=== PATIENT | female | born 1940 | race Caucasian/White ===

== ENCOUNTER 2021-05-25 16:29 | Emergency (ER) | payer MEDICARE, SELFPAY ==
[2021-05-25 16:52] VITALS: BP 151/67; PULSE 68; RESP 18; TEMP 36.8; O2SAT 97; BMI 28.8
== END 2021-05-25 19:21 | disposition left against medical advice (07) ==
PROVIDERS: Emergency Provider Emergency Medicine; PCP Nurse Practitioner Family
DX: R22.0 Localized swelling, mass and lump, head (principal)
CPT/HCPCS: 99281

== ENCOUNTER 2021-06-06 14:53 | Outpatient (REF) | payer MEDICARE, SELFPAY ==
[2021-06-06 15:51] LABS: Influenza A PCR NEGATIVE (Negative); Influenza B PCR NEGATIVE (Negative); Resp Syncy Virus RNA Qual PCR NEGATIVE (Negative); SARS COV2 PCR INHOUSE NEGATIVE (Negative)
== END 2021-06-06 14:54 | disposition home or self-care (01) ==
LOC: HO.LNP 14:53
PROVIDERS: Visit Provider Internal Medicine
DX: Z20.822 Contact with and (suspected) exposure to COVID-19 (principal)
CPT/HCPCS: 0241U

== ENCOUNTER 2021-06-28 06:07 | Outpatient (REF) | payer MEDICARE, SELFPAY ==
[2021-06-28 06:28] LABS: MANUAL DIFF FLAG NO
[2021-06-28 07:09] LABS: Basophils Percent Auto 0.1 % (0-2); Eosinophils Percent Auto 0.1 % (0-4); Hematocrit 42.7 % (37.0-47.0); Hemoglobin 13.4 g/dl (12.0-16.0); Imm Gran Abs Auto 0.11 X10*3/uL (0.00-0.03); Lymphocytes Absolute Auto 1.6 X10*3/uL (1.2-4.9); Lymphocytes Percent Auto 13.9 % (20-40); Mean Corpuscular HGB Conc 31.4 g/dl (31.0-35.0); Mean Corpuscular Hemoglobin 28.8 pg (27.0-33.0); Mean Corpuscular Volume 91.6 fL (80.0-98.0); Mean Platelet Volume 9.4 fL (9.4-12.3); Monocytes Absolute Auto 0.5 X10*3/uL (0.1-1.2); Monocytes Percent Auto 4.3 % (2-11); Neutrophils Absolute Auto 9.3 x10*3/uL (2.0-8.3); Neutrophils Percent Auto 80.6 % (45-73); Platelet Count 246 X10*3/uL (160-400); Red Blood Count 4.66 X10*6/uL (4.20-5.50); Red Cell Distribution Width 13.6 % (11.0-16.0); White Blood Count 11.5 X10*3/uL (4.8-10.8)
[2021-06-28 07:33] LABS: Alanine Aminotransferase 24 U/L (0-31); Albumin Level 4.1 g/dL (3.5-5.0); Alkaline Phosphatase 99 U/L (39-117); Anion Gap 15 (12-20); Aspartate Amino Transferase 20 U/L (5-31); Bilirubin Total 0.4 mg/dL (0.0-1.0); Blood Urea Nitrogen 26 mg/dL (9-16); Calcium 9.5 mg/dL (8.4-10.2); Carbon Dioxide 32 mmol/L (22-29); Chloride 100 mmol/L (96-108); Cholesterol 175 mg/dL; Estimated Glomerular Filt Rate 60; Glucose Fasting 118 mg/dL (60-99); HDL Cholesterol 63 mg/dL; LDL Cholesterol Calculated 92 mg/dl; Potassium 3.9 mmol/L (3.3-5.1); Sodium 143 mmol/L (135-145); Total Protein 6.9 g/dL (6.5-8.0); Triglycerides 101 mg/dL
[2021-06-28 07:54] LABS: Estimated Average Glucose 117 mg/dL; Hemoglobin A1c % 5.7 %
[2021-06-28 07:55] LABS: TSH reflex Free T4 0.72 uIU/mL (0.32-4.0)
[2021-06-28 08:04] LABS: Folate 19.2 ng/mL (> or = 4.0); Vitamin B12 600 pg/mL (200-900)
[2021-07-03 12:32] LABS: Vitamin D 25-OH, D2 <4 ng/mL; Vitamin D 25-OH, D3 36 ng/mL; Vitamin D 25-OH, Total 36 ng/mL (30-100)
== END 2021-06-28 06:08 | disposition home or self-care (01) ==
LOC: HO.LAB 06:07
PROVIDERS: PCP Internal Medicine; Visit Provider Nurse Practitioner Acute Care
DX: Z76.89 Persons encountering health services in other specified circumstances (principal)
CPT/HCPCS: 36415; 80053; 80061; 82306; 82607; 82746; 83036; 84443; 85025

== ENCOUNTER 2021-11-01 15:52 | Outpatient (REF) | payer MEDICARE, SELFPAY ==
[2021-11-01 16:42] LABS: Hematocrit 41.8 % (37.0-47.0); Hemoglobin 13.5 g/dl (12.0-16.0); Mean Corpuscular HGB Conc 32.3 g/dl (31.0-35.0); Mean Corpuscular Volume 89.7 fL (80.0-98.0); Mean Platelet Volume 9.2 fL (9.4-12.3); Platelet Count 284 X10*3/uL (160-400); Red Blood Count 4.66 X10*6/uL (4.20-5.50); Red Cell Distribution Width 13.2 % (11.0-16.0); White Blood Count 6.6 X10*3/uL (4.8-10.8)
[2021-11-01 16:56] LABS: Appearance Urine CLEAR; Color Urine YELLOW; Glucose Urine UA NEG (NEG); Leukocyte Esterase Urine 1+ (NEG); Nitrite Urine NEG (NEG); PH 5.5 (5.0-8.0); Urine Blood NEG (NEG); Urine Ketones NEG (NEG); Urine Protein NEG (NEG-TRACE)
[2021-11-01 17:00] LABS: Bacteria Urine 1+ /LPF; RBC Urine 0 /HPF (0); Squamous Epithelial Cell Urine 1+ /LPF
[2021-11-01 18:06] LABS: Alanine Aminotransferase 48 U/L (0-31); Albumin Level 4.2 g/dL (3.5-5.0); Alkaline Phosphatase 116 U/L (39-117); Anion Gap 16 (12-20); Aspartate Amino Transferase 39 U/L (5-31); Bilirubin Direct 0.2 mg/dL (0.0-0.5); Bilirubin Total 0.4 mg/dL (0.0-1.0); Blood Urea Nitrogen 25 mg/dL (9-16); Calcium 9.7 mg/dL (8.4-10.2); Carbon Dioxide 34 mmol/L (22-29); Chloride 96 mmol/L (96-108); Cholesterol 178 mg/dL; Estimated Glomerular Filt Rate 52; Glucose Random 101 mg/dL (60-115); HDL Cholesterol 43 mg/dL; LDL Cholesterol Calculated 90 mg/dl; Potassium 4.1 mmol/L (3.3-5.1); Sodium 142 mmol/L (135-145); Total Protein 7.2 g/dL (6.5-8.0); Triglycerides 225 mg/dL
[2021-11-01 18:28] LABS: Thyroid Stimulating Hormone 1.02 uIU/mL (0.32-4.0)
== END 2021-11-01 15:53 | disposition home or self-care (01) ==
LOC: HO.LAB 15:52
PROVIDERS: PCP Internal Medicine; Visit Provider Internal Medicine
DX: I48.91 Unspecified atrial fibrillation (principal); E04.1 Nontoxic single thyroid nodule
CPT/HCPCS: 36415; 80048; 80061; 80076; 81001; 84443; 85027

== ENCOUNTER 2021-12-12 08:26 | Outpatient (REF) | payer MEDICARE, SELFPAY ==
--- NOTE | ~2021-12-12 | XR_ITS ---
EXAMINATION: XR FOOT, LEFT CLINICAL INFORMATION: Primary osteoarthritis. COMPARISON: Left foot radiographs dated 10/12/2015. TECHNIQUE: AP, lateral, and oblique views of the left foot. FINDINGS: There is a minimally displaced oblique fracture in the distal diaphysis of the fifth metatarsal. The remainder of the digits are intact. Mild interphalangeal degenerative joint changes are seen. The tarsal bones are normally aligned. There is a small plantar calcaneal spur. Mild calcifications are seen proximally in the plantar fossa distally in the Achilles tendon. XR/XR foot LT min 3V IMPRESSION: 1. Minimally displaced oblique fracture of the distal metaphysis of the fifth metatarsal is of indeterminate age, but appears subacute or chronic, but was not seen on the 2016 study. Correlate with physical exam and trauma history. 2. Mild degenerative changes as detailed above represents mild interval increase from the previous study.
== END 2021-12-12 08:27 | disposition home or self-care (01) ==
LOC: HO.XRAY 08:26
PROVIDERS: PCP Internal Medicine; Visit Provider Internal Medicine
DX: M19.072 Primary osteoarthritis, left ankle and foot (principal)
CPT/HCPCS: 73630

== ENCOUNTER 2022-03-04 05:55 | Outpatient (REF) | payer MEDICARE, SELFPAY ==
[2022-03-04 06:14] LABS: MANUAL DIFF FLAG NO
[2022-03-04 07:33] LABS: Basophils Percent Auto 0.9 % (0-2); Eosinophils Absolute Auto 0.1 X10*3/uL (0.0-0.4); Eosinophils Percent Auto 1.8 % (0-4); Hematocrit 41.2 % (37.0-47.0); Hemoglobin 12.8 g/dl (12.0-16.0); Imm Gran Abs Auto 0.01 X10*3/uL (0.00-0.03); Imm Gran Pct Auto 0.2 % (0.0-0.4); Lymphocytes Absolute Auto 1.7 X10*3/uL (1.2-4.9); Lymphocytes Percent Auto 37.7 % (20-40); Mean Corpuscular HGB Conc 31.1 g/dl (31.0-35.0); Mean Corpuscular Hemoglobin 28.3 pg (27.0-33.0); Mean Corpuscular Volume 91.2 fL (80.0-98.0); Mean Platelet Volume 9.5 fL (9.4-12.3); Monocytes Absolute Auto 0.4 X10*3/uL (0.1-1.2); Monocytes Percent Auto 9.5 % (2-11); Neutrophils Absolute Auto 2.3 x10*3/uL (2.0-8.3); Neutrophils Percent Auto 49.9 % (45-73); Platelet Count 223 X10*3/uL (160-400); Red Blood Count 4.52 X10*6/uL (4.20-5.50); White Blood Count 4.5 X10*3/uL (4.8-10.8)
[2022-03-04 08:02] LABS: Alanine Aminotransferase 27 U/L (0-31); Alkaline Phosphatase 111 U/L (39-117); Anion Gap 18 (12-20); Aspartate Amino Transferase 29 U/L (5-31); Bilirubin Total 0.4 mg/dL (0.0-1.0); Blood Urea Nitrogen 23 mg/dL (9-16); Calcium 9.5 mg/dL (8.4-10.2); Carbon Dioxide 33 mmol/L (22-29); Chloride 98 mmol/L (96-108); Cholesterol 194 mg/dL; Estimated Glomerular Filt Rate 53; Glucose Fasting 102 mg/dL (60-99); HDL Cholesterol 50 mg/dL; LDL Cholesterol Calculated 113 mg/dl; Potassium 4.4 mmol/L (3.3-5.1); Sodium 145 mmol/L (135-145); Total Protein 6.6 g/dL (6.5-8.0); Triglycerides 158 mg/dL
[2022-03-04 08:14] LABS: Vitamin D 25-OH Total 55.3 ng/mL (>30)
[2022-03-04 08:30] LABS: Vitamin B12 719 pg/mL (200-900)
== END 2022-03-04 05:56 | disposition home or self-care (01) ==
LOC: HO.LAB 05:55
PROVIDERS: PCP Internal Medicine; Visit Provider Internal Medicine
DX: I48.0 Paroxysmal atrial fibrillation (principal); R73.03 Prediabetes; E78.00 Pure hypercholesterolemia, unspecified; K21.9 Gastro-esophageal reflux disease without esophagitis
CPT/HCPCS: 36415; 80053; 80061; 82306; 82607; 85025

== ENCOUNTER → 2022-05-22 10:44 | Outpatient (REF) | payer MEDICARE, SELFPAY ==
--- NOTE | ~2022-05-22 | NM_ITS ---
EXAMINATION: BONE SCAN OF THE KNEES TO THE FEET CLINICAL INFORMATION: History stress fracture left foot 2-3 weeks ago, question new fractures.. COMPARISON: No previous bone scan is available for comparison. Radiographs of the left foot dated 12/12/2021 are available for comparison.. TECHNIQUE: Multiple gamma scintillation camera images of the knees to the feet in multiple projections were performed 2.25 hours following the intravenous administration of 27 mCi Tc-99m MDP. FINDINGS: There is a discrete focus of moderately intense abnormally increased activity present in the left proximal second metatarsal bone. There is very minimally increased activity in the distal left fifth metatarsal bone, just barely visible. There are additional foci of mildly increased activity in the tarsometatarsal joint regions of the left third and fourth digits, and this is superimposed on a mild diffuse increase in activity in the left foot and ankle. There is minimally increased activity in the right ankle. No other abnormalities are present in either foot. There is mildly increased activity in the patellar compartments of both knees and faintly in the lateral compartment on the right and the medial compartment on the left. No additional abnormalities are visualized. Radiographs of the left foot dated 12/12/2021 show a minimally displaced oblique fracture the distal left fifth metatarsal bone. This corresponds well to the mild abnormality in this region described above on this bone scan. However, there was no significant abnormality in the left second metatarsal bone that corresponds to the much more prominent abnormality at this site described above on this current bone scan. NM/NM bone 3 phase IMPRESSION: The focal abnormality in the base of the left second metatarsal bone is most consistent with a recent stress fracture. Faint abnormality in the distal left fifth metatarsal bone is consistent with a healing fracture at this site. A few additional mild abnormalities in the left foot, both ankles and in the patellar compartments of both knees are most likely due to degenerative arthritic disease.
== END ==
LOC: HO.NUCMED 10:44
PROVIDERS: PCP Internal Medicine; Visit Provider Podiatrist
DX: M84.375A Stress fracture, left foot, initial encounter for fracture (principal)
CPT/HCPCS: 78315; A9503

== ENCOUNTER 2022-06-06 11:16 | Outpatient (REF) | payer MEDICARE, SELFPAY ==
[2022-06-06 14:28] LABS: Alanine Aminotransferase 20 U/L (0-31); Albumin Level 4.3 g/dL (3.5-5.0); Alkaline Phosphatase 123 U/L (39-117); Anion Gap 13 (12-20); Aspartate Amino Transferase 21 U/L (5-31); Bilirubin Total 0.6 mg/dL (0.0-1.0); Blood Urea Nitrogen 21 mg/dL (9-16); Calcium 9.5 mg/dL (8.4-10.2); Carbon Dioxide 38 mmol/L (22-29); Chloride 100 mmol/L (96-108); Estimated Glomerular Filt Rate 54; Glucose Random 103 mg/dL (60-115); Potassium 4.5 mmol/L (3.3-5.1); Sodium 146 mmol/L (135-145); Total Protein 6.9 g/dL (6.5-8.0)
== END 2022-06-06 11:17 | disposition home or self-care (01) ==
LOC: HO.10HDL 11:16
PROVIDERS: Visit Provider Internal Medicine
DX: I48.0 Paroxysmal atrial fibrillation (principal); K21.9 Gastro-esophageal reflux disease without esophagitis; I50.9 Heart failure, unspecified
CPT/HCPCS: 36415; 80053

== ENCOUNTER 2022-09-05 11:50 | Outpatient (REF) | payer MEDICARE, SELFPAY ==
[2022-09-05 13:42] LABS: MANUAL DIFF FLAG NO
[2022-09-05 13:53] LABS: Basophils Percent Auto 0.7 % (0-2); Eosinophils Absolute Auto 0.1 X10*3/uL (0.0-0.4); Eosinophils Percent Auto 0.9 % (0-4); Hematocrit 41.1 % (37.0-47.0); Imm Gran Abs Auto 0.02 X10*3/uL (0.00-0.03); Imm Gran Pct Auto 0.3 % (0.0-0.4); Lymphocytes Absolute Auto 2.1 X10*3/uL (1.2-4.9); Lymphocytes Percent Auto 35.5 % (20-40); Mean Corpuscular HGB Conc 31.6 g/dl (31.0-35.0); Mean Corpuscular Hemoglobin 28.1 pg (27.0-33.0); Mean Platelet Volume 9.1 fL (9.4-12.3); Monocytes Absolute Auto 0.5 X10*3/uL (0.1-1.2); Monocytes Percent Auto 8.3 % (2-11); Neutrophils Absolute Auto 3.1 x10*3/uL (2.0-8.3); Neutrophils Percent Auto 54.3 % (45-73); Platelet Count 276 X10*3/uL (160-400); Red Blood Count 4.62 X10*6/uL (4.20-5.50); Red Cell Distribution Width 13.9 % (11.0-16.0); White Blood Count 5.8 X10*3/uL (4.8-10.8)
[2022-09-05 13:59] LABS: Appearance Urine Clear; Color Urine Dark Yellow; Glucose Urine UA Negative (Negative); Leukocyte Esterase Urine Trace (Negative); Nitrite Urine Negative (Negative); PH 6.5 (5.0-9.0); UMIC TRIGGER UA YES; Urine Blood Negative (Negative); Urine Ketones Negative (Negative); Urine Protein Negative (Neg-Trace)
[2022-09-05 14:04] LABS: Bacteria Urine None Seen (None Seen); Hyaline Casts Urine 0-2 /LPF (0-2); RBC Urine 0-2 /HPF (0-2); Squamous Epithelial Cell Urine 0-2 /HPF (0-2); WBC Urine 0-5 /HPF (0-5)
[2022-09-05 14:24] LABS: Alanine Aminotransferase 41 U/L (0-31); Albumin Level 4.2 g/dL (3.5-5.0); Alkaline Phosphatase 131 U/L (39-117); Anion Gap 14 (12-20); Aspartate Amino Transferase 35 U/L (5-31); Bilirubin Total 0.5 mg/dL (0.0-1.0); Blood Urea Nitrogen 27 mg/dL (9-16); C Reactive Protein 0.35 mg/dL (< or = 0.50); Calcium 9.6 mg/dL (8.4-10.2); Carbon Dioxide 34 mmol/L (22-29); Chloride 100 mmol/L (96-108); Estimated Glomerular Filt Rate 49; Glucose Random 107 mg/dL (60-115); Lipase 29 U/L (8-78); Potassium 4.3 mmol/L (3.3-5.1); Sodium 144 mmol/L (135-145); Total Protein 6.9 g/dL (6.5-8.0)
== END 2022-09-05 11:51 | disposition home or self-care (01) ==
LOC: HO.10HDL 11:50
PROVIDERS: Visit Provider Internal Medicine
DX: I48.0 Paroxysmal atrial fibrillation (principal); K21.9 Gastro-esophageal reflux disease without esophagitis; R10.9 Unspecified abdominal pain
CPT/HCPCS: 36415; 80053; 81001; 83690; 85025; 86140

== ENCOUNTER → 2022-09-26 10:56 | Outpatient (BNVA) | payer MEDICARE, SELFPAY | PROVIDERS: PCP Internal Medicine; Visit Provider Physician Assistant ==

== ENCOUNTER → 2022-10-07 12:58 | Outpatient (BNVA) | payer MEDICARE, SELFPAY | PROVIDERS: PCP Internal Medicine; Referring Provider Internal Medicine; Visit Provider Physician Assistant Surgical | DX: E66.3 Overweight (principal); Z68.27 Body mass index [BMI] 27.0-27.9, adult | CPT/HCPCS: 99202 ==

== ENCOUNTER 2022-12-05 11:12 | Emergency (ER) | payer MEDICARE, SELFPAY ==
--- NOTE | ~2022-12-05 | CT_ITS ---
EXAMINATION: CT ABDOMEN AND PELVIS WITHOUT CONTRAST CLINICAL INFORMATION: Constipation for 9 days. COMPARISON: CT abdomen and pelvis 11/24/2019. TECHNIQUE: Multidetector volumetric imaging was performed from the superior aspect of the liver through the pubic symphysis. Sagittal and coronal reformatted images were obtained on the technologist's workstation. This CT examination was performed using dose optimization techniques as appropriate, variously including the following: *Automated exposure control *Adjustment of mA and/or kV according to patient size (this includes techniques or standardized protocols for targeted exams where dose is matched to indication/reason for exam; i.e. extremities or head) *Use of iterative reconstruction technique DLP: 575 mGy-cm. FINDINGS: LUNG BASES: The visualized lung bases are unremarkable. Scarring is present in the lingula and right middle lobe. Pacemaker lead is present. LIVER, GALLBLADDER, AND BILIARY TREE: The liver is normal in size, shape, and attenuation. No focal hepatic lesion or biliary ductal dilatation is present. Status post cholecystectomy. PANCREAS: Unremarkable. SPLEEN: Unremarkable. Multiple splenules are seen. ADRENAL GLANDS: Unremarkable. KIDNEYS AND URETERS: The kidneys are normal in size, shape, and attenuation. A benign 1.9 cm Bosniak class I renal cyst is noted in the left mid kidney which requires no additional imaging or followup. No solid renal masses are seen. No hydronephrosis, hydroureter, or calculi seen. No perinephric stranding. BLADDER: Unremarkable. GASTROINTESTINAL TRACT: A coloenteric anastomosis is seen in the right pelvis. The small and large bowel are otherwise unremarkable. Moderate stool burden is present throughout the colon. ABDOMINAL WALL: No significant hernia is appreciated. LYMPH NODES: Normal. 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 The left renal vein is retroaortic. Calcification present in the aorta and iliac vessels without aneurysm. PELVIC VISCERA: Patient is status post hysterectomy. An abnormal pelvic mass or free fluid is not seen. OSSEOUS STRUCTURES: Degenerative changes are noted throughout the spine. There is grade 1 anterolisthesis of L4 on L5. CT/CT abdomen pelvis wo IV con IMPRESSION: 1. A cause for the patient's lower abdominal pain has not been found. 2. Incidental note made of cholecystectomy, hysterectomy, enteric anastomosis, azygous continuation of the IVC and degenerative changes in the spine with grade 1 anterolisthesis of L4 on L5. Fleischner guidelines were followed.
[2022-12-05 11:18] VITALS: BP 152/86; PULSE 88; RESP 18; TEMP 36.2; O2SAT 97; BMI 24.3
--- NOTE | 2022-12-05 11:19 | ED_ITS ---
HPI - General Adult General Chief complaint: Abdominal Pain Stated complaint: constipation Time Seen by Provider: 12/05/22 16:04 Source: patient Mode of arrival: ambulatory Limitations: no limitations History of Present Illness HPI narrative: Patient history of atrial fibrillation chronic constipation status post volvulus surgery and bowel resection years ago no history of small-bowel obstruction takes MiraLax daily for last 7 days patient not able to move her bowels does not feel any urge to move her bowels no nausea no vomiting no new medication no weight gain feels bloated Related Data Home Medications Medication Instructions Recorded Confirmed ascorbic acid (vitamin C) 500 mg 1 mg PO DAILY 06/26/21 10/07/22 capsule aspirin 81 mg tablet,delayed 81 mg PO DAILY 06/26/21 10/07/22 release (Adult Low Dose Aspirin) calcium carbonate 600 mg-vitamin 1 tab PO BID 06/26/21 10/07/22 D3 10 mcg (400 unit) tablet (Calcium with Vitamin D) cholecalciferol (vitamin D3) 25 25 mcg PO DAILY 06/26/21 10/07/22 mcg (1,000 unit) capsule docusate sodium 100 mg capsule 100 mg PO DAILY 06/26/21 10/07/22 (Stool Softener) multivit with 1 tab PO DAILY 06/26/21 10/07/22 icbutfpv-yxej-ER-lutein 8 mg iron-400 mcg-300 mcg tablet (Centrum Silver Women) simethicone 125 mg capsule (Gas-X 125 mg PO BEDTIME PRN 06/26/21 10/07/22 Extra Strength) torsemide 20 mg tablet 20 mg PO BID 06/26/21 10/07/22 AREDS2 PO BID 09/26/22 10/07/22 MAGNESIUM PO 09/26/22 10/07/22 TUMERIC PO 09/26/22 10/07/22 VITAMIN SUPER B COMPLEX PO 09/26/22 10/07/22 albuterol sulfate 90 mcg/actuation 2 inh inhalation Q4-6H PRN 09/26/22 10/07/22 breath activated powder inhaler (ProAir RespiClick) dicyclomine 10 mg capsule 10 mg PO BEDTIME PRN 09/26/22 10/07/22 fluticasone propionate 50 2 spray intranasal DAILY PRN 09/26/22 10/07/22 mcg/actuation nasal spray,suspension polyethylene glycol 3350 17 17 g PO DAILY 09/26/22 10/07/22 gram/dose oral powder (Miralax) Previous Rx's Medication Instructions Recorded omeprazole 20 mg tablet,delayed 20 mg PO DAILY #90 tabs 11/16/21 release apixaban 5 mg tablet (Eliquis) 5 mg PO BID #180 tabs 02/12/22 ezetimibe 10 mg tablet 10 mg PO DAILY #90 tabs 06/07/22 bisacodyl 5 mg tablet,delayed 10 mg PO BEDTIME PRN Constipation 12/05/22 release (Dulcolax (bisacodyl)) 20 days #20 tabs Allergies Allergy/AdvReac Type Severity Reaction Status Date / Time ciprofloxacin [Ciprofloxacin] Allergy Severe WHOLE Verified 12/05/22 11:20 DIGESTIVE SYSTEM SHUT DOWN gluten [GLUTEN] Allergy Intermediate DIARRHEA Verified 12/05/22 11:20 Sulfa (Sulfonamide Allergy Mild NAUSEA & Verified 12/05/22 11:20 Antibiotics) VOMITING, vomiting Doxycycline Hyclate Allergy Unknown severe Uncoded 12/05/22 11:20 thrush gluten Allergy Unknown (+) celiacs Uncoded 12/05/22 11:20 cipro AdvReac Unknown n/v Uncoded 12/05/22 11:20 sulfa AdvReac Unknown vomiting Uncoded 12/05/22 11:20 Review of Systems Review of Systems: Yes all other systems are reviewed and are negative [facility] Past Medical History Medical History Arthritis of right knee Atrial fibrillation Cancer of right breast Diastolic heart failure GERD (gastroesophageal reflux disease) Nodule of upper lobe of right lung Pacemaker Seasonal allergic rhinitis Thyroid nodule Vitamin D deficiency Surgical History H/O partial mastectomy H/O partial resection of colon History of appendectomy History of bladder suspension procedure History of cardiac radiofrequency ablation History of cholecystectomy History of hysterectomy Hx of cardiac pacemaker Hx of corrected cleft lip and palate Hx of tooth extraction Family History Family History Mother No problems noted. Father No problems noted. Social History Social History Housing: House Alcohol intake: never Patient Tobacco Use Status: Former Tobacco user Tobacco use type: Cigarette Smoked in Last 30 Days: No e-Cigarette/Vaping Use: Never Used Second Hand Smoke Exposure: No Use of substances other than those prescribed or required for medical reasons: No Advance Directives: No Advance Directives Information Provided: No service: No Current occupational status: retired Cognitive needs: No Hearing needs: No Vision needs: Yes (Glasses) Physical Exam ED Vital Signs: Vital Signs - 24 hr 12/05/22 11:18 12/05/22 16:38 Temperature 97.2 F 98.4 F Pulse Rate 88 62 Respiratory Rate 18 16 Blood Pressure 152/86 H 154/64 H Pulse Oximetry 97 97 Oxygen Delivery Method Room Air Room Air BMI result Body Mass Index 24.3 Appearance: Alert. Oriented X3. No acute distress. Eyes: PERRLA, No Nystagmus ENT: Pharynx normal. Oral Mucosa moist Neck: Normal inspection. Neck supple. CVS: Normal heart rate and rhythm. Pulses normal. Respiratory: No respiratory distress. Equal air entry bilateral, no wheezing/rales/rhonchi Abdomen: Soft and nontender. Bowel sounds are present, no mass palpable, no CVA tenderness rectal: No stool in the rectum Skin: Skin warm and dry. Normal skin color. Normal skin turgor. Extremities: No lower extremity edema. No calf tenderness Neuro: Oriented X 3. No motor deficit. No sensory deficit.No cerebellar signs , cranial nerves II-XII intact Course Course Course Narrative: This is an RME: Additional HPI, ROS, PE not included below will be deferred to primary provider. 82 yo f hx of afib on thinner, GERD, heart faliure presents w/ constipation, abd discomfort/ distention, nausea X9 days, last passed flatus a few days ago. Hx of obstructions Plan- labs, ct, ua Medications Administered Discontinued Medications Generic Name Dose Route Start Last Admin Trade Name Freq PRN Reason Stop Dose Admin Bisacodyl 10 mg 12/05/22 16:36 12/05/22 16:52 Bisacodyl 5 Mg Tablet.Dr PO 12/05/22 16:37 10 mg ONCE ONE Administration Magnesium Hydroxide 30 ml 12/05/22 16:36 12/05/22 16:52 Milk Of Magnesia 30 Ml Oral.Susp PO 12/05/22 16:37 30 ml ONCE ONE Administration Medical Decision Making Medical Decision Making [facility] Narrative: Patient constipation but without any obstruction S X. Was given extra dose of milk of magnesia and Dulcolax. Labs are stable slightly dehydrated was getting the fluids , TSH was done which was normal Differential Diagnosis Fecal impaction/small bowel obstruction/ hypothyroidism Lab Data [facility] Lab Attestation statement: I reviewed the patient's lab results. 12/05/22 11:48 12/05/22 11:48 Labs: Lab Results 12/05/22 12/05/22 Range/Units 11:48 11:48 WBC 9.7 (4.8-10.8) X10*3/uL RBC 5.04 (4.20-5.50) X10*6/uL Hgb 14.4 (12.0-16.0) g/dl Hct 44.3 (37.0-47.0) % MCV 87.9 (80.0-98.0) fL MCH 28.6 (27.0-33.0) pg MCHC 32.5 (31.0-35.0) g/dl RDW 14.9 (11.0-16.0) % Plt Count 218 (160-400) X10*3/uL MPV 8.7 L (9.4-12.3) fL Immature Gran % (Auto) 0.5 H (0.0-0.4) % Neut % (Auto) 74.8 H (45-73) % Lymph % (Auto) 18.8 L (20-40) % [place] % (Auto) 5.3 (2-11) % Eos % (Auto) 0.2 (0-4) % Baso % (Auto) 0.4 (0-2) % Lymph # (Auto) 1.8 (1.2-4.9) X10*3/uL [place] # (Auto) 0.5 (0.1-1.2) X10*3/uL Eos # (Auto) 0.0 (0.0-0.4) X10*3/uL Baso # (Auto) 0.0 (0.0-0.2) X10*3/uL Abs Immat Gran (auto) 0.05 H (0.00-0.03) X10*3/uL Absolute Neuts (auto) 7.3 (2.0-8.3) x10*3/uL Absolute Nucleated RBC 0.000 (0.0-0.012) X10*3/uL Nucleated RBC % (auto) 0.0 (0.0-0.2) /100WBC Sodium 140 (135-145) mmol/L Potassium 3.8 (3.3-5.1) mmol/L Chloride 89 L (96-108) mmol/L Carbon Dioxide 41 H* D (22-29) mmol/L Anion Gap 14 (12-20) BUN 35 H (9-16) mg/dL Creatinine 0.97 (0.5-1.4) mg/dL Estim Creat Clear Calc 43.5 Estimated GFR 55 Random Glucose 116 H (60-115) mg/dL Calcium 10.2 D (8.4-10.2) mg/dL Magnesium 2.6 (1.6-2.6) mg/dL Total Bilirubin 1.0 (0.0-1.0) mg/dL AST 34 H (5-31) U/L ALT 42 H (0-31) U/L Alkaline Phosphatase 111 (39-117) U/L Total Protein 7.6 (6.5-8.0) g/dL Albumin 4.1 (3.5-5.0) g/dL TSH 1.02 (0.32-4.0) uIU/mL Discharge Plan Discharge Clinical Impression: Constipation Patient Disposition: Home, Self-Care Instructions: Constipation (ED) Additional Instructions: Continue MiraLax daily, may repeated 2 times if not able to move your bowels Take Dulcolax if constipation continue Follow with PCP Prescriptions: New bisacodyl [Dulcolax (bisacodyl)] 5 mg tablet,delayed release (DR/EC) 10 mg PO BEDTIME PRN (Reason: Constipation) 20 Days Qty: 20 0RF No Action omeprazole 20 mg tablet,delayed release (DR/EC) 20 mg PO DAILY Qty: 90 1RF Eliquis 5 mg tablet 5 mg PO BID Qty: 180 0RF ezetimibe 10 mg tablet 10 mg PO DAILY Qty: 90 1RF torsemide 20 mg tablet 20 mg PO BID aspirin [Adult Low Dose Aspirin] 81 mg tablet,delayed release (DR/EC) 81 mg PO DAILY Centrum Silver Women 8 mg iron-400 mcg-300 mcg tablet 1 tab PO DAILY ascorbic acid (vitamin C) 500 mg capsule 1 mg PO DAILY calcium carbonate-vitamin D3 [Calcium with Vitamin D] 600 mg-10 mcg (400 unit) tablet 1 tab PO BID cholecalciferol (vitamin D3) 25 mcg (1,000 unit) capsule 25 mcg PO DAILY simethicone [Gas-X Extra Strength] 125 mg capsule 125 mg PO BEDTIME PRN docusate sodium [Stool Softener] 100 mg capsule 100 mg PO DAILY ProAir RespiClick 90 mcg/actuation aerosol powdr breath activated 2 inh inhalation Q4-6H PRN dicyclomine 10 mg capsule 10 mg PO BEDTIME PRN fluticasone propionate 50 mcg/actuation spray,suspension 2 spray intranasal DAILY PRN Rx Instructions: administer into each nostril MAGNESIUM PO TUMERIC PO AREDS2 PO BID polyethylene glycol 3350 [Miralax] 17 gram/dose powder 17 g PO DAILY VITAMIN SUPER B COMPLEX PO Interventions: ED Discharge Assessment Last Done: 12/05/22 17:28 Discharge Date/Time: 12/05/22 17:29
[2022-12-05 11:53] LABS: MANUAL DIFF FLAG NO
[2022-12-05 11:56] LABS: Basophils Percent Auto 0.4 % (0-2); Eosinophils Percent Auto 0.2 % (0-4); Hematocrit 44.3 % (37.0-47.0); Hemoglobin 14.4 g/dl (12.0-16.0); Imm Gran Abs Auto 0.05 X10*3/uL (0.00-0.03); Imm Gran Pct Auto 0.5 % (0.0-0.4); Lymphocytes Absolute Auto 1.8 X10*3/uL (1.2-4.9); Lymphocytes Percent Auto 18.8 % (20-40); Mean Corpuscular HGB Conc 32.5 g/dl (31.0-35.0); Mean Corpuscular Hemoglobin 28.6 pg (27.0-33.0); Mean Corpuscular Volume 87.9 fL (80.0-98.0); Mean Platelet Volume 8.7 fL (9.4-12.3); Monocytes Absolute Auto 0.5 X10*3/uL (0.1-1.2); Monocytes Percent Auto 5.3 % (2-11); Neutrophils Absolute Auto 7.3 x10*3/uL (2.0-8.3); Neutrophils Percent Auto 74.8 % (45-73); Platelet Count 218 X10*3/uL (160-400); Red Blood Count 5.04 X10*6/uL (4.20-5.50); Red Cell Distribution Width 14.9 % (11.0-16.0); White Blood Count 9.7 X10*3/uL (4.8-10.8)
[2022-12-05 12:14] LABS: Alanine Aminotransferase 42 U/L (0-31); Albumin Level 4.1 g/dL (3.5-5.0); Alkaline Phosphatase 111 U/L (39-117); Anion Gap 14 (12-20); Aspartate Amino Transferase 34 U/L (5-31); Blood Urea Nitrogen 35 mg/dL (9-16); Calcium 10.2 mg/dL (8.4-10.2); Carbon Dioxide 41 mmol/L (22-29); Chloride 89 mmol/L (96-108); Creatinine Clr Calc Pharmacy 43.5; Estimated Glomerular Filt Rate 55; Glucose Random 116 mg/dL (60-115); Magnesium 2.6 mg/dL (1.6-2.6); Potassium 3.8 mmol/L (3.3-5.1); Sodium 140 mmol/L (135-145); Total Protein 7.6 g/dL (6.5-8.0)
[2022-12-05 16:38] VITALS: BP 154/64; PULSE 62; RESP 16; TEMP 36.9; O2SAT 97
[2022-12-05] MEDS: Milk of Magnesia 30 ML ORAL.SUSP PO (16:52)
[2022-12-05] MEDS: bisacodyL 5 MG TABLET.DR 10 MG PO (16:52)
[2022-12-05 18:19] LABS: Thyroid Stimulating Hormone 1.02 uIU/mL (0.32-4.0)
== END 2022-12-05 17:29 | disposition home or self-care (01) ==
PROVIDERS: Physician Assistant; Emergency Provider Internal Medicine; PCP Internal Medicine
DX: K59.00 Constipation, unspecified (principal); R10.13 Epigastric pain; Z79.899 Other long term (current) drug therapy
CPT/HCPCS: 36415; 74176; 80053; 83735; 84443; 85025; 99284

== ENCOUNTER 2022-12-06 14:30 | Emergency (ER) | payer MEDICARE, SELFPAY ==
[2022-12-06 14:33] VITALS: BP 140/74; PULSE 90; RESP 18; TEMP 36.8; O2SAT 97; BMI 25.1
--- NOTE | 2022-12-06 14:33 | ED.GENADULT ---
HPI - General Adult General Chief complaint: Abdominal Pain Stated complaint: was here yesterday; doctor told her to come back? Time Seen by Provider: 12/06/22 15:16 History of Present Illness HPI narrative: Patient complains of constipation for several days, no vomiting no significant abdominal pain no fever She came here yesterday for the same complaint had a CT scan which did not reveal acute abnormalities She was given script for ducolax and milk of magnesia, she drank them this morning and they made her nauseous and she threw up once, but has had no nausea or vomiting since and tolerates p.o. She called her doctor who recommended she go to the ER for an enema At this time she has no significant abdominal pain no nausea no vomiting no diarrhea no dysuria Related Data Home Medications Medication Instructions Recorded Confirmed ascorbic acid (vitamin C) 500 mg 1 mg PO DAILY 06/26/21 10/07/22 capsule aspirin 81 mg tablet,delayed 81 mg PO DAILY 06/26/21 10/07/22 release (Adult Low Dose Aspirin) calcium carbonate 600 mg-vitamin 1 tab PO BID 06/26/21 10/07/22 D3 10 mcg (400 unit) tablet (Calcium with Vitamin D) cholecalciferol (vitamin D3) 25 25 mcg PO DAILY 06/26/21 10/07/22 mcg (1,000 unit) capsule docusate sodium 100 mg capsule 100 mg PO DAILY 06/26/21 10/07/22 (Stool Softener) multivit with 1 tab PO DAILY 06/26/21 10/07/22 sqjpmifq-gqlh-ZQ-lutein 8 mg iron-400 mcg-300 mcg tablet (Centrum Silver Women) simethicone 125 mg capsule (Gas-X 125 mg PO BEDTIME PRN 06/26/21 10/07/22 Extra Strength) torsemide 20 mg tablet 20 mg PO BID 06/26/21 10/07/22 AREDS2 PO BID 09/26/22 10/07/22 MAGNESIUM PO 09/26/22 10/07/22 TUMERIC PO 09/26/22 10/07/22 VITAMIN SUPER B COMPLEX PO 09/26/22 10/07/22 albuterol sulfate 90 mcg/actuation 2 inh inhalation Q4-6H PRN 09/26/22 10/07/22 breath activated powder inhaler (ProAir RespiClick) dicyclomine 10 mg capsule 10 mg PO BEDTIME PRN 09/26/22 10/07/22 fluticasone propionate 50 2 spray intranasal DAILY PRN 09/26/22 10/07/22 mcg/actuation nasal spray,suspension polyethylene glycol 3350 17 17 g PO DAILY 09/26/22 10/07/22 gram/dose oral powder (Miralax) Previous Rx's Medication Instructions Recorded omeprazole 20 mg tablet,delayed 20 mg PO DAILY #90 tabs 11/16/21 release apixaban 5 mg tablet (Eliquis) 5 mg PO BID #180 tabs 02/12/22 ezetimibe 10 mg tablet 10 mg PO DAILY #90 tabs 06/07/22 bisacodyl 5 mg tablet,delayed 10 mg PO BEDTIME PRN Constipation 12/05/22 release (Dulcolax (bisacodyl)) 20 days #20 tabs Allergies Allergy/AdvReac Type Severity Reaction Status Date / Time ciprofloxacin [Ciprofloxacin] Allergy Severe WHOLE Verified 12/05/22 11:20 DIGESTIVE SYSTEM SHUT DOWN gluten [GLUTEN] Allergy Intermediate DIARRHEA Verified 12/05/22 11:20 Sulfa (Sulfonamide Allergy Mild NAUSEA & Verified 12/05/22 11:20 Antibiotics) VOMITING, vomiting Doxycycline Hyclate Allergy Unknown severe Uncoded 12/05/22 11:20 thrush gluten Allergy Unknown (+) celiacs Uncoded 12/05/22 11:20 cipro AdvReac Unknown n/v Uncoded 12/05/22 11:20 sulfa AdvReac Unknown vomiting Uncoded 12/05/22 11:20 PMF Past Medical History Source: nursing notes reviewed Medical History Arthritis of right knee Atrial fibrillation Cancer of right breast Diastolic heart failure GERD (gastroesophageal reflux disease) Nodule of upper lobe of right lung Pacemaker Seasonal allergic rhinitis Thyroid nodule Vitamin D deficiency Surgical History H/O partial mastectomy H/O partial resection of colon History of appendectomy History of bladder suspension procedure History of cardiac radiofrequency ablation History of cholecystectomy History of hysterectomy Hx of cardiac pacemaker Hx of corrected cleft lip and palate Hx of tooth extraction Family History Family History Mother No problems noted. Father No problems noted. Social History Social History Housing: House Alcohol intake: never Patient Tobacco Use Status: Former Tobacco user Tobacco use type: Cigarette Smoked in Last 30 Days: No e-Cigarette/Vaping Use: Never Used Second Hand Smoke Exposure: No Use of substances other than those prescribed or required for medical reasons: No Advance Directives: Yes Advance Directives Information Provided: Yes Advance Directives on File: No service: No Current occupational status: retired Cognitive needs: No Hearing needs: No Vision needs: Yes (Glasses) Physical Exam ED Vital Signs: Vital Signs - 24 hr 12/06/22 14:33 Temperature 98.2 F Pulse Rate 90 Respiratory Rate 18 Blood Pressure 140/74 H Pulse Oximetry 97 Oxygen Delivery Method Room Air BMI result Body Mass Index 25.1 general appearance comfortable Axe no acute distress Eyes anicteric no pallor Neck is supple Respiratory no distress Chest clear to auscultation bilateral Abdomen is soft and nontender no rebound no guarding Extremities range of motion x4 Course Course Course Narrative: This is an RME: Additional HPI, ROS, PE not included below will be deferred to primary provider. 82 yo f hx of afib on thinner, GERD, heart faliure presents w/ constipation, abd discomfort/ distention, nausea? X10 days, last passed flatus a few days ago. Hx of obstructions. DC w/ milk of magnesia, miralax and dulcolax yesterday. PCP wants her to get an enema . Reports she vomited X1 after taking milk of magnesia. Plan- enema ordered. No labs or imaging ordered as patient had them done yesterday unremarkable. Labs including chemistry LFTs and CBC were recheck with no acute abnormality CT results from yesterday did not reveal any acute or emergent findings Patient says condition from yesterday's completely unchanged, her main complaint is constipation, no significant abdominal pain or discomfort no vomiting no nausea except for the 1 episode after drinking her arin-ywc-egikkul products, but otherwise tolerating p.o. without nausea now She was given an enema and was able to put out some stool and repeat abdominal exam remains nontender and benign, patient is comfortable and she is discharged Medications Administered Discontinued Medications Generic Name Dose Route Start Last Admin Trade Name Freq PRN Reason Stop Dose Admin Sodium Biphosphate/Sodium Phosphate 133 ml 12/06/22 14:56 12/06/22 15:40 Sodium Phosphate,[place]cl[place]-Dibasic 133 Ml Enema [place] 12/06/22 14:57 133 ml ONCE ONE Administration Discharge Plan Discharge Clinical Impression: Constipation Patient Disposition: Home, Self-Care Additional Instructions: the enema and able due to pass some stool here You may need to go to the bathroom several times over the coming hours so stay at home today Return any time for abdominal pain, vomiting dehydration, any worse condition or any concerns Prescriptions: No Action omeprazole 20 mg tablet,delayed release (DR/EC) 20 mg PO DAILY Qty: 90 1RF Eliquis 5 mg tablet 5 mg PO BID Qty: 180 0RF ezetimibe 10 mg tablet 10 mg PO DAILY Qty: 90 1RF bisacodyl [Dulcolax (bisacodyl)] 5 mg tablet,delayed release (DR/EC) 10 mg PO BEDTIME PRN (Reason: Constipation) 20 Days Qty: 20 0RF torsemide 20 mg tablet 20 mg PO BID aspirin [Adult Low Dose Aspirin] 81 mg tablet,delayed release (DR/EC) 81 mg PO DAILY Centrum Silver Women 8 mg iron-400 mcg-300 mcg tablet 1 tab PO DAILY ascorbic acid (vitamin C) 500 mg capsule 1 mg PO DAILY calcium carbonate-vitamin D3 [Calcium with Vitamin D] 600 mg-10 mcg (400 unit) tablet 1 tab PO BID cholecalciferol (vitamin D3) 25 mcg (1,000 unit) capsule 25 mcg PO DAILY simethicone [Gas-X Extra Strength] 125 mg capsule 125 mg PO BEDTIME PRN docusate sodium [Stool Softener] 100 mg capsule 100 mg PO DAILY ProAir RespiClick 90 mcg/actuation aerosol powdr breath activated 2 inh inhalation Q4-6H PRN dicyclomine 10 mg capsule 10 mg PO BEDTIME PRN fluticasone propionate 50 mcg/actuation spray,suspension 2 spray intranasal DAILY PRN Rx Instructions: administer into each nostril MAGNESIUM PO TUMERIC PO AREDS2 PO BID polyethylene glycol 3350 [Miralax] 17 gram/dose powder 17 g PO DAILY VITAMIN SUPER B COMPLEX PO
[2022-12-06] MEDS: Sodium Phosphate,Mono-Dibasic 133 ML ENEMA PR (15:40)
[2022-12-06 16:00] VITALS: BP 135/60; PULSE 97
== END 2022-12-06 15:57 | disposition home or self-care (01) ==
PROVIDERS: Emergency Provider Emergency Medicine Emergency Medical Services; PCP Internal Medicine
DX: K59.00 Constipation, unspecified (principal); I49.1 Atrial premature depolarization; Z95.0 Presence of cardiac pacemaker; Z90.49 Acquired absence of other specified parts of digestive tract; Z90.710 Acquired absence of both cervix and uterus; Z85.3 Personal history of malignant neoplasm of breast; Z90.10 Acquired absence of unspecified breast and nipple; Z87.891 Personal history of nicotine dependence; Z79.01 Long term (current) use of anticoagulants; Z79.82 Long term (current) use of aspirin; Z79.899 Other long term (current) drug therapy
CPT/HCPCS: 99283; 99284

== ENCOUNTER 2023-03-14 05:56 | Outpatient (REF) | payer MEDICARE, SELFPAY ==
[2023-03-14 06:15] LABS: MANUAL DIFF FLAG NO
[2023-03-14 07:46] LABS: Basophils Absolute Auto 0.1 X10*3/uL (0.0-0.2); Basophils Percent Auto 0.8 % (0-2); Eosinophils Absolute Auto 0.1 X10*3/uL (0.0-0.4); Hematocrit 40.3 % (37.0-47.0); Hemoglobin 12.9 g/dl (12.0-16.0); Imm Gran Abs Auto 0.02 X10*3/uL (0.00-0.03); Imm Gran Pct Auto 0.3 % (0.0-0.4); Lymphocytes Absolute Auto 2.4 X10*3/uL (1.2-4.9); Lymphocytes Percent Auto 39.3 % (20-40); Mean Corpuscular Hemoglobin 29.8 pg (27.0-33.0); Mean Corpuscular Volume 93.1 fL (80.0-98.0); Mean Platelet Volume 9.6 fL (9.4-12.3); Monocytes Absolute Auto 0.6 X10*3/uL (0.1-1.2); Monocytes Percent Auto 9.3 % (2-11); Neutrophils Percent Auto 49.3 % (45-73); Platelet Count 208 X10*3/uL (160-400); Red Blood Count 4.33 X10*6/uL (4.20-5.50); Red Cell Distribution Width 13.7 % (11.0-16.0)
[2023-03-14 08:47] LABS: Alanine Aminotransferase 28 U/L (0-31); Albumin Level 4.1 g/dL (3.5-5.0); Alkaline Phosphatase 108 U/L (39-117); Anion Gap 20 (12-20); Aspartate Amino Transferase 28 U/L (5-31); Bilirubin Total 0.5 mg/dL (0.0-1.0); Blood Urea Nitrogen 19 mg/dL (9-16); Calcium 9.9 mg/dL (8.4-10.2); Carbon Dioxide 30 mmol/L (22-29); Chloride 99 mmol/L (96-108); Cholesterol 178 mg/dL (<200); Estimated Glomerular Filt Rate > 60; Glucose Fasting 108 mg/dL (60-99); HDL Cholesterol 59 mg/dL (>40); LDL Cholesterol Calculated 99 mg/dL (<100); Potassium 3.3 mmol/L (3.3-5.1); Sodium 146 mmol/L (135-145); Triglycerides 101 mg/dL (<150)
== END 2023-03-14 05:57 | disposition home or self-care (01) ==
LOC: HO.LAB 05:56
PROVIDERS: PCP Internal Medicine; Visit Provider Internal Medicine
DX: I48.0 Paroxysmal atrial fibrillation (principal); K21.9 Gastro-esophageal reflux disease without esophagitis; E78.00 Pure hypercholesterolemia, unspecified; I50.9 Heart failure, unspecified; K58.9 Irritable bowel syndrome, unspecified
CPT/HCPCS: 36415; 80053; 80061; 85025

== ENCOUNTER 2023-08-15 11:25 | Outpatient (REF) | payer MEDICARE, SELFPAY ==
--- NOTE | ~2023-08-15 | XR_ITS ---
EXAM: X-RAY CHEST X-RAY ABDOMEN INDICATION: Abdominal pain and chest discomfort. TECHNIQUE: 2 views of the chest. 4 views of the abdomen including AP and supine views. COMPARISON: CT abdomen and pelvis of 12/05/2022. Chest radiographs of 11/13/2018 and 10/12/2018. CT chest of 11/13/2018. FINDINGS: CHEST: Lung volumes are low. There is no gross pneumothorax. Left subclavian approach single lead pacer with lead projecting over right heart. Heart size within normal limits. Bibasilar opacities may represent atypical edema, infectious/inflammatory process, and/or atelectasis. No gross pleural effusion. Degenerative changes in the thoracic spine. ABDOMEN: There is no evidence of free intraperitoneal air. Surgical clips in the right upper quadrant of the abdomen. Degenerative changes in the lumbar spine and bilateral hips. Moderate amount of stool in the colon. Moderate amount of gas scattered throughout loops of small bowel. There is a paucity of gas in the colon. XR/XR chest 2V IMPRESSION: 1. Bibasilar opacities may represent atypical edema, infectious/inflammatory process, and/or atelectasis. 2. Moderate amount of stool in the colon. Moderate amount of gas scattered throughout loops of small bowel. There is a paucity of gas in the colon. This study was presented today August 19, 2023 for interpretation. PSA staff will provide results to referring provider at this time.
--- NOTE | ~2023-08-15 | XR_ITS ---
EXAM: X-RAY CHEST X-RAY ABDOMEN INDICATION: Abdominal pain and chest discomfort. TECHNIQUE: 2 views of the chest. 4 views of the abdomen including AP and supine views. COMPARISON: CT abdomen and pelvis of 12/05/2022. Chest radiographs of 11/13/2018 and 10/12/2018. CT chest of 11/13/2018. FINDINGS: CHEST: Lung volumes are low. There is no gross pneumothorax. Left subclavian approach single lead pacer with lead projecting over right heart. Heart size within normal limits. Bibasilar opacities may represent atypical edema, infectious/inflammatory process, and/or atelectasis. No gross pleural effusion. Degenerative changes in the thoracic spine. ABDOMEN: There is no evidence of free intraperitoneal air. Surgical clips in the right upper quadrant of the abdomen. Degenerative changes in the lumbar spine and bilateral hips. Moderate amount of stool in the colon. Moderate amount of gas scattered throughout loops of small bowel. There is a paucity of gas in the colon. XR/XR abdomen min 2V IMPRESSION: 1. Bibasilar opacities may represent atypical edema, infectious/inflammatory process, and/or atelectasis. 2. Moderate amount of stool in the colon. Moderate amount of gas scattered throughout loops of small bowel. There is a paucity of gas in the colon. This study was presented today August 19, 2023 for interpretation. PSA staff will provide results to referring provider at this time.
== END 2023-08-15 11:26 | disposition home or self-care (01) ==
LOC: HO.XRAY 11:25
PROVIDERS: PCP Internal Medicine; Visit Provider Internal Medicine
DX: R10.9 Unspecified abdominal pain (principal); R07.9 Chest pain, unspecified
CPT/HCPCS: 71046; 74019

== ENCOUNTER 2023-09-11 07:04 | Outpatient (REF) | payer MEDICARE, SELFPAY ==
--- NOTE | ~2023-09-11 | FL_ITS ---
EXAMINATION: XR FLUOROSCOPY UPPER GI WITH AIR CLINICAL INFORMATION: Epigastric pain COMPARISON: None available. TECHNIQUE: Fluoroscopic air contrast upper GI examination was performed utilizing standard techniques with thin and thick barium and effervescent granules. Numerous spot images were obtained. FINDINGS: A pacemaker is present in the left chest. Single lead extends into the right ventricle. There are cholecystectomy clips. Premature spillage of contrast into the hypopharynx noted. Persistent pooling in the vallecula and piriform sinuses. No aspiration or penetration. Dual and single contrast images of the esophagus demonstrate patulous caliber. Within the mid esophagus, there is a suggestion of some linear fold thickening as well as mildly irregular mucosa. Small submucosal ulcers may be present (RF 1-3, image 47 of 89). Cannot exclude erosive esophagitis or Villatoro's change. No evidence of stricture or mass. There is to and fro motion of the barium column with nonpropulsive tertiary contractions noted throughout the esophagus. A moderate-sized type I hiatal hernia is present. Gastroesophageal reflux is seen up to the thoracic inlet. Dual contrast and single contrast images of the stomach demonstrated a normal contour. The gastric rugal folds appear significantly thickened. No masses or ulcerations are seen. Contrast freely passed into the gastric antrum and duodenal bulb without delay. Single and air-contrast images of the duodenal bulb demonstrate no abnormality. The duodenal sweep is difficult to evaluate although the ligament of Treitz does not appear to reside in the appropriate location. Findings are suggestive of a midgut malrotation (RF 1-7). The imaged proximal jejunum is also difficult to evaluate. FLUOROSCOPY TIME: 2 minutes 53 seconds Number of Spot Images: 9 Number of Cine: 9 DOSE AREA PRODUCT: 1642 uGy-m2 (microgray-meter squared) FL/FL upper GI w air w Ba Swallow IMPRESSION: 1. Esophageal dysmotility and findings suggesting esophagitis, possibly erosive, in the upper mid region. Cannot exclude Villatoro's change. 2. Patulous esophagus with a moderate-sized type I hiatal hernia. Disordered esophageal motility. 3. Significant gastroesophageal reflux. 4. Thickened gastric rugal folds highly suggestive of gastritis. 5. Midgut malrotation. 6. Poor evaluation of the proximal jejunum. This procedure was performed by Carrillo Fuentes PA-C, and supervised by Dr. Hale
== END 2023-09-11 07:05 | disposition home or self-care (01) ==
LOC: HO.XRAY 07:04
PROVIDERS: PCP Internal Medicine; Visit Provider Internal Medicine
DX: R10.13 Epigastric pain (principal)
CPT/HCPCS: 74246

== ENCOUNTER → 2023-09-11 07:06 | Outpatient (BNV) | payer MEDICARE, SELFPAY | PROVIDERS: PCP Internal Medicine; Visit Provider Physician Assistant Surgical | DX: R10.13 Epigastric pain (principal) | CPT/HCPCS: 74246 ==

== ENCOUNTER 2023-09-25 13:09 | Day surgery (SDC) | payer MEDICARE, SELFPAY ==
[2023-09-25 14:29] VITALS: BMI 26.4
--- NOTE | 2023-09-25 14:39 | HO.ANESPROP2 ---
[facility] Active Problems Active Problems: All Active Problems Overweight (BMI 25.0-29.9) (Acute) Fracture of 5th metatarsal (Acute) Osteoarthritis of left foot (Acute) Annual physical exam (Acute) Acute gout of left foot (Acute) Gout (Acute) Hypercholesteremia (Acute) Osteoporosis (Acute) Encounter to establish care (Acute) Atrial fibrillation (Acute) Thyroid nodule (Acute) Seasonal allergic rhinitis (Acute) Nodule of upper lobe of right lung (Acute) Arthritis of right knee (Acute) GERD (gastroesophageal reflux disease) (Acute) Vitamin D deficiency (Acute) H/O partial resection of colon (Acute) Cancer of right breast (Acute) H/O partial mastectomy (Acute) Diastolic heart failure (Acute) Past Medical History Medical History (Updated 09/24/23 @ 09:38 by Karissa Ace RN) Cataracts, both eyes Kidney disease Hiatal hernia Celiac disease Hyperlipidemia HTN (hypertension) Duodenal ulcer SVT (supraventricular tachycardia) Atrial fibrillation Thyroid nodule Seasonal allergic rhinitis Nodule of upper lobe of right lung Arthritis of right knee GERD (gastroesophageal reflux disease) Vitamin D deficiency Cancer of right breast Diastolic heart failure Pacemaker Family History Family History Mother No problems noted. Father No problems noted. Family history of problems with anesthesia: No Surgical History Surgical History (Updated 09/24/23 @ 09:40 by Karissa Ace RN) S/P GODWIN (total abdominal hysterectomy) History of toe surgery Hx of tooth extraction History of bladder suspension procedure Hx of cardiac pacemaker H/O partial resection of colon H/O partial mastectomy History of cardiac radiofrequency ablation History of cholecystectomy History of appendectomy History of hysterectomy Hx of corrected cleft lip and palate History of Problems with Anesthesia: No Social History Social History Housing: House Alcohol intake: never Patient Tobacco Use Status: Former Tobacco user Tobacco use type: Cigarette e-Cigarette/Vaping Use: Never Used Second Hand Smoke Exposure: No Advance Directives: No Advance Directives Information Provided: Yes service: No Current occupational status: retired Cognitive needs: No Hearing needs: No Vision needs: Yes (Glasses) Meds Allergies Allergy/AdvReac Type Severity Reaction Status Date / Time ciprofloxacin [Ciprofloxacin] Allergy Severe WHOLE Verified 12/05/22 11:20 DIGESTIVE SYSTEM SHUT DOWN gluten [GLUTEN] Allergy Intermediate DIARRHEA Verified 12/05/22 11:20 Sulfa (Sulfonamide Allergy Mild NAUSEA & Verified 12/05/22 11:20 Antibiotics) VOMITING, vomiting Doxycycline Hyclate Allergy Unknown severe Uncoded 12/05/22 11:20 thrush gluten Allergy Unknown (+) celiacs Uncoded 12/05/22 11:20 cipro AdvReac Unknown n/v Uncoded 12/05/22 11:20 sulfa AdvReac Unknown vomiting Uncoded 12/05/22 11:20 Home Medications ?Medication ?Instructions ?Recorded ?Confirmed ?Last Taken ?Type ascorbic acid (vitamin C) 500 mg 1 mg PO DAILY 06/26/21 10/07/22 Unknown History capsule aspirin 81 mg tablet,delayed 81 mg PO DAILY 06/26/21 10/07/22 Unknown History release (Adult Low Dose Aspirin) calcium carbonate 600 mg-vitamin 1 tab PO BID 06/26/21 10/07/22 Unknown History D3 10 mcg (400 unit) tablet (Calcium with Vitamin D) cholecalciferol (vitamin D3) 25 25 mcg PO DAILY 06/26/21 10/07/22 Unknown History mcg (1,000 unit) capsule docusate sodium 100 mg capsule 100 mg PO DAILY 06/26/21 10/07/22 Unknown History (Stool Softener) sfxlygfr-tlul-jhcw 8 mg-folic 400 1 tab PO DAILY 06/26/21 10/07/22 Unknown History mcg-K 50 mcg-lutein 300 mcg tablet (Centrum Silver Women) simethicone 125 mg capsule (Gas-X 125 mg PO BEDTIME PRN 06/26/21 10/07/22 Unknown History Extra Strength) torsemide 20 mg tablet 20 mg PO BID 06/26/21 10/07/22 Unknown History AREDS2 PO BID 09/26/22 10/07/22 Unknown History MAGNESIUM PO 09/26/22 10/07/22 Unknown History TUMERIC PO 09/26/22 10/07/22 Unknown History VITAMIN SUPER B COMPLEX PO 09/26/22 10/07/22 Unknown History albuterol sulfate 90 mcg/actuation 2 inh inhalation Q4-6H PRN 09/26/22 10/07/22 Unknown History breath activated powder inhaler (ProAir RespiClick) dicyclomine 10 mg capsule 10 mg PO BEDTIME PRN 09/26/22 10/07/22 Unknown History fluticasone propionate 50 2 spray intranasal DAILY PRN 09/26/22 10/07/22 Unknown History mcg/actuation nasal spray,suspension polyethylene glycol 3350 17 17 g PO DAILY 09/26/22 10/07/22 Unknown History gram/dose oral powder (Miralax) Exam Height,Weight and Vital Signs: Height 5 ft 6.5 in Weight 75.296 kg Airway Mallampati Class: II TM Dist: >3cm Neck ROM: Full Assessment and Plan Assessment Anesthesia Assessment: Anesthesia Plan Discussed and Chart Reviewed Final Anesthetic Review Family History of Problems with Anesthesia: No History of Problems with Anesthesia: No NPO: Yes ASA Class: III Final Preanesthetic Review: No Changes in Pt Med Stat, Meds/Allgs Chart Reviewed, Consent Obtained/Reviewed and Anes Risks/Benef Reviewed Patient Risk: Intermediate Procedure Risk: Low Anesthetic Plan Anesthetic Plan: TIVA Disposition: Standard PACU
[2023-09-25 15:41] VITALS: BP 126/49; PULSE 62; RESP 17; TEMP 36.7; O2SAT 97
--- NOTE | 2023-09-25 15:51 | P.BOP_ITS ---
Brief Operative Note Date of Service: 09/25/23 Pre-op diagnosis: GERD, Abdominal pain Post-op diagnosis: other (Large hiatal hernia, gastritis, gastric polyps) Procedure: EGD with biopsies Surgeon: Karson Reyes MD Anesthesia: MAC Was an Meteorological Engineer used for this Procedure?: No Estimated blood loss (mL): 2.0 Pathology: other (A. Descending duodenum B. Gastric antrum C. Gastric polyp) Condition: stable Disposition: PACU
[2023-09-25 15:56] VITALS: BP 133/55; PULSE 62; RESP 18; TEMP 36.7; O2SAT 98
--- NOTE | 2023-09-25 16:50 | OP_ITS ---
DATE OF SERVICE: 09/25/2023 SURGEON: Karson Reyes MD INDICATIONS: The patient presents for evaluation of abdominal pain, gastroesophageal reflux, and abnormal upper GI series. Full consent has been obtained from her for this, including risks of bleeding and perforation. PREOPERATIVE DIAGNOSIS: POSTOPERATIVE DIAGNOSIS: PROCEDURE PERFORMED: Esophagogastroduodenoscopy with biopsies. ESTIMATED BLOOD LOSS: COMPLICATIONS: ANESTHESIA: Monitored anesthesia care. ASSISTANTS: SPECIMENS: PREOPERATIVE DIAGNOSES: Abdominal pain, gastroesophageal reflux, abnormal upper gastrointestinal series. POSTOPERATIVE DIAGNOSES: Abdominal pain, gastroesophageal reflux, abnormal upper gastrointestinal series, large hiatal hernia, gastric polyps, antral gastritis, history of celiac disease. DESCRIPTION OF PROCEDURE: The patient was placed in the left lateral decubitus position. The Olympus video gastroscope was passed in the posterior oropharynx and upper esophagus under direct vision. The scope was passed slowly to the distal esophagus. The gastroesophageal junction was seen at 32 cm and appeared normal without any sign of esophagitis nor Villatoro's esophagus. The scope entered the stomach. There was a large hiatal hernia. The hiatal hernia mucosa appeared normal without mass or ulceration. The scope was advanced to the pylorus and the duodenum was cannulated to the descending portion. The duodenum including the bulb appeared normal without mass or ulceration. There was no gross evidence of active celiac disease. Multiple biopsies were obtained from the 2nd and 3rd portions of the duodenum. The scope was withdrawn back in the stomach. The gastric antrum had areas of some gastritis with erythema and edema, but no ulceration or erosions. There was good peristalsis. Multiple biopsies were obtained from the gastric antrum. The scope was retroflexed visualizing the proximal stomach carefully, which revealed the hiatal hernia and multiple gastric polyps, one of which was relatively large and about 1 cm. This appeared to be grossly hyperplastic. Biopsies were obtained from it. The scope was straightened and withdrawn back to the esophagus. The esophageal mucosa appeared normal. The scope was withdrawn from the patient. She tolerated the procedure well and was returned to the recovery area in stable condition. IMPRESSION: 1. Large hiatal hernia. 2. Antral gastritis. 3. Gastric polyps. 4. History of celiac disease. PLAN: The results of the biopsies will be checked. She will continue on her gluten- free diet as she does report that is definitely helping her feel better in regard to the previous history of celiac disease. She has been using her omeprazole 20 mg twice a day recently and definitely feels better on that in regard to less abdominal pain and reflux. I have advised her to continue that for at least 1 month and then she could try switching back to once a day, but she may need to stay on it a twice a day long-term. If H pylori happens to be present in the gastric biopsies, we could consider treating that. She was advised to see me in followup. She was advised to avoid all aspirin and NSAIDs long-term. She was advised to resume her Eliquis in 48 hours. This has been discussed with her . MD ARNIE Shabazz/ANYI / [id number] MTDD
== END 2023-09-25 16:05 | disposition home or self-care (01) ==
PROVIDERS: PCP Internal Medicine; Visit Provider Internal Medicine
PROC: 0DJ08ZZ Inspection of Upper Intestinal Tract, Via Natural or Artificial Opening Endoscopic (ICD-10-PCS; CPT 43235; principal; 2023-09-25 15:10)
DX: R10.13 Epigastric pain (principal); R93.3 Abnormal findings on diagnostic imaging of other parts of digestive tract; K44.9 Diaphragmatic hernia without obstruction or gangrene; K21.9 Gastro-esophageal reflux disease without esophagitis; K31.7 Polyp of stomach and duodenum; K29.60 Other gastritis without bleeding; I48.91 Unspecified atrial fibrillation; I12.9 Hypertensive chronic kidney disease with stage 1 through stage 4 chronic kidney disease, or unspecified chronic kidney disease; N18.31 Chronic kidney disease, stage 3a; Z79.01 Long term (current) use of anticoagulants; Z79.82 Long term (current) use of aspirin; Z79.899 Other long term (current) drug therapy
CPT/HCPCS: 43239; 88305; 88313; 88342; J2704

== ENCOUNTER 2024-02-19 10:08 | Outpatient (REF) | payer MEDICARE, SELFPAY ==
[2024-02-19 11:30] LABS: Anion Gap 14 (12-20); Blood Urea Nitrogen 30 mg/dL (9-16); Calcium 9.4 mg/dL (8.4-10.2); Carbon Dioxide 32 mmol/L (22-29); Chloride 100 mmol/L (96-108); Estimated Glomerular Filt Rate > 60; Glucose Random 109 mg/dL (60-115); Magnesium 2.3 mg/dL (1.6-2.6); Potassium 3.7 mmol/L (3.3-5.1); Sodium 142 mmol/L (135-145)
== END 2024-02-19 10:09 | disposition home or self-care (01) ==
LOC: HO.10HDL 10:08
PROVIDERS: Visit Provider Internal Medicine
DX: I48.0 Paroxysmal atrial fibrillation (principal); I10 Essential (primary) hypertension
CPT/HCPCS: 36415; 80048; 83735

== ENCOUNTER 2024-05-31 06:15 | Outpatient (REF) | payer MEDICARE, SELFPAY ==
--- OUTSIDE RECORDS SUMMARY | 2024-05-31 06:18 | XMS_ITS | Patient Health Record ---
Author Organization [facility] Address [address] [place] [address] Care Team Providers Care Psychiatric Technician Assistant Name Role Phone Kris Day MD Primary Care Provider Bella Jones Unavailable [phone] ALLERGIES Allergen (clinical drug ingredient) Drug/Non Drug Allergy documented on EMR Reaction Allergy Type Onset Date Status Sulfa Unknown Drug Allergy Active ciprofloxacin Cipro Unknown Drug Allergy Act ciera Substance with 7-jbbenhv-4-methylglutar yl-coenzyme A reductase inhibitor mechanism of action (substance) statins (uncoded) Unknown Allergy Acti ve RESULTS Component Value Reference Range Notes Pathology Reviewed date:10/11/2023 09:18:33 PM Interpretation: Performing Lab:[facility], [address] [place] [id number] Notes/Report: REASON FOR REFERRAL No Information MEDICATIONS Medication SIG (Take, Route, Frequency, Duration) Notes Start Date End Date Status Vitamin B Complex 1 1 Orally qd Active Multi Vitamin/Minerals 1 1 Orally qd Active Calcium 1 tab Oral for 14 days Active Gas-X 80 MG 1 tablet after meals and at bedtime as needed Orally once a day Active Vitamin C 500 MG 1 tablet Orally Once a day Active Aspir-81 81 MG 1 tablet Orally Once a day Active Dicyclomine HCl 10 MG TAKE 1-2 CAPSULES BY MOUTH EVERY 6 HOURS NEEDED FOR ABDOMINAL CRAMPS/DISCOMFORT 30 for 90 Active MiraLax Active Omeprazole 20 MG 1 tablet Orally Once a day Active Vitamin D 1000 UNIT 1 tablet Orally Once a day Active ProAir RespiClick Ac tive Ezetimibe 10 MG 1 tablet Orally Once a day for 30 day(s) Active Eliquis 5 MG as directed Orally t wice a day Active Magnesium 400 MG as directed Orally Active Oscal 500/200 D-3 500-200 MG-UNIT 1 tablet Orally Twice a day for 30 day(s) Active Turmeric 500 MG as directed Orally Active PreserVision AREDS 2 - as directed Orally Active Torsemide 20 MG as directed Orally Active [employer] Stool Softener 8.6-50 MG TAKE 2 TABLETS BY MOUTH DAILY AT BEDTIME Oral for 15 Active IMMUNIZATIONS Vaccine Route Administration Date Status Comme nts Flu vaccine no Preserv 3 and > Unknown 03/22/2014 Admin istered Influenza Unknown 02/07/2019 Administered Influenza Unknown 01/08/2020 Administered Influenza Unknown 02/25/2023 Administered SOCIAL HISTORY Sex Assigned At : Social History Observation Description Sex Assigned At Unknown Alcohol Screen Question Answer Notes Did you have a drink containing alcohol in the p ast year? No Points 0 Interpretation Negative PROBLEMS Problem Type ICD Code Onset Dates Problem Status W/U Status Risk SNOMED Code Notes Problem Epigastric abdominal pain (R10.13) Active confirmed 28866052 Problem Epigastric pain (R10.13) Active confirmed Epigastric pain (02460242) Problem Gastro-esophagea l reflux disease without esophagitis (K21.9) Active confirmed Gastro-esophage al reflux disease without esophagitis (282108334) Problem Abdominal bloating (R14.0) Active confirmed 744608871 Problem Change in bowel habits (R19.4) Active confirmed 782604491 Problem Unspecified chronic gastritis without bleeding (K29.50) Active confirmed Atrophic gastritis (81991010) Problem Polyp of stomach and duodenum (K31.7) Active confirmed Benign neoplasm of stomach (00543098) Problem Celiac disease (K90.0) Active confirmed 765328648 Problem Hiatal hernia (K44.9) Active confirmed 75115467 Problem Constipation, unspecified constipation type (K59.00) Active confirmed 37138216 Problem Abnormal barium swallow (R93.3) Active confirmed Barium swall ow abnormal (043870645) Problem Abdominal distention (R14.0) Active confirmed 35494507 VITAL SIGNS Temperature 96.8 degrees Fahrenheit 09/19/2023 Blood pressure diastolic 00 mm Hg 09/19/2023 Height 66 in 09/19/2023 Blood pressure systolic 000 mm Hg 09/19/2023 Weight 162 lbs 09/19/2023 BMI 26.14 kg/m2 09/19/2023 Encounters Encounter Location Date Provider Diagnosis [facility] [address] [place] [phone] 09/25/2023 Bella Eric Hiatal hernia K44.9 ; Unspecified chronic gastritis without bleeding K29.50 ; Polyp of stomach and duodenum K31.7 ; Gastro-esophageal reflux disease without esophagitis K21.9 ; Abnormal CT scan, esophagus R93.3 and Abdominal pain R10.9 [facility] [address] [place] [phone] 09/19/2023 Bella Reyes Epigastric pain R10.13 ; Hiatal hernia K44.9 and Abnormal barium swallow R93.3 [facility] [address] [place] [phone] 08/29/2023 Bella Reyes [facility] [address] [phone] 09/23/2023 Bella Reyes [facility] [address] [place] [phone] 09/24/2023 Bella Reyes [facility] [address] [place] [phone] 09/26/2023 Bella Reyes ASSESSMENTS Encounter Date Diagnosis Assessment Notes Treatment Notes Treatment Clinical Notes 09/25/2023 Unspecified chronic gastritis without bleeding (ICD-10 - K29.50) 09/25/2023 Hiatal hernia (ICD-10 - K44.9) 09/19/2023 Epigastric pain (ICD-10 - R10.13) Stop Eliquis for 3 days before the endoscopy and speak with Dr. Rodriguez about that. Do not take aspirin on the morning of the endoscopy. 09/19/2023 Hiatal hernia (ICD-10 - K44.9) 09/25/2023 Polyp of stomach and duodenum (ICD-10 - K31.7) 09/19/2023 Abnormal barium swallow (ICD-10 - R93.3) 09/25/2023 Gastro-esophageal reflux disease without esophagitis (ICD-10 - K21.9) 09/25/[address] scan, esophagus (ICD-10 - R93.3) 09/25/2023 Abdominal pain (ICD-10 - R10.9) PLAN OF TREATMENT Future Test Test Name Order Date UPPER GI ENDOSCOPY 02/09/2015 UPPER GI ENDOSCOPY 02/01/2020 UPPER GI ENDOSCOPY 09/19/2023 Insurance Providers Payer Name Payer Address Payer Phone Subscriber Number Group Number Insured Name Patient Relationship to Insured Coverage Start Date Coverage End Date [employer] Medicare Adv (PPO) [address] [address] [place] [address] [id number] CRYSTAL MOCTEZUMA Self - patient is the insured MEDICAL (GENERAL) HISTORY Medical History History ICD Code Colonoscopy and EGD 8--colon was negative, upper had a moderate-sized HH--no significant esophagitis 1 Small tubular adenoma removed in 2004 Supraventriclar tachycardia treated with ablation and medication--not successful----scheduled for another ablation on 02/21/[address] Rodriguez at [facility] Breast cancer treated with lumpectomy, X RT, and Tamoxifen Denies IL,DM,CVA,Lung disease,renal dise ase Duodenal ulcer in the HTN Hyperlipidemia Neg. colonoscopy in 05/2014 Afib Celiac disease based on duodenal bx and labs in 2014--on a gluten-free diet Thyroid nodules--s/p biopsy with Dr. Natalya moore EGD in 2014 with a finding o f the celiac disease and moderate-size hiatal hernia. There was no evidence of any esophagitis nor Villatoro's esophagus. Kidney disease stage 3A Ablation and pacemaker in 2020-Dr. Rodriguez Surgical History Surgery Date(Month/Year) Breast cancer--Right breast lumpectomy-malignant--chemo--sDr. Lorenzo Hawley Right colectomy in 1995 for a volvulus - Dr. Lorenzo Hawley Cleft palate surgery - [address] 1976 Cholecystectomy Umbilical hernia repair resulting in int estine resection 2016 Toe surgery Lens implant left and right 06/2004 Abdominal wall hernia repair - Dr. Alaina christiansen In 2015 she underwent a diag nostic laparoscopy with enterolysis and repair of a small bowel perforation and with a small bowel resection with Dr. Ortiz Bladder suspension 2001 Cleft palate Redo 1984 Hospitalization History Reason Date(Month/Year)
--- OUTSIDE RECORDS SUMMARY | 2024-05-31 06:18 | XMS_ITS | Patient Health Record ---
Author Organization [facility] Address [address] [place] [address] Care Team Providers Care Pediatric Cardiologist Name Role Phone Kris Day MD Primary Care Provider Linwood Trinidad Unavailable [phone] Allergies Allergen (clinical drug ingredient) Drug/Non Drug Allergy documented on EMR Reaction Allergy Type Onset Date Status sulfamethoxazole / trimethoprim Bactrim vomiting Drug Allergy Active ciprofloxacin Cipro digestive system shut down Drug Allergy Active Gluten Gluten Unknown Allergy Active Reason For Referral No Information Medications Medication SIG (Take, Route, Frequency, Duration) Notes Start Date End Date Status Triamterene-HCTZ 37.5-25 MG 1 tablet in the morning Orally Once a day for 30 day(s) Not-Taking Gas Relief Active Furosemide 20 MG 1 tablet Orally Once a day 20mg in am 20 in pm everyday Not-Taking Combivent 18-103 MCG/ACT 2 puffs Inhalation Six times a day Not-Taking Alendronate Sodium 70 MG (Prior Auth#:[id number] ) Oral for 28 Not-Taking PreserVision AREDS 2 Active Physical Therapy . . . 2-3x/week for 3-4 weeks 06/28/2020 Not-Taking Metoprolol Succinate 50 MG 1 capsule Orally Once a day Not-Taking ProAir RespiClick Ac tive Night Splint AFO - L1930 as directed 05/24/2020 Not-Taking Magnesium 400 MG 1 capsule with a meal Orally Active Magnesium Not-Taking Torsemide Active Simvastatin 20 MG 1 tablet every evening Orally Once a day for 30 day(s) Not-Taking Calcium Active MiraLax Active Aspir-81 Active Omeprazole Active Vitamin B Complex daily Ac tive Dicyclomine HCl 10 MG 1 tablet Orally Active Vitamin C daily Active Centrum Silver Activ e Oscal 500/200 D-3 Ac tive Aciphex 20mg daily Not-Jason ing Ezetimibe 10 MG 1 tablet Oral Once a day Active Aspirin 81mg daily Not-Jason ing Vitamin D daily Active Eliquis 5 MG Orally twice a day Active Walking Boot/Pneumatic As directed Wear Daily for Until further notice Not-Taking Flonase 50 MCG/ACT 2 sprays Nasally Once a day for 30 day(s) Active Immunizations Vaccine Route Administration Date Status Comme nts COVID-19 Pfizer BioNTech Vaccine Unknown 02/07/2022 Administered 2020,2020 2020,2021 unsure dates Social History Tobacco Use: Social History Observation Description Date Details (start date - stop date) Former Smoker NA - NA Tobacco Use/Smoking Question Answer Notes Are you a: former smoker Additional Findings: Tobacco Non-User Current no n-smoker Alcohol Screen Question Answer Notes Did you have a drink containing alcohol in the p ast year? No Points 0 Interpretation Negative Tobacco use other than smoking: Question Answer Notes Are you an other tobacco user? No Problems Problem Type SNOMED Code ICD Code Onset Dates Problem Status W/U Status Risk Notes Problem Localized, primary osteoarthritis of the ankle and/or foot (733489945) Primary osteoarthrit is, left ankle and foot (M19.072) Active confirmed Problem Acquired hammer toe of left foot (9393268261462097) Other hammer toe(s) (acquired), left foot (M20.42) Active confirmed Vital Signs Blood pressure diastolic 64 mm Hg 02/18/2024 Height 5 ft 6 in in 02/18/2024 Blood pressure systolic 122 mm Hg 02/18/2024 Weight 158 lbs 02/18/2024 BMI 25.50 kg/m2 02/18/2024 Encounters Encounter Location Date Provider Diagnosis [facility] [place] [address] [place] [address] 02/18/2024 Linwood Dhaliwal Ingrowing nail L60.0 ; Tinea unguium B35.1 ; Pain in right toe(s) M79.674 ; Other hammer toe(s) (acquired), left foot M20.42 and Metatarsalgia, left foot M77.42 Assessments Encounter Date Diagnosis (ICD Code) Assessment Notes Treatment Notes Treatment Clinical Notes Section Notes 02/18/2024 Ingrowing nail (ICD-10 - L60.0) 02/18/2024 Tinea unguium (ICD-10 - B35.1) 02/18/2024 Pain in right toe(s) (ICD-10 - M79.674) 02/18/2024 Other hammer toe(s) (acquired), left foot (ICD-10 - M20.42) 02/18/2024 Metatarsalgia, left foot (ICD-10 - M77.42) Plan Of Treatment Pending Test Test Name Order Date X ray : Foot, right 2V 12/04/2011 X ray : Foot, right 2V 12/12/2011 X ray : Foot, right 2V 12/19/2011 X ray : Foot, right 2V 01/08/2012 X ray : Foot, left 3V 05/24/2020 X ray : Foot, left 3V 05/06/2022 53086-Qabsuqlb Plate 05/21/2018 85862-Thlhumfk Plate 01/06/2014 08408-Bbtvptls Plate 12/12/2015 73506- Debride <25 sq cm 12/27/2015 09654- Debride <25 sq cm 01/20/2014 70721- Debride <25 sq cm 01/08/2012 04950- Debride <25 sq cm 03/23/2012 44242- Debride <25 sq cm 12/13/2011 04839- Debride <25 sq cm 12/19/2011 68835- Debride <25 sq cm 12/12/2011 57546- Debride <25 sq cm 07/08/2011 68979- Debride <25 sq cm 09/16/2011 68809- Debride <25 sq cm 11/11/2011 90065- Debride <25 sq cm 12/04/2011 89681-FFCXIHDF OF HEMATOMA/FLUID 019 77574,X1757-VBP TENDON SHEATH/LIGAMENT 0 08/09/2020 44925, J0702- Neuroma/Injection 08/10/19 21 19869- Nail Unit Biopsy 01/07/2018 Insurance Providers Payer Name Payer Address Payer Phone Subscriber Number Group Number Insured Name Patient Relationship to Insured Coverage Start Date Coverage End Date [employer] Medicare [id number] [address] [address] [place] [address] [id number] Ginette Champion Self - patient is the insured Medical (General) History Medical History History ICD Code thyroid disorder mumps measles chicken pox cancer back, hip, knee pain Arthritis celiac disease Surgical History Surgery Date(Month/Year) breast tumor removal 1997 cholecystectomy 1985 colon resection 1985 hysterectomy 1979 lens implant OD, OS 2004 hammer toe 2011 heart surgery unspecified Cardio Version 02/2020,04/2020 Hospitalization History Reason Date(Month/Year) [facility] [place] for [facility] Heart Procedure 04/2015 [facility] [place] for perforated bowel 12 days 03/2016-04/2016
--- OUTSIDE RECORDS SUMMARY | 2024-05-31 06:18 | XMS_ITS ---
[facility] Address [address] [place] [address] Care Team Providers Care Systems Mechanic Name Role Phone Kris Day MD Primary Care Provider Linwood Trinidad Unavailable [phone] Allergies Allergen (clinical drug ingredient) Drug/Non Drug Allergy documented on EMR Reaction Allergy Type Onset Date Status sulfamethoxazole / trimethoprim Bactrim vomiting Drug Allergy Active ciprofloxacin Cipro digestive system shut down Drug Allergy Active Gluten Gluten Unknown Allergy Active REASON FOR VISIT Last Visit PCP 09/05/2022 Medications Medication SIG (Take, Route, Frequency, Duration) Notes Start Date End Date Status Alendronate Sodium 70 MG (Prior Auth#:[id number] ) Oral for 28 Not-Taking Physical Therapy . . . 2-3x/week for 3-4 weeks 06/28/2020 Not-Taking Night Splint AFO - L1930 as directed 05/24/2020 Not-Taking Magnesium Not-Taking Simvastatin 20 MG 1 tablet every evening Orally Once a day for 30 day(s) Not-Taking Metoprolol Succinate 50 MG 1 capsule Orally Once a day Not-Taking Aspirin 81mg daily Not-Jason ing Triamterene-HCTZ 37.5-25 MG 1 tablet in the morning Orally Once a day for 30 day(s) Not-Taking Furosemide 20 MG 1 tablet Orally Once a day 20mg in am 20 in pm everyday Not-Taking Combivent 18-103 MCG/ACT 2 puffs Inhalation Six times a day Not-Taking Vitamin B Complex daily Ac tive Vitamin C daily Active Aciphex 20mg daily Not-Jason ing Vitamin D daily Active Walking Boot/Pneumatic As directed Wear Daily for Until further notice Not-Taking Oscal 500/200 D-3 Ac tive Magnesium 400 MG 1 capsule with a meal Orally Active Torsemide Active MiraLax Active Omeprazole Active PreserVision AREDS 2 Active ProAir RespiClick Ac tive Ezetimibe 10 MG 1 tablet Oral Once a day Active Flonase 50 MCG/ACT 2 sprays Nasally Once a day for 30 day(s) Active Gas Relief Active Dicyclomine HCl 10 MG 1 tablet Orally Active Centrum Silver Activ e Eliquis 5 MG Orally twice a day Active Calcium Active Aspir-81 Active Social History Tobacco Use: Social History Observation [...] Are you an other tobacco user? No Vital Signs Height 5 ft 6 in in 02/18/2024 Weight 158 lbs 02/18/2024 BMI 25.50 kg/m2 02/18/2024 Blood pressure systolic 122 mm Hg 02/18/20 24 Blood pressure diastolic 64 mm Hg 024 Encounters Encounter Location Date Provider Diagnosis [facility] [address] [address] 02/18/2024 Linwood Dhaliwal Ingrowing nail L60.0 ; [...] foot (ICD-10 - M77.42) Plan Of Treatment Next Appt Details Follow Up: prn, Reason: Progress Notes * Ginette CHAMPION MDOB:[birth year] (83 yo F)Acc No.[id number]:02/18/2024 Progress Note Patient:Ginette Yu Provider:?Linwood Dhaliwal DPM :1940???Age:83 Y???Sex:Female D ate:02/18/2024 Address:[address] [place] Pcp:Kris Day MD Subjective: * Chief Complaints: * ???Last Visit PCP 09/05/2022 * HPI: ???Skin problems:?Nature:?discolored.?Location:?B/L , [facility].?Duration:?several years.?Onset/Cause:?unknown.?Course:?improved.?Aggravated by:?any pressure.?Treatments:?self care, Topical antifungal--using vicks once daily--she hasn't been using the vinegar tx as rx.?Severity/Quality:?mild.? * ROS:?General/Constitutional:?Nausea?denies.?Vomiting?denies.?Hunger Thirst?denies.?Loss appetite?denies.?Chills?denies.?Fatigue?denies.?Fever?denies.?Night Sweats?denies.?Unexplained weight loss?denies.?Unexplained weight gain?denies.?HEENTM:?Dentures?denies.?Dizziness?denies.?Glasses/contacts?denies.?Retinopathy?de nies.?Blurred/double vision?denies.?TMJ?denies.?Discharge/drainage?denies.?Implants?denies.?Sore throat?denies.?Dental implants?denies.?Hard of hearing ?denies.?Difficulty chewing/swallowing/speaking?denies.?Nose bleeds?denies.?Sore mouth?denies.?Respiratory:?On Oxygen?denies.?Pneumonia/pleurisy?denies.?Bronchitis?denies.?Emphysema?denies.?C oughing?denies.?Cough blood?denies.?Shortness of breath?denies.?Wheezing?denies.?Cardiovascular:?Pacemaker?denies.?MVP?denies.?WPW?denies.?CHF?denies.?Heart attack?denies.?Septal defect?denies.?Rapid beat?denies.?Chest pain ?denies.?Atrial Fib.?denies.?Murmur/Palpitations?denies.?Gastrointestinal:?Hemorrhoids?denies.?Stomach/Abdominal pain?denies.?Dark blood stool?denies.?Irritable bowel ?denies.?Constipation?denies.?Diarrhea?denies.?Hematology:?Swelling?denies.?Clots?denies.?Varicose Veins?denies.?Bruising?denies.?Bleeding problem?denies.?Genitourinary:?Blood urine?denies.?Frequent/Painfu/urination/bladder control?denies.?Kidney stones?denies.?Infection (UTI)?denies.?Nephropathy?denies.?sex trans dis (STD)?denies.?Prostate?denies.?Musculoskeletal:?Hammertoes?denies.?Bunions?denies.?Back Pain?denies.?Muscle Cramps/ Resting?denies.?Muscle cramps / walking?denies.?Generalized aches and pains?denies.?Weakness?denies.?Integ.:?Gray?denies.?Scars?denies.?Corns/calluses?denies.?Ingrown nails?denies.?Painful nails?denies.?Open Sores?denies.?Rashes?denies.?Neurologic:?Difficulty sleeping?denies.?Brain disorder?denies.?Numbness?denies.?Balance trouble?denies.?Confusion?denies.?Fainting/blackouts?denies.?Tingling?denies.?Tr emors?denies.? * Medical History:? * Surgical History:?breast eladia or removal 1997cholecystectomy 1986colon resection 1986hysterectomy 1980lens implant OD, OS 2005hammer toe 2012heart surgery unspecified Cardio Version 02/2020,04/2020 * [place]/Major Diagno stic [place] [place] [place] for perforated bowel 12 days 03/2016-04/2016 * Family History:?Mother: dece ased, diagnosed with Family history of arthritis, Diabetic - NIDDM, Unspecified cerebral artery occlusion with cerebral infarction, Other malignant neoplasm of unspecified site. Father: , foot problems, diagnosed with Diabetic - NIDDM, Unspecified cerebral artery occlusion with cerebral infarction.?Spouse: .? * Social History:?Tobacco Use:?Tobacco Use/Smoking?Are you a:?former smoker ?Additional Findings: Tobacco Non-User?Current non-smoker ?Tobacco use other than smoking?Are you an other tobacco user??No ???Drugs/Alcohol:?Drugs?Have you used drugs other than those for medical reasons in the past 12 months??No ?Alcohol Screen?Did you have a drink containing alcohol in the past year??No ?Points?0 ?Interpretation?Negative ???Miscellaneous:?Caffeine: yes, frequency:, 1-2 cups per day. ?Children: yes. ?Exercise: yes. ?Marital status: . 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 * Medications:?TakingAspir-81 Calcium Centrum Silver Dicyclomine HCl 10 MG Capsule 1 tablet Orally Eliquis 5 MG Tablet Orally twice a dayEzetimibe 10 MG Tablet 1 tablet Oral Once a dayFlonase 50 MCG/ACT Suspension 2 sprays Nasally Once a dayGas Relief ProAir RespiClick PreserVision AREDS 2 Torsemide Magnesium 400 MG Tablet 1 capsule with a meal Orally MiraLax Omeprazole Oscal 500/200 D-3 Vitamin B Complex dailyVitamin C dailyVitamin D dailyTaking Aspir-81 Taking Calcium Taking Centrum Silver Taking Dicyclomine HCl 10 MG Capsule 1 tablet Orally Taking Eliquis 5 MG Tablet Orally twice a dayTaking Ezetimibe 10 MG Tablet 1 tablet Oral Once a dayTaking Flonase 50 MCG/ACT Suspension 2 sprays Nasally Once a dayTaking Gas Relief Taking ProAir RespiClick Taking PreserVision AREDS 2 Taking Torsemide Taking Magnesium 400 MG Tablet 1 capsule with a meal Orally Taking MiraLax Taking Omeprazole Taking Oscal 500/200 D-3 Taking Vitamin B Complex dailyTaking Vitamin C dailyTaking Vitamin D dailyNot-Taking/PRNWalking Boot/Pneumatic As directed Wear DailyAciphex 20mg dailyAspirin 81mg dailyCombivent 18-103 MCG/ACT Aerosol 2 puffs Inhalation Six times a dayTriamterene-HCTZ 37.5-25 MG Tablet 1 tablet in the morning Orally Once a dayFurosemide 20 MG Tablet 1 tablet Orally Once a day, Notes: 20mg in am 20 in pm everydayMetoprolol Succinate 50 MG Capsule ER 24 Hour Sprinkle 1 capsule Orally Once a dayNight Splint AFO - L1930 as directed Alendronate Sodium 70 MG Tablet (Prior Auth#:[id number]) Oral Physical Therapy . . . . 2-3x/weekMagnesium Simvastatin 20 MG Tablet 1 tablet every evening Orally Once a dayMedication List reviewed and reconciled with the patientNot-Taking/PRN Walking Boot/Pneumatic As directed Wear DailyNot-Taking/PRN Aciphex 20mg dailyNot-Taking/PRN Aspirin 81mg dailyNot- Taking/PRN Combivent 18-103 MCG/ACT Aerosol 2 puffs Inhalation Six times a dayNot- Taking/PRN Triamterene-HCTZ 37.5-25 MG Tablet 1 tablet in the morning Orally Once a dayNot-Taking/PRN Furosemide 20 MG Tablet 1 tablet Orally Once a day, Notes: 20mg in am 20 in pm everydayNot-Taking/PRN Metoprolol Succinate 50 MG Capsule ER 24 Hour Sprinkle 1 capsule Orally Once a dayNot-Taking/PRN Night Splint AFO - L1930 as directed Not-Taking/PRN Alendronate Sodium 70 MG Tablet (Prior Auth#:[id number]) Oral Not-Taking/PRN Physical Therapy . . . . 2-3x/weekNot-Taking/PRN Magnesium Not-Taking/PRN Simvastatin 20 MG Tablet 1 tablet every evening Orally Once a dayMedication List reviewed and reconciled with the patient * Allergies:?Cipro: digestive system shut downBactrim: vomitingGlutenyes[Allergies Verified] Objective: * Vitals:?Ht: 5 ft 6 in, Wt:15 8, BMI:25.50, Shoe size:10, BP:122/64 mm Hg. * Examination: ???General Examination: ?GENERAL APPEARANCE:?pleasant, alert, well nourished, well developed, well hydrated, with good attention to hygene/body habitus, and in no acute distress.?ORIENTED:?person,place, and time.?Neurological: ?SENSORY:?Neurological exam reveals intact sensorium, pain sensation normal, vibration sensation intact, pinprick sensation is normal in the lower extremities, Pt denies, anesthesia, burning, paresthesia, tingling, B/L.?Vascular: ?DP PULSES:?2/4, B/L.?PT PULSES:?2/4, B/L.?CAPILLARY FILL TIME:?3 secs. per digit. B/L.?SKIN TEMPERTURE GRADIENT OF THE LOWER EXTERMITIES:?normal, B/L.?HAIR GROWTH/TEXTURE/ELASTICITY/TURGOR:?normal, B/L.?PIGMENTATION:?normal, B/L.?EDEMA:?absent, B/L.?TELANGECTASIA:?absent, B/L.?Dermatologic: ?SKIN FINDINGS:?Skin shows sign(s) of subungual black pigmented skin lesion distal lateral of left hallux nail plate.?Orthopedic: ?MUSCLE STRENGTH:?5/5 all groups in a symmetrical fashion , B/L.?Nails: ?NAILS are:?Elongated, overgrown, dystrophic, lytic, greater than 3mm thick, discolored and friable with crumbly malodorous subungual debris, with pain on palpation, TA--lateral , proximal clearing of nail __60__ %, T5-lateral , proximal clearing of nail __50__ %.?Ingrown Nail: ?INSPECTION:? Reveals nail incurvation, dull pain on palpation due to neuropathy, groove hypertrophy, Lateral nail border, T5, TA.?Heel Pain: ?INSPECTION:? Pain on Palpation to Plantar Fascia med. and central bands, intrinsic musc., infracalcaneal bursa, and med calc tubercle , LEFT foot--most acute pop Pl-central and pl-post left heel.? Assessment: * Assessment: 1.?Ingrowing nail - L60.0?2. ?Tinea unguium - B35.1 (Primary)?3.?Pain in right toe(s) - M79.674?4.?Other hammer toe(s) (acquired), left foot - M20.42?5.?Metatarsalgia, left foot - M77.42? Plan: * Treatment: * Procedure Codes:? * Preventive Medicine:? ??Counseling:?Discussion:?-13: Office or other outpatient visit for the evaluation and management of an established patient, which required a medically appropriate history and/or examination and LOW level of DECISION MAKING for: 2+ MINOR PROBLEMS, 1 STABLE CHRONIC PROBLEM, OR 1 STABLE ACUTE UNCOMPLICATED PROBLEM THAT POSE(S) A LOW RISK FOR MORBIDITY/MORTALITY. When using time for code selection, 20-29 min of total time was spent on the day of the encounter interpreting the data and educating the patient as to the nature of their condition, treatment options available according to their individual PMH, meds, allergies, and overall health/living conditions, as well as any potential risks or complications that may occur from a failure to adhere to, and participate in, the recommended course of therapy. The discussion included a complete verbal, and/or written explanation of the examination results, any x-rays taken, the proposed diagnosis, and outline of the treatment plan. A schedule for future care needs was also explained. The patient verbalized an understanding of the instructions at this time and agreed to be an active participant in their treatment. If the patient should think of any questions or concerns after the visit, I have encouraged the patient to call the office.?Fungal Nail Counseling:?The Pt. was counseled on the diagnosis, potential etiologies (including, but not limited to, environmental factors, genetic, immune deficiency), and the multiple treatment options for Onychomycosis. We discussed the risks and benefits of each option from performing no treatment, to ultraviolet light shoe treatment, to laser nail treatment, to applying topical antifungals, to taking oral antifungal medication, to surgical removal of the involved nail(s) with or without performing a matricectomy, or any combination thereof. We discussed the advantages and disadvantages of each of possible treatment and importance for adherence to all the recommended therapies for optimum success. This includes the necessity for weekly emery board self nail home debridements, and control the nail and skin environment as much as possible by only using a fresh, dry pair of shoes/socks each day, as well as keeping the skin as dry as possible through the use of sprays/powders if necessary. Pt was instructed to discard the justin board after use to prevent reinfectoin of the involved nail(s). We discussed the mycological and visual clinical effectiveness of topical vs oral antifungal treatments as well as each ones potential side effects and/or any patient-specific medication interactions. We discussed the reasons behind the important requirement of regular liver function testing with oral antifungal therapy for safety. Patient questions re: use, dosage, successful outcomes, blood tests, and possible pharmacutical interactions were reviewed and the patient verbalized that all answers were clearly understood, The Pt prefers topical treatment.? * Follow Up:?prn * Images: * Sign off status: Completed true * Provider:Emily Dhaliwal DPM Date:? 024 Generated for Cassidyi young/Yandy/eTrantacoitting on:?05/31/2024 06:17 AM EST History and Physical Notes * HPI (History of Present Illness) Category Sub-Category Detail Notes Category Not es Skin problems Nature: discolored Location: B/L , 1st Duration: several years Onset/Cause: unknown Course: improved Aggravated by: any pressure Treatments: self care, Topical a ntifungal--using vicks once daily--she hasn't been using the vinegar tx as rx Severity/Quality: mild Examination Category Sub-Category Detail Notes Category Not es Ingrown Nail INSPECTION: Reveals nail inc urvation, dull pain on palpation due to neuropathy, groove hypertrophy, Lateral nail border, T5, TA Neurological SENSORY: Neurological exa m reveals intact sensorium, pain sensation normal, vibration sensation intact, pinprick sensation is normal in the lower extremities, Pt denies, anesthesia, burning, paresthesia, tingling, B/L Dermatologic SKIN FINDINGS: Skin shows sign( s) of subungual black pigmented skin lesion distal lateral of left hallux nail plate Orthopedic MUSCLE STRENGTH: 5/5 all groups in a symmetrical fashion , B/L General Examination GENERAL APPEARANCE: pleasant , alert, well nourished, well developed, well hydrated, with good attention to hygene/body habitus, and in no acute distress ORIENTED: person,place, and ti me Vascular DP PULSES (B): 2/4, B/L PT PULSES (B): 2/4, B/L CAPILLARY FILL TIME: 3 secs. per digit. B/L TEMPERTURE GRADIENT (C): normal, B/L TROPHIC CONDITION-TEXTURE/ELASTICITY/TUR GOR/HAIR GROWTH (B): normal, B/L EDEMA (C): absent, B/L TELANGECTASIA: absent, B/L PIGMENTATION: normal, B/L Nails NAILS are: Elongated, overg rown, dystrophic, lytic, greater than 3mm thick, discolored and friable with crumbly malodorous subungual debris, with pain on palpation, TA--lateral , proximal clearing of nail __60__ %, T5-lateral , proximal clearing of nail __50__ % Heel Pain INSPECTION: Pain on Palpatio n to Plantar Fascia med. and central bands, intrinsic musc., infracalcaneal bursa, and med calc tubercle , LEFT foot--most acute pop Pl-central and pl-post left heel
--- OUTSIDE RECORDS SUMMARY | 2024-05-31 06:18 | XMS_ITS | Data Portability ---
Author Organization [place] [facility] [place] Address [address] [facility] [address] [place] [address] Care Team Providers Care Packing Checker Name Role Phone LUDIN RÍOS Primary Care Provider Assessment Encounter Date Assessment Date Assessment LastModified by Organization Details LastModified Time 11/11/2022 11/11/2022 82-year-old female presents with complaint of right hip and left knee pain exam and x-rays are consistent with osteoarthritis of left knee and greater trochanteric bursitis of right hip with this. After discussion regarding treatment options she wishes to proceed with cortisone injection into the right hip first please see the attached procedure note. Arrangements will be made for follow-up in a week or 2 at which time we could inject the left knee with cortisone. Not available 11/11/2022 09:17:01 11/25/2022 11/25/2022 82-year-old female with left knee pain consistent with osteoarthritis. She wishes to proceed with a cortisone injection today. She failed to improve from a cortisone injection to the bursa of the right hip. She understands that she could benefit from a course of physical therapy for the right hip. Recommended follow-up in 1 month to assess both areas. Not available 11/25/2022 10:35:53 12/23/2022 12/23/2022 82-year-old female presenting for recheck of right hip and left knee pain. Left knee feels pain-free following a recent cortisone injection. Right hip is persistently painful consistent with IT band friction syndrome and greater trochanteric bursitis. After discussion regarding treatment options she is added an order for physical therapy. Follow-up is as needed. Not available 12/23/2022 14:01:42 Plan of Treatment Reminders Order Date Submit Date Provider Last Modified By Organization Details Last Modified Time Details Appointments None record ed. Lab None record ed. Referral None record ed. Procedures None record ed. Surgeries None record ed. Imaging XR, knee, 4 or more view 023 11/12/19 23 [facility], [address], [place], [address], 3 10:09:48 Medication Orders None record ed. Patient TargetsNo targets recorded. Patient Instructions Encounter Date Encounter Id Patient Instructions Last Modified By Organization Details Last Modified Time 11/11/2022 [id number] X-rays show evidence of {{mild moderate se deepak*}} {{right left* bila teral}} {{hip knee*}} osteoarthritis. There is joint space narrowing, subchondral sclerosis and marginal osteophytosis. No evidence of acute fracture or osteolytic findings. There is a sizable calcification just anterior to the distal metaphysis of her femur. There is no adjacent periosteal reaction. There is no invasive or erosive appearance to any of the visualized osseous structures. Not available 11/11/2022 09:31:55 12/23/2022 [id number] physical therapy* [email or web address] Not availa ble 12/30/2022 08:29:03 Reason for Referral None Reported. Problems Name Problem SNOMED Code Status Onset Date Resolution Date Notes Provider Name and Address Organization Details Recorded Time Pain of left knee joint 7640099997545 07 Active 2022 ERNST REMY PA-C [address], [place], [address], [place] [facility] 3 09:16:19 Trochanteri c bursitis of right hip 8709043682657 00 Active 2022 ERNST REMY PA-C [address], [place], [place], [address], [place] [facility] 3 09:16:22 Arthritis of left knee 2044583291596 104 Active 2022 ERNST REMY PA-C [address], [place], [address], [facility] 3 09:16:24 Problem Notes None recorded. Procedures Surgical History Date Name Laterality Status Provider Name and Address Organization Details Recorded Time 3 MJG Knee injection w/US completed ERNST REMY PA-C [address], [place], [address], [facility], P 11/25/2022 10:35:31 3 MJG GT injection completed ERNST REMY PA-C [address], [place], [address], [facility], P 11/11/2022 09:17:28 Imaging Results None recorded. Procedure Notes None recorded. Medical Equipment None Reported. Allergies Allergen ID Allergen Name Allergen Category Reaction Reaction Severity Criticality Documentation Date Start Date Code Code System Note Provider Name and Address Organization Details Recorded Time 4750 Substance with sulfonami de structure and antibacte rial mechanism of action (substanc e) medicatio n Not available Not available Not available 11/11/2022 27125 8003 SNOMED Lyle Swannnchard [facility], [facility], P 3 09:03:25 4751 Cipro medicatio n Not available Not available Not available 11/11/2022 06767 3 RxNorm Lyle Aguirre [facility], [facility], P 3 09:03:31 4752 wheat gluten extract food Not available Not available Not available 11/11/2022 00746 81 RxNorm Lyle Aguirre [facility], [facility], P 3 09:03:37 Medications Name Sig Start Date Stop Date Status Note LastModified by Organization Details LastModified Time fluconazole 100 mg tablet TAKE 1 TABLET BY MOUTH EVERY DAY active Not Available Not Available No t Available clotrimazole 10 mg av DISSOLVE 1 AV IN MOUTH 3 TIMES A DAY active Not Available Not Available Not Available promethazine -DM 6.25 mg-15 mg/5 mL oral syrup TAKE 5 ML (ORAL) EVERY 6 HOURS NEEDED FOR COUGH active Not Available Not Available No t Available neomycin-jonah ymyxin-hydro patrick 3.5 mg/mL-10,000 unit/mL-1 % ear solution INSTILL 5 DROPS INTO THE LEFT EAR 2 TIMES DAILY active Not Available Not Available No t Available torsemide 20 mg tablet TAKE 2 TABLETS BY MOUTH EVERY DAY active Not Available Not Available No t Available fluconazole 150 mg tablet TAKE 1 TABLET BY MOUTH EVERY DAY active Not Available Not Available No t Available clarithromyc in 500 mg tablet TAKE 1 TABLET (ORAL) EVERY 12 HOURS FOR 10 DAYS FOR INFECTION active Not Available Not Available No t Available meloxicam 15 mg tablet TAKE 1 TABLET BY MOUTH DAILY active Not Available Not Available Not Available prednisone 20 mg tablet TAKE 2 TABLETS EVERY DAY BY ORAL ROUTE IN THE MORNING FOR 4 DAYS. active Not Available Not Available Not Available fluorouracil 5 % topical cream APPLY TO AFFECTED AREA TWICE A DAY TO RED SCALY AREAS OF SUN DAMAGE ON NOSE MAY GET REDNESS CRUSTING active Not Available Not Available No t Available omeprazole 40 mg capsule,dwight yed release TAKE 1 CAPSULE BY MOUTH TWICE A DAY active Not Available Not Available No t Available omeprazole 20 mg capsule,wdight yed release TAKE 1 CAPSULE BY MOUTH EVERY DAY active Not Available Not Available No t Available allopurinol 300 mg tablet TAKE 1 TABLET BY MOUTH DAILY active Not Available Not Available Not Available cefdinir 300 mg capsule TAKE 1 CAPSULE BY MOUTH TWICE A DAY active Not Available Not Available No t Available doxycycline hyclate 100 mg tablet TAKE 1 TABLET BY MOUTH TWICE A DAY active Not Available Not Available No t Available dicyclomine 10 mg capsule TAKE 1-2 CAPSULES BY MOUTH EVERY 6 HOURS NEEDED FOR ABDOMINAL CRAMPS/DISC OMFORT 30 active Not Available Not Available No t Available amoxicillin 875 mg-potassium clavulanate 125 mg tablet TAKE 1 TABLET BY MOUTH TWICE A DAY WITH MEALS FOR 10 DAYS active Not Available Not Available No t Available tobramycin 0.3 %-dexamethas one 0.1 % eye drops,suspen sloane active Not Available Not Available Not Available neomycin 3.5 mg/g-polymyx in B 10,000 unit/g-dexam eth 0.1 % eye oint APPLY AN APPLICATION FUL TO THE AFFECTED LIDS AT BEDTIME active Not Available Not Available No t Available ezetimibe 10 mg tablet TAKE 1 TABLET BY MOUTH EVERY DAY active Not Available Not Available No t Available Eliquis 5 mg tablet TAKE 1 TABLET BY MOUTH TWICE A DAY active Not Available Not Available No t Available Paxlovid 300 mg (150 mg x 2)-100 mg tablets in a dose pack TAKE 3 TABLETS BY MOUTH TWICE A DAY FOR 5 DAYS active Not Available Not Available No t Available Vitals Date Recorded Body height Body mass index (BMI) Body weight Provider Name and Address Organization Details Last Updated DateTime 11/11/2022 172.72 cm 27.1 kg/m2 38722.44 g Lyle Aguirre [facility] 11/11/2022 09:03:44 Date Recorded Body height Body mass index (BMI) Body weight Provider Name and Address Organization Details Last Updated DateTime 11/25/2022 172.72 cm 27.1 kg/m2 81897.44 g Lyle Aguirre [facility], P 11/25/2022 10:22:15 Date Recorded Body height Body mass index (BMI) Body weight Provider Name and Address Organization Details Last Updated DateTime 12/23/2022 172.72 cm 27.1 kg/m2 42403.44 g Agatha Flor [facility] 12/23/2022 13:51:57 Social History Question Answer Notes LastModified by Organizat ion Details LastModified Time Tobacco Smoking Status Former Smoker Lyle hamilton, [facility], P 11/11/2022 09:04:02 What Is Your Level Of Alcohol Consumption? None [email or web address] Information not available 11/11/2022 When Did You Quit Smoking? 14+yearssin celastcigar ette [email or web address] Information not available 11/11/2022 Do You Use Any Illicit Or Recreational Drugs? No [email or web address] Information not available 11/11/2022 How Many Years Have You Smoked Tobacco? 20 [email or web address] Information not available 11/11/2022 Do You Or Have You Ever Used Any Other Forms Of Tobacco Or Nicotine? No [email or web address] Information not available 11/11/2022 Sex: Unknown Functional Status None recorded. Mental Status None recorded. Family History Relationship Description Onset Age of this Age Resolved Age Notes LastModified by Organization Details LastModified Time Mother Arthritis [email or web address] Not mimi rich 11/11/2022 09:04:43 Mother Diabetes mellitus [email or web address] Not available 10/2022 09:04:52 Mother Heart disease [email or web address] Not available 10/2022 09:05:03 Mother Hyperlipidem ia [email or web address] Not available 10/2022 09:05:12 Mother Hypertensive disorder [email or web address] Not available 10/2022 09:05:20 Father Diabetes mellitus [email or web address] Not available 10/2022 09:04:52 Father Heart disease [email or web address] Not available 10/2022 09:05:03 Medical History Condition Response Gout Y Heart Disease Y Cancer Y Reflux/GERD Y Gynecological HistoryNo gynecological history recorded. Obstetrics History GPAL:G 0 P 0 0 0 0 Past Encounters Encounter ID Performer Location Encounter Start Date Encounter Closed Date Diagnosis/Indication Diagnosis SNOMED-CT Code Diagnosis ICD10 Code [id number] Lyle Aguirre [facility] [address] [address] 11/11/2022 08:48:19 11/11/2022 09:40:18 Pain of left knee joint 1368850041 95263 M25.562 Trochanter ic bursitis of right hip 0364470036 86409 M70.61 Arthritis of left knee 8135540205 965792 M13.862 [id number] MD RADHA Barrios [facility] [address] [address] 11/25/2022 10:18:33 11/25/2022 10:58:21 Arthritis of left knee 5730069594 466928 M13.862 [id number] [facility] [address] [address] 12/23/2022 13:37:53 12/23/2022 14:15:30 Arthritis of left knee 5314703593 839610 M13.862 Trochanter ic bursitis of right hip 8118199830 19917 M70.61 Health Concerns Section Related Observation LastModified by Organization Detai ls LastModified Time None Recorded Concern Status LastModified by Organization Details LastModified Time None Recorded Advance Directives Directive None Recorded Payers Encounter Date Sequence Insurance Name Policy Number Policy Wong Covered Member ID Wong Member ID Guarantor Name 11/11/2022 1 [facility] (MEDICARE REPLACEMENT/A DVANTAGE - PPO) [id number] Ginette Champion [id number] Ginette Champion 11/25/2022 1 [facility] (MEDICARE REPLACEMENT/A DVANTAGE - PPO) [id number] Ginette Champion [id number] Ginette Champion 12/23/2022 1 [facility] (MEDICARE REPLACEMENT/A DVANTAGE - PPO) [id number] Ginette Champion [id number] Ginette Champion Notes Date Note Type Note Provider Name and Address Organization Details Recorded Time 11/11/2022 text/html 82-year-old yvon hernandez presents with 2 areas of complaint. The first and greatest pain in her right hip. She states that my bursa is hurting. She reports that a year ago she underwent a cortisone injection which was effective at controlling her pain up until approximately 2 months ago. There is no new injury accidents or trauma. She denies pain at the buttock or groin and down the leg. She also complains of progressively worsening pain and disability with regards to the left knee. She is known to have osteoarthritis of the left knee. She request cortisone injection to this area. She also recognizes some swelling at the joint. Lyle hamilton, [place] [facility] 11/19/2022 16:04:12 11/25/2022 text/html 82-year-old yvon hernandez presents with left knee pain. She reports that her cortisone injection to the bursa of the right hip was ineffective giving her relief of the pain and may have actually made it even more sensitive to direct pressure. She is known to have osteoarthritis of the left knee cortisone is helped in the past. She wishes to proceed with cortisone injection into the left knee today. Otherwise there is been no substantial change in character quality or location of her pain at right hip or left knee. ERNST REMY PA-C [address] [place] [address], [address], [place] [facility] 11/25/2022 10:36:39 12/23/2022 text/html 82-year-old yvon hernandez reports that the cortisone injection to the left knee was effective at alleviating all of her pain. She has persistent right hip pain with sensitivity to direct pressure. There is otherwise no change in character quality or location of her right hip symptoms. ERNST REMY PA-C [address] [facility] [address], [place], [address], [place] [facility] 12/23/2022 14:02:47 OBGyn Episode No OBEpisode recorded.
--- OUTSIDE RECORDS SUMMARY | 2024-05-31 06:18 | XMS_ITS ---
Author Organization [facility] Address [address] [place] [address] Care Team Providers Care Dye Machine Tender Name Role Phone Kris Day MD Primary Care Provider UnavailBella Flores Unavailable [phone] REASON FOR VISIT IS PRIOR AUTH NEEDED FOR EGD Encounters Encounter Location Date Provider Diagnosis [facility] [address] [place] [address] 09/24/2023 Bella Reyes PLAN OF TREATMENT No Information
--- OUTSIDE RECORDS SUMMARY | 2024-05-31 06:18 | XMS_ITS ---
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 9 ; Unspecified chronic gastritis without bleeding K29.50 ; Polyp of stomach and duodenum K31.7 ; Gastro-esophageal reflux disease without esophagitis K21.9 ; Abnormal CT scan, esophagus R93.3 and Abdominal pain R10.9 ASSESSMENTS Encounter Date Diagnosis Assessment Notes Treatment Notes Treatment Clinical Notes 09/25/2023 Hiatal hernia (ICD-10 - K44.9) 09/25/2023 Unspecified chronic gastritis without bleeding (ICD-10 - K29.50) 09/25/2023 Polyp of stomach and duodenum (ICD-10 - K31.7) 09/25/2023 Gastro-esophageal reflux disease without esophagitis (ICD-10 - K21.9) 09/25/[address] scan, esophagus (ICD-10 - R93.3) 09/25/2023 Abdominal pain (ICD-10 - R10.9) PLAN OF TREATMENT No Information
--- OUTSIDE RECORDS SUMMARY | 2024-05-31 06:18 | XMS_ITS ---
Author Name [facility] Organization Unknown History of Medication Use Medication Directions Dispensed Refills Start Date End Date [facility] dicyclomine 10 mg capsule TAKE 1-2 CAPSULES BY MOUTH EVERY 6 HOURS NEEDED FOR ABDOMINAL CRAMPS/DISCOMFORT 30 11/14/2022 active prednisone 20 mg tablet TAKE 2 TABLETS EVERY DAY BY ORAL ROUTE IN THE MORNING FOR 4 DAYS. 11/14/2022 active amoxicillin 875 mg-potassium clavulanate 125 mg tablet TAKE 1 TABLET BY MOUTH TWICE A DAY WITH MEALS FOR 10 DAYS 11/14/2022 active doxycycline hyclate 100 mg tablet TAKE 1 TABLET BY MOUTH TWICE A DAY 12/25/2022 active tobramycin 0.3 %-dexamethasone 0.1 % eye drops,suspension 11/14/2022 active fluconazole 150 mg tablet TAKE 1 TABLET BY MOUTH EVERY DAY 11/14/2022 active Eliquis 5 mg tablet TAKE 1 TABLET BY MOUTH TWICE A DAY 11/14/2022 active torsemide 20 mg tablet TAKE 2 TABLETS BY MOUTH EVERY DAY 11/14/2022 active clarithromycin 500 mg tablet TAKE 1 TABLET (ORAL) EVERY 12 HOURS FOR 10 DAYS FOR INFECTION 11/14/2022 active meloxicam 15 mg tablet TAKE 1 TABLET BY MOUTH DAILY 11/14/2022 active Paxlovid 300 mg (150 mg x 2)-100 mg tablets in a dose pack TAKE 3 TABLETS BY MOUTH TWICE A DAY FOR 5 DAYS 11/14/2022 active neomycin 3.5 mg/g-polymyxin B 10,000 unit/g-dexameth 0.1 % eye oint APPLY AN APPLICATIONFUL TO THE AFFECTED LIDS AT BEDTIME 11/14/2022 active cefdinir 300 mg capsule TAKE 1 CAPSULE BY MOUTH TWICE A DAY 11/14/2022 active omeprazole 20 mg capsule,delayed release TAKE 1 CAPSULE BY MOUTH EVERY DAY 11/14/2022 active fluconazole 100 mg tablet TAKE 1 TABLET BY MOUTH EVERY DAY 11/14/2022 active fluorouracil 5 % topical cream APPLY TO AFFECTED AREA TWICE A DAY TO RED SCALY AREAS OF SUN DAMAGE ON NOSE MAY GET REDNESS CRUSTING 11/14/2022 active clotrimazole 10 mg jm DISSOLVE 1 JM IN MOUTH 3 TIMES A DAY 11/14/2022 active ezetimibe 10 mg tablet TAKE 1 TABLET BY MOUTH EVERY DAY 11/14/2022 active xwgfdiop-lawpgeadw-y ydrocort 3.5 mg/mL-10,000 unit/mL-1 % ear solution INSTILL 5 DROPS INTO THE LEFT EAR 2 TIMES DAILY 11/14/2022 active allopurinol 300 mg tablet TAKE 1 TABLET BY MOUTH DAILY 11/14/2022 active omeprazole 40 mg capsule,delayed release TAKE 1 CAPSULE BY MOUTH TWICE A DAY 11/14/2022 active promethazine-DM 6.25 mg-15 mg/5 mL oral syrup TAKE 5 ML (ORAL) EVERY 6 HOURS NEEDED FOR COUGH 11/14/2022 active Allergies Allergen Reaction Severity Comment Documented Date Source Statu s GLUTEN ENS_AONECT CIPRO ENS_[facility]ONECT SULFA (SULFONAMIDE ANTIBIOTICS) ENS_[facility] Problems Problem Status Onset Date Problem Type Date of Resoluti on Source Trochanteric bursitis of right hip active 2022-11-11 ProblemAct [facility] Arthritis of left knee active 2022-11-11 ProblemAct [facility] Pain of left knee joint active 2022-11-11 ProblemAct [facility]
--- OUTSIDE RECORDS SUMMARY | 2024-05-31 06:18 | XMS_ITS ---
Author Organization [facility] Address [address] [place] [address] Care Team Providers Care Planning Engineer Name Role Phone Kris Day MD Primary Care Provider UnavailBella Flores Unavailable [phone] REASON FOR VISIT update/pt with questions./ update Encounters Encounter Location Date Provider Diagnosis [facility] [address] [place] [address] 09/26/2023 Bella Reyes PLAN OF TREATMENT No Information
[2024-05-31 06:36] LABS: MANUAL DIFF FLAG NO
[2024-05-31 07:44] LABS: Basophils Percent Auto 0.8 % (0-2); Eosinophils Absolute Auto 0.1 X10*3/uL (0.0-0.4); Eosinophils Percent Auto 2.2 % (0-4); Hemoglobin 13.3 g/dl (12.0-16.0); Imm Gran Abs Auto 0.01 X10*3/uL (0.00-0.03); Imm Gran Pct Auto 0.3 % (0.0-0.4); Lymphocytes Absolute Auto 1.8 X10*3/uL (1.2-4.9); Lymphocytes Percent Auto 47.6 % (20-40); Mean Corpuscular HGB Conc 31.7 g/dl (31.0-35.0); Mean Corpuscular Hemoglobin 28.5 pg (27.0-33.0); Mean Corpuscular Volume 89.9 fL (80.0-98.0); Mean Platelet Volume 9.1 fL (9.4-12.3); Monocytes Absolute Auto 0.4 X10*3/uL (0.1-1.2); Monocytes Percent Auto 10.8 % (2-11); Neutrophils Absolute Auto 1.4 x10*3/uL (2.0-8.3); Neutrophils Percent Auto 38.3 % (45-73); Platelet Count 201 X10*3/uL (160-400); Red Blood Count 4.67 X10*6/uL (4.20-5.50); Red Cell Distribution Width 14.1 % (11.0-16.0); White Blood Count 3.7 X10*3/uL (4.8-10.8)
[2024-05-31 08:51] LABS: Alanine Aminotransferase 34 U/L (0-31); Alkaline Phosphatase 128 U/L (39-117); Anion Gap 11 (12-20); Aspartate Amino Transferase 33 U/L (5-31); Bilirubin Total 0.6 mg/dL (0.0-1.0); Blood Urea Nitrogen 25 mg/dL (9-16); Calcium 9.4 mg/dL (8.4-10.2); Carbon Dioxide 35 mmol/L (22-29); Chloride 102 mmol/L (96-108); Cholesterol 152 mg/dL (<200); Estimated Glomerular Filt Rate 58; Glucose Fasting 107 mg/dL (60-99); HDL Cholesterol 52 mg/dL (>40); LDL Cholesterol Calculated 75 mg/dL (<100); Potassium 4.2 mmol/L (3.3-5.1); Sodium 144 mmol/L (135-145); Triglycerides 127 mg/dL (<150)
== END 2024-05-31 06:16 | disposition home or self-care (01) ==
LOC: HO.LAB 06:15
PROVIDERS: PCP Internal Medicine; Visit Provider Internal Medicine
DX: I10 Essential (primary) hypertension (principal); E78.00 Pure hypercholesterolemia, unspecified; K58.9 Irritable bowel syndrome, unspecified
CPT/HCPCS: 36415; 80053; 80061; 85025

== ENCOUNTER 2024-09-23 14:53 | Outpatient (AMB) | payer MEDICARE, SELFPAY ==
[2024-09-23 14:45] VITALS: BP 124/80; PULSE 85; RESP 14; TEMP 36.6; O2SAT 99; BMI 25.8
--- NOTE | 2024-09-23 14:45 | A.OFFPC_ITS ---
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: No Accompanied by: Spouse Allergies ciprofloxacin [Ciprofloxacin] Allergy (Severe, Verified 09/23/24 14:45) WHOLE DIGESTIVE SYSTEM SHUT DOWN gluten [GLUTEN] Allergy (Intermediate, Verified 09/23/24 14:45) DIARRHEA Sulfa (Sulfonamide Antibiotics) Allergy (Mild, Verified 09/23/24 14:45) NAUSEA & VOMITING, vomiting Doxycycline Hyclate Allergy (Unknown, Uncoded 09/23/24 14:45) severe thrush gluten Allergy (Unknown, Uncoded 09/23/24 14:45) (+) celiacs cipro Adverse Reaction (Unknown, Uncoded 09/23/24 14:45) n/v sulfa Adverse Reaction (Unknown, Uncoded 09/23/24 14:45) vomiting Tobacco use date assessed: 09/23/24 Fall risk assessment: No Falls in past year Last assessed Fall Risk: 09/23/24 Dental Screening Dental Screen Date: 09/23/24 Did you have a dental visit in the last 12 months?: Yes Did you have a dental problem in the last 6 months where you did not have access to dental care?: No Was dental information given to patient?: Patient has dentist HPI HPI Comments History of Present Illness Details The patient is a 84 year old female with a past medical history of atrial fibrillation, GERD, hyperlipidemia, htn, s/p PPM, ibs, [place] presenting for follow up. Last seen Dec with PCP CV: on eliquis, zetria, torsemide and ASA. Follows with Dr Rodriguez once yearly and follows with cardiology as well. PPM. Has an upcoming appointment in November GERD: on prilosec Follows with [facility], Dr Miller. Got a pedicure about 6 weeks ago. She was nicked. Colonoscopy: Mammography: scheduled for end of January. [facility]: Denies weight loss, fever and chills. HEENT: Denies changes in vision and hearing. RESPIRATORY: Denies SOB and cough. CV: Denies palpitations and CP GI: Denies abdominal pain, nausea, vomiting and diarrhea. : Denies dysuria and urinary frequency. MSK: Denies new myalgia and joint pain. SKIN: Denies rash and pruritus. NEUROLOGICAL: Denies headache PSYCHIATRIC: Denies recent changes in mood. PHYSICAL EXAM: GENERAL: Alert and oriented x 3. NAD EYES: EOMI. Anicteric. HENT: Moist mucous membranes. No scleral icterus. No cervical lymphadenopathy. LUNGS: Clear to auscultation bilaterally. CARDIOVASCULAR: Regular rate and rhythm. No murmur. No JVD. ABDOMEN: Soft, non-tender +bs EXTREMITIES: No edema. Non-tender. SKIN: No rashes or lesions. Warm. NEUROLOGIC: No focal neurological deficits. CN II-XII grossly intact PSYCHIATRIC: Cooperative. Appropriate mood and affect [facility] Medical History (Updated 09/23/24 @ 15:42 by Altagracia Stanton MD) Cataracts, both eyes Kidney disease Hiatal hernia Celiac disease Hyperlipidemia HTN (hypertension) Duodenal ulcer SVT (supraventricular tachycardia) Atrial fibrillation Thyroid nodule Seasonal allergic rhinitis Nodule of upper lobe of right lung Arthritis of right knee GERD (gastroesophageal reflux disease) Vitamin D deficiency Cancer of right breast Diastolic heart failure Pacemaker Surgical History History of colonoscopy (~05/16/14) S/P GODWIN (total abdominal hysterectomy) History of toe surgery Hx of tooth extraction History of bladder suspension procedure Hx of cardiac pacemaker H/O partial resection of colon H/O partial mastectomy History of cardiac radiofrequency ablation History of cholecystectomy History of appendectomy History of hysterectomy Hx of corrected cleft lip and palate Family History Mother No problems noted. Father No problems noted. Social History Housing: House Alcohol intake: never Patient Tobacco Use Status: Former Tobacco user Tobacco use type: Cigarette e-Cigarette/Vaping Use: Never Used Second Hand Smoke Exposure: No service: No Current occupational status: retired Cognitive needs: No Hearing needs: Yes (b/l hearing aids ) Vision needs: Yes ( rx Glasses) Questionnaire PHQ-9 Over the last 2 weeks, how often have you been bothered by any of the following problems? 1. Little interest or pleasure in doing things: not at all 2. Feeling down, depressed, or hopeless: not at all 3. Trouble falling or staying asleep, or sleeping too much: not at all 4. Feeling tired or having little energy: not at all 5. Poor appetite or overeating: not at all 6. Feeling bad about yourself - or that you are a failure or have let yourself or your family down: not at all 7. Trouble concentrating on things, such as reading the newspaper or watching television: not at all 8. Moving or speaking so slowly that other people could have noticed. Or the opposite - being so fidgety or restless that you have been moving around a lot more than usual: not at all 9. Thoughts that you would be better off or of hurting yourself in some way: not at all Total score: 0 Source: Developed by Drs. Karson Cartwright, Alecia Tobin, Junior Alcaraz and colleagues, with an educational antonio from [employer]. Thrive Questionnaire Date Thrive assessed: 09/23/24 I am a: Patient What is your living situation today?: I have a steady place to live Within the past 12 months, did the food you bought not last and you didn't have the money to get more?: Never true Within the past 12 months, did you worry whether your food would run out before you got money to buy more?: Never true Do you have trouble paying for medicines?: No Do you have trouble getting transportation to medical appointments?: No Do you have trouble paying your heating and electricity bill?: No Do you have trouble taking care of your child, family member or friend?: No Do you have trouble with day-to-day activities such as bathing, preparing meals, shopping, managing finances, etc.?: No Are you currently unemployed and looking for a job?: No Are you interested in more education?: No Please select the resources that you would like help with: None THRIVE Score: 0 AUDIT C Alcohol Use Questionnaire (AUDIT-C) 1. How often do you have a drink containing alcohol?: Never 3. How often do you have six or more drinks on one occasion?: Never Total Score: 0 RAFAL-7 AMB Questionnaire RAFAL-7 Date RAFAL - 7 assessed: 09/23/24 Feeling nervous, anxious, or on edge: 0 = Not at all Not being able to stop or control worryin = Not at all Worrying too much about different things: 0 = Not at all Trouble relaxin = Not at all Being so restless that it is hard to sit still: 0 = Not at all Becoming easily annoyed or irritable: 0 = Not at all Feeling afraid as if something awful might happen: 0 = Not at all Total RAFAL-7 score (0-4 normal; 5-9 mild; 10-14 moderate; 15-21 severe): 0 Source: Developed by Drs. Karson Cartwright, Alecia Tobin, Junior Alcaraz and colleagues, with an educational antonio from [employer]. Physical exam (Primary Care) Vital Signs: Last Vital Signs Temp 97.8 F 09/23/24 14:45 Pulse 85 09/23/24 14:45 Resp 14 09/23/24 14:45 BP 124/80 09/23/24 14:45 Pulse Ox 99 09/23/24 14:45 Oxygen Delivery Method Room Air 09/23/24 14:45 BMI result Body Mass Index 25.8 Tobacco/Smoking Status: Tobacco use Status Tobacco use date assessed 09/23/24 09/23/24 14:46 Patient Tobacco Use Status Former Tobacco user 09/23/24 14:46 Tobacco use type Cigarette 09/23/24 14:46 e-Cigarette/Vaping Use Never Used 09/23/24 14:46 PHQ-9: PHQ-9 Score PHQ-9: Total score 0 09/23/24 15:38 Thrive Assessment: Date of Thrive Assessment Date Thrive assessed 09/23/24 09/23/24 14:46 Coding Level of Care Code New Pt Level 4 (67166) Complex EM visit Add On G2211 Diagnoses Longstanding persistent atrial fibrillation I48.11 Atrial fibrillation type: longstanding persistent Hypercholesteremia E78.00 Gastroesophageal reflux disease without esophagitis K21.9 Esophagitis presence: without esophagitis Assessment & Plan Assessment & Plan (1) Atrial fibrillation: Code(s): I48.91 - Unspecified atrial fibrillation Category: Medical Qualifiers: Atrial fibrillation type: longstanding persistent Qualified Code(s): I48.11 - Longstanding persistent atrial fibrillation (2) Hypercholesteremia: Code(s): E78.00 - Pure hypercholesterolemia, unspecified Category: Medical (3) GERD (gastroesophageal reflux disease): Code(s): K21.9 - Gastro-esophageal reflux disease without esophagitis Category: Medical Qualifiers: Esophagitis presence: without esophagitis Qualified Code(s): K21.9 - Gastro-esophageal reflux disease without esophagitis Plan 84 y/o to establish care past medical, surgical social reviewed BP is well controlled on medications Toe pain-will follow up with podiatry. no evidence of infection GERD controlled Orders: Orders Complete Blood Count Auto Diff 3 Months E55.9 - Vitamin D deficiency, unspecified, E78.00 - Pure hypercholesterolemia, unspecified, I48.11 - Longstanding persistent atrial fibrillation, Z13.0 - Encounter for screening for diseases of the blood and blood-forming organs and certain disorders involving the immune mechanism Comprehensive Met. Panel 3 Months E55.9 - Vitamin D deficiency, unspecified, E78.00 - Pure hypercholesterolemia, unspecified, I48.11 - Longstanding persistent atrial fibrillation, Z13.0 - Encounter for screening for diseases of the blood and blood-forming organs and certain disorders involving the immune mechanism Hemoglobin A1c 3 Months E55.9 - Vitamin D deficiency, unspecified, E78.00 - Pure hypercholesterolemia, unspecified, I48.11 - Longstanding persistent atrial fibrillation, Z13.0 - Encounter for screening for diseases of the blood and blood-forming organs and certain disorders involving the immune mechanism Lipid Panel 3 Months E55.9 - Vitamin D deficiency, unspecified, E78.00 - Pure hypercholesterolemia, unspecified, I48.11 - Longstanding persistent atrial fibrillation, Z13.0 - Encounter for screening for diseases of the blood and blood-forming organs and certain disorders involving the immune mechanism
--- OUTSIDE RECORDS SUMMARY | 2024-09-23 17:44 | XMS_ITS ---
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 [facility] Outpatient [address] [place] [address] [id number] 09/25/2023 Bella Reyes Hiatal hernia K44. 9 [...] CRYSTAL MOCTEZUMA MDOB:[birth year] (84 yo F)Acc No.[id number]:09/25/2023 EGD/MAC Patient:?CRYSTAL MOCTEZUMA Provider:?Bella Reyes MD :[id number]???Age:83 Y???Sex:Female D ate:09/25/2023 Address:[address] [place] [address], [address], [place], [id number] Pcp:Kris Day MD Subjective: * Chief Complaints: * ???1. Epigastric pain, hiata l hernia, abnormal barium swallow. * Medical History:? Objective: * Vitals:? Assessment: * Assessment: 1.?Hiatal hernia - K44.9 (Pr imary)???2.?Unspecified chronic gastritis without bleeding - K29.50???3.?Polyp of stomach and duodenum - K31.7???4.?Gastro- esophageal reflux disease without esophagitis - K21.9???5.?Abnormal CT scan, esophagus - R93.3???6.?Abdominal pain - R10.9??? Plan: * Treatment: * Procedure Codes:?03981 UPPER GI ENDOSCOPY, BIOPSY * * The named appointment provid er may or may not be the originator of this progress note, and it is not deemed complete until electronically signed by the appointment provider. Sign off status: Pending * Provider:?Bella Reyes MD Date:? 024 Generated for Abdoul vidal/Yandy/eTransmitting on:?09/23/2024 05:43 PM EDT
--- OUTSIDE RECORDS SUMMARY | 2024-09-23 17:44 | XMS_ITS | Data Portability ---
Author Organization [place] [facility] Wilmer Garcia AONE Carmichaels Address [address] [place] [address] Care Team Providers Care Spool Salvager Name Role Phone LUDIN RÍOS Primary Care Provider [phone] Assessment Encounter Date Assessment Date Assessment LastModified [...] is as needed. Not available 12/23/2022 14:01:42 07/15/2024 07/15/2024 83-year-old female with left knee pain. History, examination and x-rays are consistent with advanced osteoarthritis with a superimposed acute strain and sprain. After discussion regarding treatment options she wishes to proceed with cortisone injection today. Follow-up with me in 2 months. If the left knee is feeling better at that time she may require further attention to the right knee. This patient was seen and evaluated by Ernst Remy MS, [place] in indirect conjunction with documenting/super vising provider Hermann Ramirez MD. He agrees with history, physical examination, tests/diagnostic imaging, and treatment plan. This document was generated using voice recognition software. As a result, there may be unintended spelling, grammatical and/or textual errors. [facility] Not available 07/15/2024 10:37:37 Plan of Treatment Reminders Order Date Submit Date Provider Last Modified By Organization Details Last Modified Time Details Appointments FOLLOW UP 2024 02:30P M ERNST REMY PA-C Not available Not available Not available Lab None recorded. Referral None recorded. Procedures None recorded. Surgeries None recorded. Imaging XR, knee, 4 or more view 2024 025 [facility], [address], [place], [address], 07/15/2024 11:16:25 XR, knee, 4 or more view 2022 023 [facility], [address], [place], [address], 11/11/2022 10:09:48 Medication Orders Marcaine (PF) 0.5 % (5 mg/mL) injection solution [address]/[id number], [address] [place], [address], 07/15/2024 11:16:25 lidocaine (PF) 100 mg/5 mL (2 %) injection syringe [address]/[id number], [address] [place], [address], 07/15/2024 11:16:25 triamcino lone acetonide 40 mg/mL suspensio n for injection 2024 025 [id number], [address] [place], [address], 07/15/2024 11:16:25 Patient TargetsNo targets recorded. Patient Instructions Encounter Date Encounter Id Patient Instructions Last Modified By Organization Details Last Modified Time 11/11/2022 [id number] X-rays show evidence of {{mild moderate se [...] osseous structures. Not available 11/11/2022 09:31:55 12/23/2022 [id number] physical therapy* [email or web address] Not availa ble 12/30/2022 08:29:03 07/15/2024 [id number] {{2 3 4 5 6 7* 8 9 }} view X-ray study obtained during today's office encounter show {{no}} evidence of {{mild moderate se deepak*}} {{right left* bila teral}} {{hip knee*}} osteoarthritis. There is joint space narrowing, subchondral sclerosis and marginal osteophytosis. Kellgren-Raciel grade {{0 1 2 3* 4}}. No evidence of acute fracture or osteolytic findings. The predominance of her wear is at the patellofemoral joint. These x-rays are compared to a study done on 11/11/2022 and showed no significant interval change. Not available 07/15/2024 10:14:34 Reason for Referral None Reported. Problems Name Problem SNOMED Code Status Onset Date Resolution Date Notes Provider Name and Address Organization Details Recorded Time Osteoarthri tis of left knee joint 6524382598161 09 Active 2024 ERNST REMY PA-C [address], [place], [address], [place] [facility], [facility] 5 10:12:25 Pain of left knee joint 0637440443808 07 Active 2022 ERNST REMY PA-C [address], [place], [address], [place] [facility], [facility] 3 09:16:19 Trochanteri c bursitis of right hip 3607413350125 00 Active 2022 ERNST REMY PA-C [address], [place], [address], [place] [facility] 3 09:16:22 Arthritis of left knee 5729807715192 104 Active 2022 ERNST REMY PA-C [address], [place], [address], [place] [facility], [facility] 3 09:16:24 Problem Notes None recorded. Procedures Surgical History Date Name Laterality Status Provider Name and Address Organization Details Recorded Time 5 MJG Knee injection w/US completed ERNST REMY PA-C [address], [place], [address], [place] [facility] 07/15/2024 10:12:10 3 MJG Knee injection w/US completed ERNST REMY PA-C [address], [place], [address], [place] [facility] 11/25/2022 10:35:31 3 MJG GT injection completed ERNST REMY PA-C [address], [place], [address], [place] [facility] 11/11/2022 09:17:28 Imaging Results None recorded. [...] Not available Not available Not available 11/11/2022 [id number] 8003 SNOMED Lyle Aguirre null, [place] [facility], [facility] 3 09:03:25 4751 Cipro medicatio n Not available Not available Not available 11/11/2022 [id number] 3 RxNorm Lyle Aguirre null, [place] [facility] 3 09:03:31 4752 wheat gluten extract food Not available Not available Not available 11/11/2022 [id number] 81 RxNorm Lyle Aguirre null, [place] [facility] 3 09:03:37 Medications Name Sig Start Date Stop Date Status Note LastModified by Organization Details LastModified Time fluconazole 100 mg tablet TAKE 1 TABLET BY MOUTH EVERY DAY 07/15 completed Not Available Not Available Not Available clotrimazol e 10 mg av DISSOLVE 1 AV IN MOUTH 3 TIMES A DAY active Not Available Not Available No t Available promethazin e-DM 6.25 mg-15 mg/5 mL oral syrup TAKE 5 ML (ORAL) EVERY 6 HOURS NEEDED FOR COUGH 07/15 completed Not Available Not Available Not Available neomycin-po lymyxin-hyd rocort 3.5 mg/mL-10,00 0 unit/mL-1 % ear solution INSTILL 5 DROPS INTO THE LEFT EAR 2 TIMES DAILY 07/15 completed Not Available Not Available Not Available torsemide 20 mg tablet TAKE 2 TABLETS BY MOUTH EVERY DAY active Not Available Not Available No t Available fluconazole 150 mg tablet TAKE 1 TABLET BY MOUTH EVERY DAY 07/15 completed Not Available Not Available Not Available clarithromy sangeeta 500 mg tablet TAKE 1 TABLET (ORAL) EVERY 12 HOURS FOR 10 DAYS FOR INFECTION 07/15 completed Not Available Not Available Not Available meloxicam 15 mg tablet TAKE 1 TABLET BY MOUTH DAILY 07/15 completed Not Available Not Available Not Available prednisone 20 mg tablet TAKE 2 TABLETS EVERY DAY BY ORAL ROUTE IN THE MORNING FOR 4 DAYS. 07/15 completed Not Available Not Available Not Available fluorouraci l 5 % topical cream APPLY TO AFFECTED AREA TWICE A DAY TO RED SCALY AREAS OF SUN DAMAGE ON NOSE MAY GET REDNESS CRUSTING 07/15 completed Not Available Not Available Not Available omeprazole 40 mg capsule,del ayed release TAKE 1 CAPSULE BY MOUTH TWICE A DAY 07/15 completed Not Available Not Available Not Available triamcinolo ne acetonide 40 mg/mL suspension for injection Take 40 mg by injection route. 2024 active Not Available Not Available Not Avai lable omeprazole 20 mg capsule,del ayed release TAKE 1 CAPSULE BY MOUTH EVERY DAY active Not Available Not Available No t Available allopurinol 300 mg tablet TAKE 1 TABLET BY MOUTH DAILY active Not Available Not Available No t Available albuterol sulfate HFA 90 mcg/actuati on aerosol inhaler TAKE 2 PUFFS INHALED EVERY 4 TO 6 HOURS NEEDED FOR SHORTNESS OF BREATH active Not Available Not Available No t Available ondansetron 4 mg disintegrat ing tablet DISSOLVE 1 TABLET ON TONGUE EVERY 6 HOURS NEEDED FOR NAUSEA AND VOMITTING active Not Available Not Available No t Available cefdinir 300 mg capsule TAKE 1 CAPSULE BY MOUTH TWICE A DAY 07/15 completed Not Available Not Available Not Available doxycycline hyclate 100 mg tablet TAKE 1 TABLET BY MOUTH TWICE A DAY 07/15 completed Not Available Not Available Not Available dicyclomine 10 mg capsule TAKE 1-2 CAPSULES BY MOUTH EVERY 6 HOURS NEEDED FOR ABDOMINAL CRAMPS/DI SCOMFORT 30 active Not Available Not Available No t Available metoclopram ana 10 mg tablet TAKE 1 TABLET BY MOUTH TWICE A DAY active Not Available Not Available No t Available amoxicillin 875 mg-potassiu m clavulanate 125 mg tablet TAKE 1 TABLET BY MOUTH TWICE A DAY WITH MEALS FOR 10 DAYS active Not Available Not Available No t Available tobramycin 0.3 %-dexametha sone 0.1 % eye drops,suspe nsion INSTILL 1 DROP INTO BOTH EYES 3 TIMES A DAY 07/15 completed Not Available Not Available Not Available neomycin 3.5 mg/g-polymy carlito B 10,000 unit/g-dexa meth 0.1 % eye oint APPLY AN APPLICATI ONFUL TO THE AFFECTED LIDS AT BEDTIME 07/15 completed Not Available Not Available Not Available ezetimibe 10 mg tablet TAKE 1 TABLET BY MOUTH EVERY DAY active Not Available Not Available No t Available Marcaine (PF) 0.5 % (5 mg/mL) injection solution Take 4 mL by injection route. 2024 active Not Available Not Available Not Avai lable lidocaine (PF) 100 mg/5 mL (2 %) injection syringe Take 4 mL by injection route. 2024 active Not Available Not Available Not Avai lable Eliquis 5 mg tablet TAKE 1 TABLET BY MOUTH TWICE A DAY active Not Available Not Available No t Available Paxlovid 300 mg (150 mg x 2)-100 mg tablets in a dose pack TAKE 3 TABLETS BY MOUTH TWICE A DAY FOR 5 DAYS 07/15 completed Not Available Not Available Not Available Vitals Date Recorded Body height Body mass index (BMI) Body weight Provider Name and Address Organization Details Last Updated DateTime 11/11/2022 172.72 cm 27.1 kg/m2 18589.44 g [facility]yle [facility] 11/11/2022 09:03:44 Date Recorded Body height Body mass index (BMI) Body weight Provider Name and Address Organization Details Last Updated DateTime 11/25/2022 172.72 cm 27.1 kg/m2 32025.44 g Lyle Aguirre [facility] 11/25/2022 10:22:15 Date Recorded Body height Body mass index (BMI) Body weight Provider Name and Address Organization Details Last Updated DateTime 12/23/2022 172.72 cm 27.1 kg/m2 20964.44 g Agatha Chacho [facility] 12/23/2022 13:51:57 Social History Question Answer Notes LastModified by Organizat ion Details LastModified Time Tobacco Smoking Status Former Smoker Lyle [place], [place] - [facility] 11/11/2022 09:04:02 What Is Your Level Of Alcohol Consumption? None [email or web address] Information not available 11/11/2022 When Did You Quit Smoking? 14+yearssin naveen rojas [email or web address] Information not available 11/11/2022 Do You Use Any Illicit Or Recreational Drugs? No [email or web address] Information not available 11/11/2022 How Many Years Have You Smoked Tobacco? 20 [email or web address] Information not available 11/11/2022 Do You Or Have You Ever Used Any Other Forms Of Tobacco Or Nicotine? No Information not available 11/11/2022 Sex: Unknown Functional Status None recorded. Mental Status None recorded. Family History Relationship Description Onset Age of this Age Resolved Age Notes LastModified by Organization Details LastModified Time Mother Arthritis [email or web address] Not avai lable 11/11/2022 09:04:43 Mother Diabetes mellitus [email or web address] Not available 10/2022 09:04:52 Mother Heart disease [email or web address] Not available 10/2022 09:05:03 Mother Hyperlipidem ia [email or web address] Not available 10/2022 09:05:12 Mother Hypertensive disorder [email or web address] Not available 10/2022 09:05:20 Father Diabetes mellitus [email or web address] Not available 10/2022 09:04:52 Father Heart disease [email or web address] Not available 10/2022 09:05:03 Medical History Condition Response Heart Disease Y Gout Y Cancer Y Reflux/GERD Y Gynecological HistoryNo gynecological history recorded. Obstetrics History GPAL:G 0 P 0 0 0 0 Past Encounters Encounter ID Performer Location Encounter Start Date Encounter Closed Date Diagnosis/Indication Diagnosis SNOMED-CT Code Diagnosis ICD10 Code Diagnosis Note [id number] [facility] [address] [facility] [address] [place] [address] 11/11/2022 08:48:19 11/11/2022 09:40:18 Pain of left knee joint 0843424745 82192 M25.562 Trochanter ic bursitis of right hip 8234584838 88745 M70.61 Arthritis of left knee 3549552705 760435 M13.862 [id number] MD RADHA Barrios [address] [facility] [address] [place] [address] 11/25/2022 10:18:33 11/25/2022 10:58:21 Arthritis of left knee 8733967275 530458 M13.862 [id number] MD RADHA Barriosmaria elena mclean [address] [facility] [address] [place] [address] 12/23/2022 13:37:53 12/23/2022 14:15:30 Arthritis of left knee 6876971844 870826 M13.862 Trochanter ic bursitis of right hip 5295195929 71824 M70.61 Diagnosis: R greater trochanter ic bursitis with IT band friction syndrome Evaluate and treat as indicated to reduce pain and to improve mobility, range of motion, and function. Please teach a home exercise plan and incorporat e PT into patient's exercise routine. 2-3 sessions weekly for 6 weeks. [id number] MD RADHA Barrios [address] [place] [address] 07/15/2024 08:44:28 07/15/2024 10:35:10 Arthritis of left knee 2552945565 649937 M13.862 Osteoarthr itis of left knee joint 7841751410 04579 M17.12 Health Concerns Section Related Observation LastModified by Organization Detai ls LastModified Time None Recorded Concern Status LastModified by Organization Details LastModified Time None Recorded Advance Directives Directive None Recorded Payers Encounter Date Sequence Insurance Name Policy Number Policy Wong Covered Member ID Wong Member ID Guarantor Name 11/11/2022 1 [facility] (MEDICARE REPLACEMENT/A DVANTAGE - PPO) [id number] Ginette Champion [id number] Ginette Champion 11/25/2022 1 [facility] (MEDICARE REPLACEMENT/A DVANTAGE - PPO) [id number] Ginette Champion [id number] Ginette Champion 12/23/2022 1 [facility] (MEDICARE REPLACEMENT/A DVANTAGE - PPO) [id number] Ginette Champion [id number] Ginette Champion 07/15/2024 1 [facility] (MEDICARE REPLACEMENT/A DVANTAGE - PPO) [id number] Ginette Champion [id number] Ginette Champion Notes Date Note Type Note [...] joint. Lyle [place], [place] - [facility] 11/19/2022 16:04:12 11/25/2022 text/html 82-year-old yvon [...] hip or left knee. ERNST REMY PA-C [address] [facility], [place], [address], [place] [facility] 11/25/2022 10:36:39 12/23/2022 text/html 82-year-old yvon hernandez reports that the cortisone injection to the left knee was effective at alleviating all of her pain. She has persistent right hip pain with sensitivity to direct pressure. There is otherwise no change in character quality or location of her right hip symptoms. ERNST REMY PA-C [address], [place], [address], [place] [facility] 12/23/2022 14:02:47 07/15/2024 text/html 83-year-old yvon hernandez presents with recurrence of left knee pain. She is known to have osteoarthritis of the knee and has been comfortable since a 2022 cortisone injection. However, on Day she was pushing somebody in a wheelchair. That person abruptly dropped their feet to the ground causing the wheelchair to stop and this caused a jamming type injury to Ginette's left knee. This has left her with anterior joint discomfort ever since that time. ERNST REMY PA-C [address], [place], [address], [place] [facility] 07/15/2024 10:38:11 OBGyn Episode No OBEpisode recorded.
--- OUTSIDE RECORDS SUMMARY | 2024-09-23 17:44 | XMS_ITS ---
Author Organization [facility] Address [address] [place] [address] Care Team Providers Care Thread Laster Name Role Phone Kris Day MD Primary Care Provider Linwood Trinidad Unavailable [phone] Allergies Allergen (clinical drug ingredient) Drug/Non Drug [...] Date Status Alendronate Sodium 70 MG (Prior Auth#:[id number] ) Oral for 28 Not-Taking Physical Therapy [...] 024 Encounters Encounter Location Date Provider Diagnosis [facility] [address] [address] 02/18/2024 Linwood Dhaliwal Ingrowing nail L60.0 ; [...] Next Appt Details Follow Up: prn, Reason: Provider Name:Ramona Caban ferny, 12/01/2024 09:15:00 AM, [address] [facility], [place], [address], Progress Notes * Ginette CHAMPION MDOB:[birth year] (83 yo F)Acc No.[id number]:02/18/2024 Progress Note Patient:?Ginette Champion Provider:?Linwood Dhaliwal DPM :1940???Age:83 Y???Sex:Female D ate:02/18/2024 [place] [place], [place] Pcp:Kris Day MD Subjective: * Chief Complaints: * ???Last Visit PCP 09/05/2022 * HPI: ???Skin problems:?Nature:?discolored.?Location:?/L , [facility].?Duration:?several years.?Onset/Cause:?unknown.?Course:?improved.?Aggravated by:?any pressure.?Treatments:?self care, Topical [...] * Surgical History:?breast eladia or removal 1997cholecystectomy 1985colon resection 1986hysterectomy 1980lens implant OD, OS 2005hammer toe 2012heart surgery unspecified Cardio Version 02/2020,04/2020 * Hospitalization/Major Diagno stic Procedure:?[facility] for a Heart Procedure 04[place] [place] perforated bowel 12 days [...] yes. ?Exercise: yes. ?Marital status: . 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 * Medications:?TakingAspir-81 Calcium Centrum Silver Dicyclomine HCl [...] directed Alendronate Sodium 70 MG Tablet (Prior Auth#:[id number]) Oral Physical Therapy . . . . [...] Not-Taking/PRN Alendronate Sodium 70 MG Tablet (Prior Auth#:[id number]) Oral Not-Taking/PRN Physical Therapy . . . [...] * Sign off status: Completed true * Provider:?Linwood Dhaliwal DPM Date:? 024 Generated for Abdoul vidal/Yandy/eTrankirill on:?09/23/2024 05:44 PM EDT History and Physical Notes * HPI (History [...]
--- OUTSIDE RECORDS SUMMARY | 2024-09-23 17:44 | XMS_ITS | Clinical Summary ---
Author Organization [facility] it Address [address] [place] [address] Care Team Providers Care Health Care Coordinator Name Role Phone Kris Day MD Primary Care Provider [phone] Surgical History Surgery Date Site/Laterality Comments HYSTERECTOMY 1976 PROCEDURE: HISTORICAL HYSTERECTOMY APPENDECTOMY 1978 PROCEDURE: FL APPENDECTOMY BREAST LUMPECTOMY 1988 Right PROCEDURE: HISTORICAL BREAST LUMPECTOMY BLADDER SUSPENSION 2001 PROCEDURE: HISTORICAL BLADDER SUSPENSION OTHER SURGICAL HISTORY 2018 PROCEDURE: FL BIOPSY THYROID PERCUTANEOUS CORE NEEDLE CARDIAC SURGERY 2016 PROCEDURE: HISTORICAL HEART SURGERY(ASD,VSD,VALVES); COMMENT: Ablation of Heart Node PACEMAKER IMPLANT 2020 PROCEDURE: HISTORICAL PACEMAKER OTHER SURGICAL HISTORY 1995 PROCEDURE: LAPAROSCOPIC INTEST RESECT/ANAST; COMMENT: Right colon volvulus & gallbladder resection OTHER SURGICAL HISTORY 1983 PROCEDURE: FL PALATOPLASTY CLEFT PALATE MAJOR REVJ; COMMENT: Redo OTHER SURGICAL HISTORY 1938 PROCEDURE: FL PALATOPLASTY CLEFT PALATE MAJOR REVJ; COMMENT: Cleft palate & lip repair BLADDER SUSPENSION 2001 PROCEDURE: HISTORICAL BLADDER SUSPENSION HERNIA REPAIR 2015 PROCEDURE: LAPAROSCOPY, INGUINAL HERNIA REPAIR; COMMENT: + intestine resection OTHER SURGICAL HISTORY 2016 PROCEDURE: FL UNLISTED PROCEDURE CARDIAC SURGERY; COMMENT: Cardiac Abalation OTHER SURGICAL HISTORY 2020 PROCEDURE: FL INS NEW/RPLC PRM PACEMAKER W/TRANSV ELTRD VENTR OTHER SURGICAL HISTORY 11/18/2023 N/A PROCEDURE: FL LAPS RPR PARAESPHGL HRNA INCL FUNDPLSTY W/MESH Medical History Medical History Date Comments History of breast cancer DX:Hist ory of breast cancer Acquired hammer toe of left foot DX:Acquired hammer toe of left foot Atrial fibrillation (CMS/HCC V24, CMS/HCC V28) DX:Atrial fibrillation (HCC) Bilateral sensorineural hearing loss DX:Bilateral sensorineural hearing loss Carpal tunnel syndrome DX:Carpal tunnel syndrome Celiac disease DX:Celiac diseas e Chronic constipation DX:Chronic constipation CKD (chronic kidney disease) DX: CKD (chronic kidney disease) Colon polyps DX:Colon polyps Coronary artery calcification DX :Coronary artery calcification Diastolic dysfunction DX:Diastol ic dysfunction Female cystocele DX:Female cysto andriy Former heavy cigarette smoke r (20-39 per day) DX:Former heavy cigarette sm oker (20-39 per day) GERD (gastroesophageal reflux disease) DX:GERD (gastroesophageal reflux disease) History of total hysterectomy DX :History of total hysterectomy HTN (hypertension) DX:HTN (hyper tension) Hemorrhoids DX:Hemorrhoids Hernia, hiatal DX:Hernia, hiata l History of partial colectomy DX: History of partial colectomy Mixed hyperlipidemia DX:Mixed hy perlipidemia Knee osteoarthritis DX: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 current use of anticoagulant DX:jail current use of anticoagulant Nodule of right lung DX:Nodule o f right lung Observed sleep apnea DX:Observed sleep apnea; COMMENT: unable to tolerate CPAP Osteoporosis DX:Osteoporosis Paroxysmal SVT (supraventric ular tachycardia) (CMS/HCC V24) DX:Paroxysmal SVT (supraven tricular tachycardia) (HCC) Thyroid goiter DX:Thyroid goite r History of stomach ulcers DX:His tory of stomach ulcers Family History Medical History Relation Name Comments Diabetes Father Breast cancer Mother Hyperlipidemia Mother Hypertension Mother Stroke Mother Relation Name Status Comments Father Mother Social History Tobacco Use Types Packs/Day Years Used Date Smoking Tobacco: Former Cigarettes 1 21 0 06/09/1955 - 06/09/1976 Smokeless Tobacco: Never Alcohol Use Standard Drinks/Week Comments Not Currently 0 (1 standard drink = 0.6 oz pur e alcohol) Comments Unknown Sex and Gender Information Value Date Recorded Sex Assigned at Not on file Legal Sex Female 11:01 PM EST Gender Identity Not on file Sexual Orientation Not on file Obstetrics History Last Filed Vital Signs Vital Sign Reading Time Taken Comments Blood Pressure 151/83 12/18/2023 9:43 AM EDT Sitting R Arm Pulse 93 12/18/2023 9:43 AM EDT Temperature - - Respiratory Rate - - Oxygen Saturation - - Inhaled Oxygen Concentration - - Weight 70.9 kg (156 lb 4.8 oz) 12/18/2023 9:43 AM EDT Height 168.9 cm (5' 6.5 ) 12/18/2023 9: 43 AM EDT Body Mass Index 24.85 12/18/2023 9:43 AM EDT Plan of Treatment Upcoming Encounters Date Type Department Care Team (Late st Contact Info) Description 01/21/2025 9:30 AM EDT Appointment [facility] [address] [address] Health Maintenance Due Date Last Done Comments DTaP,Tdap,and Td Vaccines (1 - Tdap) 1957 Pneumococcal Vaccine: 50+ Years (1 of 1 - PCV) 1988 Zoster Vaccines (1 of 2) 1988 RSV Immunization Adult Patients (1 - 1-dose 75+ series) 2013 COVID-19 Vaccine (3 - Pfizer risk series) 08/22/2020 07/25/2020, 07/03/2020 Cholesterol Screening (Lipid Panel) 05/12/2022 Depression Screening 05/12/2022 Falls Risk Assessment 05/12/2022 Medicare Annual Wellness Visit 05/12/2022 Osteoporosis Screening (Bone Density Screening) 05/12/2022 Social Influencers of Health Screening 05/12/2022 Hypertension/CHF/CAD Annual BMP Blood Test 01/02/2024 Influenza Vaccine (Season Ended) 2025 HIB Vaccines Aged Out No longer eligi ble based on patient's age to complete this topic HPV Vaccines Aged Out No longer eligi ble based on patient's age to complete this topic Hepatitis A Vaccines Aged Out No long er eligible based on patient's age to complete this topic Hepatitis B Vaccines Aged Out No long er eligible based on patient's age to complete this topic IPV Vaccines Aged Out No longer eligi ble based on patient's age to complete this topic MMR Vaccines Aged Out No longer eligi ble based on patient's age to complete this topic Meningococcal ACWY Vaccine Aged Out N o longer eligible based on patient's age to complete this topic Meningococcal B Vaccine Aged Out No l onger eligible based on patient's age to complete this topic RSV Immunization Patients Under 20 months Aged Out No longer eligible b ased on patient's age to complete this topic Varicella Vaccines Aged Out No longer eligible based on patient's age to complete this topic Insurance [employer] MEDICARE Care Teams Health Care Coordinator Relationship Specialty Start Date End Date Kris Day MD [address] [place] [address] Dr Angelica MA PCP - General 05/10/22
--- OUTSIDE RECORDS SUMMARY | 2024-09-23 17:44 | XMS_ITS | Clinical Summary ---
Author Organization [facility] Address [address] [place] [address] Care Team Providers Care Salon Sales Consultant Name Role Phone Kris Day MD Primary Care Provider [phone] Allergies Active Allergy Reactions Criticality Noted Date Comments Ciprofloxacin Nausea Only 11/09/2021 Other Nausea And Vomiting 11/09/2021 Medications Medication Sig Dispensed Refills Start Date End Date Status B Complex Vitamins (B COMPLEX 100 PO) Daily, 0 Refills, Maintenance 0 02/21/2011 Active Calcium Carbonate-Vitamin D (Calcium 600+D) 600-200 MG-UNIT TABS Take by mouth. 0 04/22/2013 Active Multiple Vitamins-Minerals (CENTRUM SILVER ULTRA WOMENS PO) Take by mouth. 0 01/18/2019 Acti ve allopurinol (ZYLOPRIM) 100 MG tablet Take 100 mg by mouth 2 (two) times a day. 0 08/27/2021 Active Eliquis 5 MG TABS tablet Take 5 mg by mouth 2 (two) times a day. 0 08/13/2021 Active dicyclomine (BENTYL) 10 MG capsule TAKE 1-2 CAPSULES BY MOUTH EVERY 6 HOURS NEEDED FOR ABDOMINAL CRAMPS/DISCOMFORT FOR 30 DAY(S) 0 08/06/2021 Active ezetimibe (ZETIA) tablet 10 mg Take by mouth. 0 05/02/2021 Active omeprazole (PriLOSEC) 40 MG capsule 0 11/07/2021 Active torsemide (DEMADEX) 20 MG tablet Take 40 mg by mouth daily. 0 09/17/2021 Active zoledronic acid (RECLAST) 5 MG/100ML SOLN IVPB Inject 5 mg into the vein. 0 05/11/2021 Active Immunizations Name Administration Dates Next Due Covid-19 (Pfizer) Dilution Required 07/25/2020,0 07/03/2020 Family History Medical History Relation Name Comments Diabetes Father Arthritis Mother Diabetes Mother Hypertension Mother Relation Name Status Comments Father Mother Social History Tobacco Use Types Packs/Day Years Used Date Smoking Tobacco: Former Smokeless Tobacco: Never Tobacco Cessation:Counseling Given: Not Answered Alcohol Use Standard Drinks/Week Comments Never 0 (1 standard drink = 0.6 oz pur e alcohol) Sex and Gender Information Value Date Recorded Sex Assigned at Female 07/03/2020 11:41 AM EST Gender Identity Not on file Sexual Orientation Not on file Job Start Date Occupation Industry Not on file Not on file Not on file Last Filed Vital Signs Vital Sign Reading Time Taken Comments Blood Pressure - - Pulse - - Temperature - - Respiratory Rate - - Oxygen Saturation - - Inhaled Oxygen Concentration - - Weight 79.8 kg (176 lb) 05/10/2022 10:22 AM EST Height 172.7 cm (5' 8 ) 05/10/2022 10:22 AM EST Body Mass Index 26.76 05/10/2022 10:22 AM EST Plan of Treatment Health Maintenance Due Date Last Done Comments Depression Screening 1950 Preventative Health Evaluation 1956 Fall Risk Assessment 2003 Osteoporosis Screening (DEXA Scan) 2003 Shingrix-Zoster Vaccine (2 o f 2) 05/04/2007 03/09/2007 RSV Adult > 60+ Yrs or (1 - 1-dose 75+ series) 2013 DTap / Tdap / Td (1 - Tdap) 03/09/2019 03/08/2019 COVID-19 Vaccine (3 - 2023-2 5 season) 2024 07/25/2020, 07/03/2020 Influenza Vaccine (#1) 2024 Pneumococcal Vaccine Completed 02/25/2019, 02/16/2016, 03/15/2015 Hepatitis B Vaccines Aged Out No long er eligible based on patient's age to complete this topic RSV Ped < 20 months Aged Out No longe r eligible based on patient's age to complete this topic Care Teams Salon Sales Consultant Relationship Specialty Start Date End Date Kris Day MD [address] [place] [address] Dr [address] [place] [address] PCP - General Industrial Management Teacher 05/10/22
--- OUTSIDE RECORDS SUMMARY | 2024-09-23 17:44 | XMS_ITS ---
Author Organization [facility] Address [address] [place] [address] Care Team Providers Care Scorekeeper Name Role Phone Kris Day MD Primary Care Provider Bella Jones Unavailable [phone] REASON FOR VISIT IS PRIOR AUTH NEEDED FOR EGD Encounters Encounter Location Date Provider Diagnosis [facility] [address] [place] [phone] 09/24/2023 Bella Reyes Plan Of Treatment No Information Progress Notes * CRYSTAL MOCTEZUMA MDOB:[birth year] (83 yo F)Acc No.[id number]:09/24/2023 Patient:?CRYSTAL MOCTEZUMA :1940???Age:83 Y???Sex:Female Address[address], [address], [place] [address] * true * Date:? Generated for Printi young/Yandy/eTransmitting on:?09/23/2024 05:43 PM EDT
--- OUTSIDE RECORDS SUMMARY | 2024-09-23 17:44 | XMS_ITS | Patient Health Record ---
Author Organization [facility] Address [address] [place] [address] Care Team Providers Care Coil Binder Name Role Phone Kris Day MD Primary Care Provider Bella Jones Unavailable [phone] Allergies Allergen (clinical drug ingredient) Drug/Non Drug Allergy documented on EMR Reaction Allergy Type Onset Date Status Sulfa Unknown Drug Allergy Active ciprofloxacin Cipro Unknown Drug Allergy Act ciera Substance with 4-qocjxsy-1-methylglutar yl-coenzyme A reductase inhibitor mechanism of action (substance) statins (uncoded) Unknown Allergy Acti ve Results Component Value Reference Range Notes Pathology Reviewed date:10/11/2023 09:18:33 PM Interpretation: Performing Lab:[facility], [address] [place] [id number] Notes/Report: Name: Ginette Champion Age/Sex: 83/F : 1940 Unit#: [id number] Attend Dr: Bella Reyes Re09/25/23 Status : [facility] Location: [facility] Disch: SPEC : RECD : 09/26/23 STATUS: SUMI ZAMAN NUM: [id number] SARAH: 09/25/231529 [facility] DR: Bella Reyes ENTERED: 09/26/23 SP TYPE: Surgical OTHR DR: Kris Day MD ORDERED: HE Stain/9, Gross Micro L4/3, IHC/2, Special st. 2/3, H. pylori/2, AB/PAS/3 Diagnosis A. Duodenum, descend ing, biopsy: Duodenal mucosa with preserved villi and no specific change; no evidence of celiac disease. B. Gastric antrum, b iopsy: Gastric antral mucosa with minimal chronic inactive gastritis; negative for H pylori, intestinal metaplasia and dysplasia. C. Gastric polyp: Fu ndic gland polyp with focal minimal chronic inactive inflammation; negative for H pylor i, intestinal metaplasia and dysplasia. Clinical History Pre-Op Dx: Epigastri c pain, diaphragmatic hernia Post-Op Dx: Hiatal h ernia, gastritis, gastric polyp Microscopic Description Microscopic sections reviewed. Immunostains for H. pylori on B and C are negative. AB/PAS on A is negative for evidence of chronic injury. AB/PAS on B and C are negative for intestinal metaplasi a. Controls stain appropriately. Material Received A. Descending duoden um bx, h/o celiac disease B. Gastric antrum bx C. Gastric polyp Gross Description Received in 3 parts. Part A: Received in formalin labeled ?descending duodenum bx? are 6 blanca irregular and rectangular tissue f ragments ranging from than 0.1-0.35 submitted in toto in a cassette labeled A. Part B: Received in formalin labeled ?gastric antrum bx? are 3 irregular and rectangular tissue fragments ran ging from 0.3-0.5 cm, submitted in toto in a cassette labeled B. Part C: Received in formalin labeled ?gastric polyp? are 3 blanca irregular tissue fragments ranging from 0.15-0. 3 cm, submitted in toto in a cassette labeled C. ERVIN CONTINUED ON NEXT PAGE Name: Ginette Champion Age/Sex: 83/F : 1940 Unit#: [id number] Attend Dr: Bella Reyes Re09/25/23 Status : [facility] Location: [facility] Disch: SPEC : RECD : 09/26/23 STATUS: SUMI AUSTYN NUM: [id number] SARAH: 09/25/23-9 [facility] DR: Bella Reyes ENTERED: 09/26/23- 31 SP TYPE: Surgical OTHR DR: Kris Day MD ORDERED: HE Stain/9, Gross Micro L4/3, IHC/2, Special st. 2/3, H. pylori/2, AB/PAS/3 Gross Description (Continued) Special studies orde red and performed: Immunostain for H. pylori on B1 and C1; AB/PAS stains on A1, B1 and C1. Copies To: Kris Day MD [address] [place] [address], [facility] [address] [place] [address] Bella Reyes [address] [place] [address] [address] [place] [address] Signed (si ashley on file) Zhane Penaloza 09/29/23 1359 END OF REPORT Reason For Referral No Information Medications Medication [...] DAILY AT BEDTIME Oral for 15 Active Immunizations Vaccine Route Administration Date Status Comme nts Flu vaccine no Preserv 3 and > Unknown 03/22/2014 Admin istered Influenza Unknown 02/07/2019 Administered Influenza Unknown 01/08/2020 Administered Influenza Unknown 02/25/2023 Administered Social History Alcohol Screen Question Answer Notes Did you have a drink containing alcohol in the p ast year? No Points 0 Interpretation Negative Section Notes: Nonsmoker; no alcohol Nonsmoker; no alcohol Nonsmoker; no alcohol Nonsmoker; no alcohol Nonsmoker; no alcohol Nonsmoker; no alcohol Problems Problem Type SNOMED Code ICD Code Onset Dates Problem Status W/U Status Risk Notes Problem 35098664 Epigastric abdominal pain (R10.13) Active confirmed Problem Epigastric pain (09162274) Epigastric pain (R10.13) Active confirmed Problem Gastro-esophage al reflux disease without esophagitis (950313453) Gastro-esophagea l reflux disease without esophagitis (K21.9) Active confirmed Problem 400887521 Abdominal bloating (R14.0) Active confirmed Problem 278842361 Change in bowel habits (R19.4) Active confirmed Problem Atrophic gastritis (84857158) Unspecified chronic gastritis without bleeding (K29.50) Active confirmed Problem Benign neoplasm of stomach (26192261) Polyp of stomach and duodenum (K31.7) Active confirmed Problem 163348794 Celiac disease (K90.0) Active confirmed Problem 93854512 Hiatal hernia (K44.9) Active confirmed Problem 64494384 Constipation, unspecified constipation type (K59.00) Active confirmed Problem Barium swallow abnormal (306767233) Abnormal barium swallow (R93.3) Active confirmed Problem 63869637 Abdominal distention (R14.0) Active confirmed Encounters Encounter Location Date Provider Diagnosis [facility] Outpatient [address] [place] [phone] 09/25/2023 Bella Reyes Hiatal hernia K44.9 ; Unspecified chronic gastritis without bleeding K29.50 ; Polyp of stomach and duodenum K31.7 ; Gastro-esophageal reflux disease without esophagitis K21.9 ; Abnormal CT scan, esophagus R93.3 and Abdominal pain R10.9 [facility] [address] [place] [phone] 09/24/2023 Bella Reyes [facility] [address] [place] [phone] 09/26/2023 Bella Reyes Assessments Encounter Date Diagnosis (ICD Code) Assessment Notes Treatment Notes Treatment Clinical Notes Section Notes 09/25/2023 Unspecified chronic gastritis without bleeding (ICD-10 - K29.50) 09/25/2023 Hiatal hernia (ICD-10 - K44.9) 09/25/2023 Polyp of stomach and duodenum (ICD-10 - K31.7) 09/25/2023 Gastro-esophagea l reflux disease without esophagitis (ICD-10 - K21.9) 09/25/[address] scan, esophagus (ICD-10 - R93.3) 09/25/2023 Abdominal pain (ICD-10 - R10.9) Plan Of Treatment Future Test Test Name Order Date UPPER GI ENDOSCOPY 02/09/2015 UPPER GI ENDOSCOPY 02/01/2020 UPPER GI ENDOSCOPY 09/19/2023 Insurance Providers Payer Name Payer Address Payer Phone Subscriber Number Group Number Insured Name Patient Relationship to Insured Coverage Start Date Coverage End Date [employer] Medicare Adv (PPO) [address] [address] [place] [address] [id number] GINETTE CHAMPION Self - patient is the insured Medical (General) History Medical History History ICD Code Colonoscopy and EGD 8--colon was negative, upper had a moderate-sized HH--no significant esophagitis 1 Small tubular adenoma removed in 2004 Supraventriclar tachycardia treated with ablation and medication--not successful----scheduled for another ablation on 02/21/[address] Rodriguez at [facility] Breast cancer treated with lumpectomy, X RT, and Tamoxifen Denies MD,DM,CVA,Lung disease,renal dise ase Duodenal ulcer in the [...] Dr. Lorenzo Hawley Cleft palate surgery - 1939 [place] 1977 Cholecystectomy Umbilical hernia repair resulting in int estine resection 2015 Toe surgery Lens implant left and right 06/2004 Abdominal wall hernia repair - Dr. Alaina christiansen In 2015 she underwent a diag nostic laparoscopy with enterolysis and repair of a small bowel perforation and with a small bowel resection with Dr. Ortiz Bladder suspension 2001 Cleft palate Redo 1983 Hospitalization History Reason Date(Month/Year)
--- OUTSIDE RECORDS SUMMARY | 2024-09-23 17:44 | XMS_ITS ---
Author Organization [facility] Address [address] [place] [address] Care Team Providers Care Websphere Commerce Architect Name Role Phone Kris Day MD Primary Care Provider Bella Jones Unavailable [phone] REASON FOR VISIT update/pt with questions./ update Encounters Encounter Location Date Provider Diagnosis [facility] [address] [place], [place] [address] [place] [address] 09/26/2023 Bella Reyes Plan Of Treatment No Information Progress Notes * CRYSTAL MOCTEZUMA MDOB:[birth year] (83 yo F)Acc No.[id number]:09/26/2023 Patient:?CRYSTAL MOCTEZUMA :1940???Age:83 Y???Sex:Female [address], [address], [place] [address] Subjective: * Chief Complaints: * ???Update/pt with questions. / update * Medical History:? * Surgical History:? * Hospitalization/Major Diagno stic Procedure:? * Medications:? Objective: Assessment: Plan: * Treatment: * Procedure Codes:? * true * Date:? Generated for Printi young/Facarlitog/eTransmitting on:?09/23/2024 05:43 PM EDT
--- OUTSIDE RECORDS SUMMARY | 2024-09-23 17:44 | XMS_ITS | Clinical Summary ---
Author Organization [facility] Address [address] [place] [address] Phone Care Team Providers Care Business Reporter Name Role Phone Kris Day MD Primary Care Provider [phone] Allergies Active Allergy Reactions Criticality Noted Date Comments Ciprofloxacin Nausea 11/09/2021 Other reaction(s): digestive system shut down Gluten Meal Other (see comments) 03/11/2023 Other Nausea And Vomiting 11/09/2021 Sulfamethoxazole-Trimeth oprim Vomiting 03/11/2023 Medications traMADol (ULTRAM) 50 MG tablet 02/24/2023 Active torsemide (DEMADEX) 20 MG tablet Take 40 mg by mouth 1 (one) time each day 02/21/2023 Active omeprazole (PriLOSEC) [address] capsule Take by mouth 1 (one) time each day 12/19/2022 Active Eliquis 5 MG tablet Take 5 mg by mouth 02/06/2023 Active Calcium Carbonate-Vitam in D 600-5 MG-MCG tablet Take by mouth 04/22/2013 Active ezetimibe (ZETIA) 10 MG tablet Take 10 mg by mouth 1 (one) time each day 12/20/2022 Active Magnesium 400 MG tablet Take by mouth Active dicyclomine (BENTYL) 10 MG capsule Take 10 mg by mouth 4 (four) times a day (before meals and nightly) Active aspirin (ST ALISA) 81 MG EC tablet Take 81 mg by mouth 1 (one) time each day Active Multiple Vitamin (MULTIVITAMIN ADULT PO) Take by mouth Active b complex vitamins capsule Take 1 capsule by mouth 1 (one) time each day Active Ascorbic Acid (vitamin C) 500 MG tablet Take 500 mg by mouth 1 (one) time each day Active Active Problems Problem Noted Date Diagnosed Date Chronic constipation 03/11/2023 03/11/2023 Celiac disease 03/11/2023 03/11/2023 Carpal tunnel syndrome 03/11/2023 Calcification of coronary artery 03/11/2023 03/11/2023 Paroxysmal supraventricular tachycardia 03/11/20 23 03/11/2023 Acquired hammer toe of left foot 03/11/2023 03/11/2023 Cystocele 03/11/2023 03/11/2023 Chronic kidney disease 03/11/2023 Overview (03/11/2023): per patient report Diastolic dysfunction 03/11/2023 03/11/2023 Goiter 03/11/2023 03/11/2023 Gastroesophageal reflux disease 03/11/2023 03/11/2023 Ex-heavy cigarette smoker (20-39/day) 03/11/2023 03/11/2023 Hemorrhoid 03/11/2023 03/11/2023 History of malignant neoplasm of breast 03/11/2003/11/2023 Overview (03/11/2023): S/P lumpectomy 1996, treated with 5 years tamoxifen History of partial resection of colon 03/11/2023 03/11/2023 [facility] current use of anticoagulant 03/11/2023 Hypertensive disorder 03/11/2023 03/11/2023 Hyperlipidemia 03/11/2023 03/11/2023 History of total hysterectomy 03/11/2023 Lung mass 03/11/2023 03/11/2023 Osteoarthritis of knee 03/11/2023 Obstructive sleep apnea syndrome 03/11/2023 03/11/2023 Overview (03/11/2023): Unable to tolerate CPAP Osteoporosis 03/11/2023 03/11/2023 Sensorineural hearing loss of bilateral ears 08/202203/11/2023 Polyp of colon 03/11/2023 03/11/2023 Stage 3a chronic kidney disease 03/11/2023 Renal osteodystrophy 03/11/2023 Arthritis of left knee 11/11/2022 Pain of left knee joint 11/11/2022 03/11/20 Trochanteric bursitis of right hip 11/11/2022 03/11/2023 Encounters Date Type Department Care Team Description 07/14/2024 1:00 PM EST Office Visit [facility] [address] [place] [address] Dandy Newby MD Stage 3a chronic kidney disease (HCC) (Primary Dx); Renal osteodystrophy 07/08/2024 Travel from Last 3 Months Immunizations Immunization Administration Dates Next Due DTaP 03/15/2015 Influenza Whole 03/05/2021,01/28/2020,02/12/2019 ,03/10/2008 Moderna SARS-COV-2 09/24/2021 Pfizer SARS-COV-2 07/25/2020,07/03/2020 Pneumococcal Conjugate 13-Valent 02/25/2019,09/0 02/2016 Pneumococcal Polysaccharide 03/15/2015 Shingrix 03/09/2007 Td, Unspecified 03/08/2019 Zoster 07/18/2008 Family History Medical History Relation Comments Diabetes Father Cancer Mother Diabetes Mother Relation Status Comments Father Mother Social History Tobacco Use Types Packs/Day Years Used Date Smoking Tobacco: Never Smokeless Tobacco: Never Tobacco Cessation:Counseling Given: Not Answered Alcohol Use Standard Drinks/Week Comments Never 0 (1 standard drink = 0.6 oz pur e alcohol) Comments Unknown Sex and Gender Information Value Date Recorded Sex Assigned at Not on file Legal Sex Female 9:28 AM EDT Gender Identity Not on file Sexual Orientation Not on file Last Filed Vital Signs Vital Sign Reading Time Taken Comments Blood Pressure 122/72 07/14/2024 12:59 PM EST Pulse 65 07/21/2023 3:06 PM EST Temperature - - Respiratory Rate - - Oxygen Saturation 98% 07/14/2024 12:59 PM EST Inhaled Oxygen Concentration - - Weight 72.1 kg (159 lb) 07/14/2024 12:59 PM EST Height - - Body Mass Index - - Plan of Treatment Upcoming Encounters Date Type Department Care Team (Late st Contact Info) Description 07/13/2025 1:45 PM EST Office Visit [facility] [address] [facility] [address] [place] [address] Dandy Newby MD [address] [address] Health Maintenance Due Date Last Done Comments Influenza Vaccine (Season Ended) 2025 03/05/2021, 01/28/2020, 02/12/2019, Additional history exists Pneumococcal Vaccine: 50+ Years Completed 02/25/2019, 02/16/2016, 03/15/2015 Hepatitis B Vaccine Aged Out No longe r eligible based on patient's age to complete this topic Insurance [facility] Medicare [facility] Medicare Care Teams Business Reporter Relationship Specialty Start Date End Date Kris Day MD [id number] [place] PCP - General Internal Medicine 11/13/22
--- OUTSIDE RECORDS SUMMARY | 2024-09-23 17:45 | XMS_ITS | Patient Health Record ---
Author Organization [facility] Address [address] [facility] [place] [address] Care Team Providers Care Pediatric Psychiatrist Name Role Phone Kris Day MD Primary Care Provider Linwood Tirnidad Unavailable [phone] Allergies Allergen (clinical drug ingredient) Drug/Non Drug [...] day Not-Taking Alendronate Sodium 70 MG (Prior Auth#:[id number] ) Oral for 28 Not-Taking PreserVision AREDS [...] primary osteoarthritis of the ankle and/or foot (380836507) Primary osteoarthrit is, left ankle and foot (M19.072) Active confirmed Problem Acquired hammer toe of left foot (6105012193340637) Other hammer toe(s) (acquired), left foot (M20.42) Active confirmed Vital Signs Blood pressure diastolic 64 mm Hg 02/18/2024 Height 5 ft 6 in in 02/18/2024 Blood pressure systolic 122 mm Hg 02/18/2024 Weight 158 lbs 02/18/2024 BMI 25.50 kg/m2 02/18/2024 Encounters Encounter Location Date Provider Diagnosis [facility] [address] [place] [address] 02/18/2024 Linwood Dhaliwal Ingrowing nail L60.0 ; [...] X ray : Foot, left 3V 05/06/2022 25129-Qzljcvcx Plate 05/21/2018 42122-Ztmqamnr Plate 01/06/2014 43884-Ilagheng Plate 12/12/2015 79312- Debride <25 sq cm 12/27/2015 77952- Debride <25 sq cm 01/20/2014 11771- Debride <25 sq cm 01/08/2012 32628- Debride <25 sq cm 03/23/2012 20171- Debride <25 sq cm 12/13/2011 35135- Debride <25 sq cm 12/19/2011 47227- Debride <25 sq cm 12/12/2011 59750- Debride <25 sq cm 07/08/2011 45067- Debride <25 sq cm 09/16/2011 90234- Debride <25 sq cm 11/11/2011 74037- Debride <25 sq cm 12/04/2011 33633-LLDHFLTA OF HEMATOMA/FLUID 019 18052,[id number] TENDON SHEATH/LIGAMENT 0 08/09/2020 12218, J0702- Neuroma/Injection 08/10/19 21 92510- Nail Unit Biopsy 01/07/2018 Next Appt Details Provider Name:Ramona isaacs, 12/01/2024 09:15:00 AM, [address] [place], [address], Insurance Providers Payer Name Payer Address Payer Phone Subscriber Number Group Number Insured Name Patient Relationship to Insured Coverage Start Date Coverage End Date [employer] Medicare [id number] [address] [address] [place] [address] [id number] Ginette Champion Self - patient is the insured Medical (General) History Medical History History ICD Code thyroid disorder mumps measles chicken pox cancer back, hip, knee pain Arthritis celiac disease Surgical History Surgery Date(Month/Year) breast tumor removal 1997 cholecystectomy 1985 colon resection 1985 hysterectomy 1979 lens implant OD, OS 2004 hammer toe 2011 heart surgery unspecified Cardio Version 02/2020,04/2020 Hospitalization History Reason Date(Month/Year) [facility] [place] for a Heart Procedure 04/2015 [facility] [place] for Surgery for perforated bowel 12 days 03/2016-04/2016
== END 2024-09-23 15:45 | disposition home or self-care (01) ==
LOC: HO.HMCHD 14:53
PROVIDERS: PCP Internal Medicine; Visit Provider Internal Medicine
DX: I48.11 Longstanding persistent atrial fibrillation (principal); E78.00 Pure hypercholesterolemia, unspecified; K21.9 Gastro-esophageal reflux disease without esophagitis

== ENCOUNTER → 2024-09-23 14:53 | Outpatient (BNVA) | payer MEDICARE, SELFPAY | PROVIDERS: PCP Internal Medicine; Visit Provider Internal Medicine | DX: I48.11 Longstanding persistent atrial fibrillation (principal); E78.00 Pure hypercholesterolemia, unspecified; E55.9 Vitamin D deficiency, unspecified; K21.9 Gastro-esophageal reflux disease without esophagitis; I10 Essential (primary) hypertension; Z79.01 Long term (current) use of anticoagulants; Z79.899 Other long term (current) drug therapy | CPT/HCPCS: 96127; 99202 ==

== ENCOUNTER 2024-12-17 12:25 | Outpatient (REF) | payer MEDICARE, SELFPAY ==
--- OUTSIDE RECORDS SUMMARY | 2023-09-25 11:10 | XMS_ITS ---
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 9 ; Unspecified chronic gastritis without bleeding K29.50 ; Polyp of stomach and duodenum K31.7 ; Gastro-esophageal reflux disease without esophagitis K21.9 ; Abnormal CT scan, esophagus R93.3 and Abdominal pain R10.9 Assessments Encounter Date Diagnosis (ICD Code) Assessment Notes Treatment Notes Treatment Clinical Notes Section Notes 09/25/2023 Hiatal hernia (ICD-10 - K44.9) 09/25/2023 Unspecified chronic gastritis without bleeding (ICD-10 - K29.50) 09/25/2023 Polyp of stomach and duodenum (ICD-10 - K31.7) 09/25/2023 Gastro-esophagea l reflux disease without esophagitis (ICD-10 - K21.9) 09/25/[address] scan, esophagus (ICD-10 - R93.3) 09/25/2023 Abdominal pain (ICD-10 - R10.9) Plan Of Treatment No Information Progress Notes * CRYSTAL MOCTEZUMA MDOB:[birth year] (84 yo F)Acc No.[id number]:09/25/2023 EGD/MAC Patient: CRYSTAL MORALES Provider: Michael Reyes MD :1940 A ge:83 Y S ex:Female Date:09/25/2023 Address:[address] [place] [address], [address], [facility] [place] Pcp:Kris Day MD Subjective: * Chief Complaints: * 1 . Epigastric pain, hiatal hernia, abnormal barium swallow. * Medical History: Objective: * Vitals: Assessment: * Assessment: 1. H iatal hernia - K44.9 (Primary) 2 . U nspecified chronic gastritis without bleeding - K29.50 3 . P olyp of stomach and duodenum - K31.7 ?4. G lissa-esophageal reflux disease without esophagitis - K21.[address] scan, esophagus - R93.3 6 . A bdominal pain - R10.9 Plan: * Treatment: * Procedure Codes: 4 3239 UPPER GI ENDOSCOPY, BIOPSY * * The named appointment provid er may or may not be the originator of this progress note, and it is not deemed complete until electronically signed by the appointment provider. Sign off status: Pending * Provider: Michael Reyes MD Date: 0 09/25/2023 Generated for Abdoul vidal/Yandy/Colbyitting on: 0 12/17/2024 12:32 PM EDT
--- OUTSIDE RECORDS SUMMARY | 2024-12-17 12:32 | XMS_ITS | Data Portability ---
Author Organization [place] [facility] [place] Address [address] [place] [address] Care Team Providers Care Grants Analyst Name Role Phone GRIFFIN SANDERS Primary Care Provider GRIFFIN SANDERS Referring Provider [phone] Assessment Encounter Date Assessment Date Assessment LastModified by Organization Details LastModified Time 07/15/2024 07/15/2024 83-year-old female with left knee [...] patient was seen and evaluated by Ernst Moran MS, PA-C in indirect conjunction with documenting/super vising provider Hermann Ramirez MD. He agrees with history, physical examination, tests/diagnostic imaging, and treatment plan. This document was generated using voice recognition software. As a result, there may be unintended spelling, grammatical and/or textual errors. Not available 07/15/2024 10:37:37 09/28/2024 09/28/2024 84-year-old female with left knee pain secondary to osteoarthritis. At present moment, her symptoms are well-controlled following a July cortisone injection. We have talked about the potential for recurrence which could necessitate a repeat injection. Follow-up with me will be as needed. A follow-up visit will be scheduled with a member of our foot and ankle team to evaluate her Achilles complaint. This patient was seen and evaluated by Ernst Moran MS, PA-C in indirect conjunction with documenting/super vising provider Hermann Ramirez MD. He agrees with history, physical examination, tests/diagnostic imaging, and treatment plan. This document was generated using voice recognition software. As a result, there may be unintended spelling, grammatical and/or textual errors. [email or web address] Not available 09/28/2024 14:51:39 10/14/2024 10/14/2024 We discussed today his diagnosis of left-sided insertional Achilles tendinitis. We discussed nonoperative management including wearing a boot, tendon rest, anti-inflammatori es, physical therapy, stretching, treatments like EPAT, dry needling, or laser treatments, and ultimately surgical intervention. Will begin initial management with physical therapy and a heel wedge for her footwear. We decided against a cam boot as she is currently battling knee osteoarthritis and may would like to avoid aggravating this pain. She will follow-up in 1 month for repeat assessment or sooner if needed. Patient was seen and evaluated by Gibran Hull PA-C in indirect conjunction with Documenting Provider: Kayley Romero MD He/She agrees with history, physical examination, tests/diagnostic imaging, and treatment plan Not available 10/14/2024 10:00:21 11/11/2024 11/11/2024 She has made great progress with physical therapy in regards to her Achilles tendinitis. She will continue with her scheduled physical therapy sessions. She will continue with her home exercises. She will follow-up in 6 weeks for progress check. Patient was seen and evaluated by Gibran Hull PA-C in indirect conjunction with Documenting Provider: Kayley Romero MD He/She agrees with history, physical examination, tests/diagnostic imaging, and treatment plan [email or web address] Not available 11/11/2024 10:23:26 12/09/2024 12/09/2024 HPI : Patient is here today with complaints of right knee pain. The patient is experiencing right knee pain, which is moderate in intensity, and has recently worsened. The pain limits some activities of daily living. Walking tolerance is reduced. Pain and restriction of function are moderately reduced. She was seen by Tomasz Sifuentes 3 weeks ago. He did aspiration which was sent for workup which was negative for infection. He also did cortisone injection. This brought significant relief. Review of systems is negative for other rapidly progressive neurological disorder, chest pain, shortness of breath, fevers, chills, or any signs of active or persistent local or systemic infection. Physical Exam : Patient is well nourished, well-developed, in no acute distress, with appropriate mood and affect. The patient is oriented to time, place, and person. Examination of the contralateral knee shows normal range of motion, strength, no tenderness, and intact skin. The affected limb is well-perfused, without skin lesions, shows a grossly normal motor and sensory examination. Right knee motion is reduced and does cause significant pain. The right knee moves from 5-1 20 degrees. The knees are stable within those [id number]. The alignment of the right knee is varus . Muscle strength is normal. Pedal pulses are palpable. Hip examination, including flexion and internal rotation, was negative in that groin pain was not produced. Radiographs of the right knee from November 2024 demonstrate degenerative joint disease with joint space narrowing, osteophyte formation, and subchondral sclerosis. Assessment/Plan : The patient has right knee arthritis. An extensive discussion was conducted on the natural history of the disease and the variety of surgical and non-surgical options available to the patient including, but not limited to non-steroidal anti-inflammatory medications, steroid injections, viscosupplementat ion, physical therapy, maintenance of ideal body weight, and reduction of activity. She had good relief from the cortisone injection by Tomasz Sifuentes 3 weeks ago. She will continue conservative management for now. Her preference is to follow-up as needed so she will call when symptoms worsen. [email or web address] Not available 12/09/2024 11:21:59 Plan of Treatment Reminders Order Date Submit Date Provider Last Modified By Organization Details Last Modified Time Details Appointments FOLLOW UP 2024 10:30A M Gibran Hull PA-C Not available Not available Not available Lab None recorded. Referral None recorded. Procedures None recorded. Surgeries None recorded. Imaging XR, ankle, 3 or more view 2024 025 acosta [facility], [address], [place], [address], 10/14/2024 10:12:58 XR, knee, 4 or more view 2024 025 [facility], [address], [place], [address], 07/15/2024 11:16:25 Medication Orders Marcaine (PF) 0.5 % (5 mg/mL) injection solution 2024 025 [email or web address] [facility]/Pharmacy #[id number], [address] [place], [address], 12/09/2024 10:44:13 lidocaine (PF) 100 mg/5 mL (2 %) injection syringe [address]/Pharmacy #[id number], [address] [place], [address], 07/15/2024 11:16:25 triamcino lone acetonide 40 mg/mL suspensio n for injection [address]/Pharmacy #[id number], [address] [place], [address], 07/15/2024 11:16:25 Patient TargetsNo targets recorded. Patient Instructions Encounter Date Encounter Id Patient Instructions Last Modified By Organization Details Last Modified Time 07/15/2024 [id number] 7 view X-ray juanis dy obtained during today's office encounter show evidence of severe left knee osteoarthritis. There is joint space narrowing, subchondral sclerosis and marginal osteophytosis. Kellgren-Raciel grade 3. No evidence of acute fracture or osteolytic findings. The predominance of her wear is at the patellofemoral joint. These x-rays are compared to a study done on 11/11/2022 and showed no significant interval change. [email or web address] Not available 07/15/2024 10:14:34 Reason for Referral None Reported. Results Created Date Observation Date Name Description Value Unit Range Abnormal Flag Note LastModifiedBy Organization Detail LastModifiedTime Result Notes None recorded. Problems Name Problem SNOMED Code Status Onset Date Resolution Date Notes Provider Name and Address Organization Details Recorded Time Osteoarthri tis of left knee joint 5565432566795 09 Active 2024 ERNST MORAN PA-C [address], [place], [address], [place] [facility], [facility] 5 10:12:25 Left Achilles tendinitis 9821561172163 02 Active 2024 GIBRAN HULL PA-C [address], [place], [address], [place] [facility], [facility] 5 09:59:41 Effusion of joint of right knee 9974203669399 04 Active 2024 ALISA SIFUENTES PA-C [address], [place], [address], [place] [facility], [facility] 5 10:44:29 Osteoarthri tis of right knee joint 7777548651239 00 Active 2024 Hermann Ramirez MD [address], [place], [address], [place] [facility], [facility] 5 11:19:31 Pain of right knee region 0427198446401 05 Active 2024 ALISA SIFUENTES PA-C [address], [place], [address], [place] [facility], [facility] 5 17:13:32 Pain of left knee joint 4613061883440 07 Active 2022 ERNST MORAN PA-C [address], [place], [address], [place] [facility], [facility] 3 09:16:19 Trochanteri c bursitis of right hip 6111513596358 00 Active 2022 ERNST MORAN PA-C [address], [place], [address], [place] [facility], [facility] 3 09:16:22 Arthritis of left knee 6957286310297 104 Active 2022 ERNST MORAN PA-C [address], [place], [address], [place] [facility], [facility] 3 09:16:24 Problem Notes None recorded. Procedures Surgical History Date Name Laterality Status Provider Name and Address Organization Details Recorded Time 5 HEIDY Knee Inj/Asp active ALISA SIFUENTES PA-C [address], [place], [address], [place] [facility], [facility] 12/16/2024 17:12:18 5 MJG Knee injection w/US completed ERNST MORAN PA-C [address], [place], [address], [place] [facility], [facility] 07/15/2024 10:12:10 3 MJG Knee injection w/US completed ERNST MORAN PA-C [address], [place], [address], [place] [facility], [facility] 11/25/2022 10:35:31 3 MJG GT injection completed ERNST MORAN PA-C [address], [place], [address], [place] [facility], [facility] 11/11/2022 09:17:28 Imaging Results None recorded. [...] Not available Not available Not available 11/11/2022 [id number] SNOMED Lyle Aguirre null, [facility], P 3 09:03:25 4751 Cipro medicatio n Not available Not available Not available 11/11/2022 [id number] RxNorm Lyle Aguirre null, [facility], P 3 09:03:31 4752 wheat gluten extract food Not available Not available Not available 11/11/2022 [id number] RxNorm Lyle Aguirre null, [place] [facility], [facility] 3 09:03:37 Medications Name Sig Start Date Stop Date Status Note LastModified by Organization Details LastModified Time fluconazole 100 mg tablet TAKE 1 TABLET BY MOUTH ONCE A DAY active Not Available Not Available No t Available clotrimazol e 10 mg av USE 1 AV 3 TIMES DAILY active Not Available Not Available [...] injection Take 40 mg by injection route. 12/08 completed Not Available Not Available Not Available omeprazole 20 mg capsule,del ayed release TAKE 1 CAPSULE BY MOUTH EVERY DAY active Not Available Not Available No t Available allopurinol 300 mg tablet TAKE 1 TABLET BY MOUTH DAILY 12/08 completed Not Available Not Available Not Available albuterol sulfate HFA 90 mcg/actuati on [...] A DAY WITH MEALS FOR 10 DAYS 12/08 completed Not Available Not Available Not Available tobramycin 0.3 %-dexametha sone 0.1 % [...] solution Take 4 mL by injection route. 12/08 completed Not Available Not Available Not Available lidocaine (PF) 100 mg/5 mL (2 %) injection syringe Take 4 mL by injection route. 12/08 completed Not Available Not Available Not Available Eliquis 5 mg tablet TAKE 1 TABLET BY MOUTH TWICE A DAY active Not Available Not Available No t Available Paxlovid 300 mg (150 mg x 2)-100 mg tablets in a dose pack TAKE 3 TABLETS BY MOUTH TWICE A DAY FOR 5 DAYS 07/15 completed Not Available Not Available Not Available Vitals Date Recorded Body weight Body mass index (BMI) Body height Provider Name and Address Organization Details Last Updated DateTime 09/28/2024 00289.03 g 27.2 kg/m2 172.[address] [place] [facility] 09/28/2024 14:20:39 Date Recorded Body height Body mass index (BMI) Body weight Provider Name and Address Organization Details Last Updated DateTime 10/14/2024 172.72 cm 27.2 kg/m2 45255.03 g [facility] [place] [facility] 10/14/2024 09:45:06 Date Recorded Body height Body mass index (BMI) Body weight Provider Name and Address Organization Details Last Updated DateTime 11/11/2024 172.72 cm 27.2 kg/m2 19902.[address] [facility] [place] [facility] 11/11/2024 10:15:34 Date Recorded Body height Body mass index (BMI) Body weight Provider Name and Address Organization Details Last Updated DateTime 11/15/2024 167.64 cm 25.5 kg/m2 [address]163.[address] [place] [facility] 11/15/2024 10:35:43 Date Recorded Body height Body mass index (BMI) Body weight Provider Name and Address Organization Details Last Updated DateTime 12/09/2024 167.64 cm 25.3 kg/m2 [address] [place] [facility] 12/09/2024 10:44:22 Social History Question Answer Notes LastModified by JiaThis Details LastModified Time Tobacco Smoking Status Former Smoker [place], [place] - [facility] 11/11/2022 09:04:02 When Did You Quit Smoking? 16+yearssinc elastcigaret te [email or web address] Information not available 11/11/2022 How Many Years Have You Smoked Tobacco? 20 [email or web address] Information not available 11/11/2022 Sex: Unknown Functional Status Question Answer Note LastModified by Night Zookeeperizat Novinda Details LastModified Time Do you use any illicit or recreational drugs? No [email or web address] Information not available 11/11/2022 Do you or have you ever used any other forms of tobacco or nicotine? No [email or web address] Information not available 11/11/2022 What is your level of alcohol consumption? None [email or web address] Information not available 11/11/2022 Mental Status None recorded. Family History Relationship Description Onset Age of this Age Resolved Age Notes LastModified by Organization Details LastModified Time Mother Arthritis [email or web address] Not avai lable 11/11/2022 09:04:43 Mother Diabetes mellitus [email or web address] Not available 10/2022 09:04:52 Mother Heart disease [email or web address] Not available 10/2022 09:05:03 Mother Hyperlipidem ia [email or web address] Not available 10/2022 09:05:12 Mother Hypertensive disorder [email or web address] Not available 10/2022 09:05:20 Father Diabetes mellitus [email or web address] Not available 10/2022 09:04:52 Father Heart disease [email or web address] Not available 10/2022 09:05:03 Medical History Condition Response Coronary Artery Disease N Gout Y Hyperthyroidism N MRSA N Blood Transfusion N Emphysema N Hypothyroidism N Depression N COPD N Pacemaker Y Vascular Disease N Gastrointestinal Disease Y Anxiety Disorder N Autoimmune disease N Arthritis Y Cancer Y Stroke N High Cholesterol N Neurologic Disorder N Liver Disease N Organ Transplant N Rheumatoid Arthritis N Arrhythmia N Fibromyalgia N Kidney Disease Y Allergies/Hayfever N Adverse Reaction to Anesthesia N Thyroid Problems N Anemia N Brain Injury N Heart Attack (AK) N Osteopenia Y Diabetes N Bleeding Disorder N Seizures/Epilepsy N AIDS/HIV N Congestive Heart Failure (CHF) Y Asthma N Amputation N Reflux/GERD Y Sleep Apnea N Hepatitis N Aneurysm N Heart Disease Y Pulmonary Embolism N Hypertension N Osteoporosis N Gynecological HistoryNo gynecological history recorded. Obstetrics History GPAL:G 0 P 0 0 0 0 Past Encounters Encounter ID Performer Location Encounter Start Date Encounter Closed Date Diagnosis/Indication Diagnosis SNOMED-CT Code Diagnosis ICD10 Code Diagnosis Note [id number] LAWRENCE MARTINmaria elena [address] [place] [address] 11/11/2022 08:48:19 11/11/2022 09:40:18 Pain of left knee joint 2292339992 94493 M25.562 Trochanter ic bursitis of right hip 5895458756 61884 M70.61 Arthritis of left knee 9688213559 833784 M13.862 [id number] [address] [address] 11/25/2022 10:18:33 11/25/2022 10:58:21 Arthritis of left knee 8985240524 993014 M13.862 [id number] LAWRENCE MARTIN [facility] [address] [address] 12/23/2022 13:37:53 12/23/2022 14:15:30 Arthritis of left knee 3440576339 648261 M13.862 Trochanter ic bursitis of right hip 1686747434 16284 M70.61 Diagnosis: R greater trochanter ic bursitis with IT band friction syndrome Evaluate and treat as indicated to reduce pain and to improve mobility, range of motion, and function. Please teach a home exercise plan and incorporat e PT into patient's exercise routine. 2-3 sessions weekly for 6 weeks. [id number] LAWRENCE MARTIN [facility] [address] [address] 07/15/2024 08:44:28 07/15/2024 10:35:10 Arthritis of left knee 8983921639 671116 M13.862 Osteoarthr itis of left knee joint 9472946806 62572 M17.12 [id number] LAWRENCE MARTIN [address] [address] 09/28/2024 14:12:23 09/28/2024 14:54:38 Arthritis of left knee 3666658453 546615 M13.862 [id number] LAWRENCE HERBERT [address] [address] 10/14/2024 09:37:34 10/14/2024 10:12:58 Ankle pain 986955896 M25.572 Left Achil les tendinitis 1596296630 61696 M76.62 [id number] LAWRENCE HERBERT [address] [address] 11/11/2024 10:09:37 11/11/2024 10:25:44 Left Achilles tendinitis 4212803100 02206 M76.62 [id number] MD RADHA Barrios Albia [address] [facility] [address] [place] [address] 12/09/2024 10:11:16 12/09/2024 11:20:35 Osteoarthritis of right knee joint 1734464537 97985 M17.11 Health Concerns Section Related Observation LastModified by Organization Detai ls LastModified Time None Recorded Concern Status LastModified by Organization Details LastModified Time None Recorded Advance Directives Directive None Recorded Payers Insurance Date Sequence Insurance Name Policy Number Policy Wong Covered Member ID Wong Member ID Guarantor Name 09/13/2024 1 [facility] (MEDICARE REPLACEMENT/A DVANTAGE - PPO) [id number] Ginette Champion [id number] Ginette Champion Notes Date Note Type Note Provider Name and Address Organization Details Recorded Time 07/15/2024 text/html 83-year-old yvon hernandez presents with recurrence of left knee pain. She is known to have osteoarthritis of the knee and has been comfortable since a 2022 cortisone injection. However, on s she was pushing somebody in a wheelchair. That person abruptly dropped their feet to the ground causing the wheelchair to stop and this caused a jamming type injury to Ginette's left knee. This has left her with anterior joint discomfort ever since that time. ERNST MORAN PA-C [address] [facility],[address] [place] [address], [address], [place] [facility] 07/15/2024 10:38:11 09/28/2024 text/html 84-year-old yvon hernandez presents for recheck of left knee. She reports that her cortisone injection on 07/15/2024 was highly effective at controlling her pain. She describes it as feeling wonderful and like a miracle. The left knee swells on occasion which causes some feelings of tightness but, overall, the pain is largely resolved. She brings my attention to some issues with the Achilles on the left side. ERNST MORAN PA-C [address], [place], [address], [place] [facility] 09/28/2024 14:52:03 10/14/2024 text/html Ginette Champion is an 84-year-old female who presents today for evaluation of her left ankle. Over the last month she has noticed pain at her Achilles tendon. She believes this began after transitioning from regular footwear to flat shoes for the spring. She initially thought that this may be related to her left knee osteoarthritis however after follow-up with Ernst she was recommended to come to our team for further assessment. Her pain is constant and a 3/10 on average. She denies any specific injuries.She has been taking Tylenol arthritis with moderate relief. Medical history significant for cancer, gout, heart disease, osteoporosis and acid reflux.She is anticoagulated on Eliquis. She has a pacemaker. Former smoker. No alcohol use. GIBRAN HULL PA-C [address], [place], [address], [place] [facility] 10/14/2024 10:02:13 11/11/2024 text/html Ginette Champion is an 84-year-old female who presents today for evaluation of her Achilles tendinitis. Since her last visit she has attended physical therapy for 6 sessions which have been very helpful. She has been performing home exercises and using the heel wedge which she finds to be helpful as well. She no longer has a daily ache. She is so far happy with her progress. From 10/14/24 (TK): Over the last month she has noticed pain at her Achilles tendon. She believes this began after transitioning from regular footwear to flat shoes for the spring. She initially thought that this may be related to her left knee osteoarthritis however after follow-up with Ernst she was recommended to come to our team for further assessment. Her pain is constant and a 3/10 on average. She denies any specific injuries.She has been taking Tylenol arthritis with moderate relief. Medical history significant for cancer, gout, heart disease, osteoporosis and acid reflux.She is anticoagulated on Eliquis. She has a pacemaker. Former smoker. No alcohol use. GIBRAN HULL PA-C [address], [place], [address], [place] [facility] 11/11/2024 10:23:39 OBGyn Episode No OBEpisode recorded.
--- OUTSIDE RECORDS SUMMARY | 2024-12-17 12:32 | XMS_ITS | Patient Health Record ---
Author Organization [facility] Address [address] [place] [address] Care Team Providers Care Sales Representative [employer] Name Role Phone Altagracia Funk Primary Care Provider Ramona Bonilla Unavailable [phone] Linwood Dhaliwal Unavailable [phone] Allergies Allergen (clinical drug ingredient) Drug/Non Drug [...] tablet in the morning Orally Once a day; Duration: 30 day(s) Not-Taking Combivent 18-103 MCG/ACT 2 puffs Inhalation Six times a day Not-Taking Torsemide Active PreserVision AREDS 2 Active Centrum Silver Activ e Metoprolol Succinate 50 MG 1 capsule Orally Once a day Not-Taking Calcium Active Furosemide 20 MG 1 tablet Orally Once a day 20mg in am 20 in pm everyday Not-Taking Eliquis 5 MG Orally twice a day Active Alendronate Sodium 70 MG (Prior Auth#:[id number] ) Oral; Duration: 28 Not-Taking Dicyclomine HCl 10 MG 1 tablet Orally Active Night Splint AFO - L1930 as directed 05/24/2020 Not-Taking Flonase 50 MCG/ACT 2 sprays Nasally Once a day; Duration: 30 day(s) Active Magnesium Not-Taking Ezetimibe 10 MG 1 tablet Oral Once a day Active Physical Therapy . . . 2-3x/week; Duration: 3-4 weeks 06/28/2020 Not-Taking ProAir RespiClick Ac tive Gas Relief Active Simvastatin 20 MG 1 tablet every evening Orally Once a day; Duration: 30 day(s) Not-Taking Magnesium 400 MG 1 capsule with a meal Orally Active Aspirin 81mg daily Not-Jason ing Aspir-81 Active Omeprazole Active MiraLax Active Vitamin B Complex daily Ac tive Oscal 500/200 D-3 Ac tive Vitamin D daily Active Vitamin C daily Active Aciphex 20mg daily Not-Jason ing Walking Boot/Pneumatic As directed Wear Daily; Duration: Until further notice Not-Taking Immunizations Vaccine Route Administration Date Status Comme nts COVID-19 Pfizer BioNTech Vaccine Unknown 02/07/2022 Administered 2020,2020 2020,2021 unsure dates Influenza Unknown 03/09/2024 Administered Social History Tobacco Use: Social History Observation Description Date Details (start date - stop date) Never Smoker NA - NA Tobacco use other than smoking: Question Answer Notes Are you an other tobacco user? No Tobacco Control (Standard) Question Answer Notes Tobacco use: Nonsmoker Additional Findings: Tobacco non-user Current no nsmoker AUDIT-C (Standard) Question Answer Notes Did you have a drink containing alcohol in the p ast year? No Points 0 Interpretation Negative Problems Problem Type SNOMED Code ICD Code Onset Dates Problem Status W/U Status Risk Notes Problem Primary osteoarthriti s, left ankle and foot (M19.072) Active confirmed Problem Acquired hammer toe of left foot (1020579826202 103) Other hammer toe(s) (acquired), left foot (M20.42) Active confirmed Vital Signs Blood pressure diastolic 60 mm Hg 12/01/2024 Height 5 ft 6 in in 12/01/2024 Blood pressure systolic 126 mm Hg 12/01/2024 Weight 158 lbs 12/01/2024 BMI 25.5 kg/m2 12/01/2024 Procedures Procedure Date Ordered Date Performed Result Body Sit e 60364-YYHHOUQ NAIL, 6 OR MORE 12/01/2024 N/A Encounters Encounter Location Date Provider Diagnosis [facility] [address] [place] [address] 02/18/2024 Linwood Dhaliwal Ingrowing nail L60.0 ; Tinea unguium B35.1 ; Pain in right toe(s) M79.674 ; Other hammer toe(s) (acquired), left foot M20.42 and Metatarsalgia, left foot M77.42 [facility] [address] [place] [address] 12/01/2024 Ramona Miller Pain in right toe(s) M79.674 ; Onychomycosis B35.1 and Pain in left toe(s) M79.675 Assessments Encounter Date Diagnosis (ICD Code) Assessment Notes Treatment Notes Treatment Clinical Notes Section Notes 02/18/2024 Ingrowing nail (ICD-10 - L60.0) 12/01/2024 Pain in right toe(s) (ICD-10 - M79.674) 12/01/2024 Onychomycosis (ICD-10 - B35.1) 02/18/2024 Tinea unguium (ICD-10 - B35.1) 02/18/2024 Pain in right toe(s) (ICD-10 - M79.674) 12/01/2024 Pain in left toe(s) (ICD-10 - M79.675) 02/18/2024 Other hammer toe(s) (acquired), left foot [...] X ray : Foot, left 3V 05/06/2022 42488-GURCRFM NAIL, 6 OR MORE 12/01/2024 09746-Mferzcee Plate 05/21/2018 21235-Bpwffrde Plate 01/06/2014 02632-Cljyitce Plate 12/12/2015 93299- Debride <25 sq cm 12/27/2015 32062- Debride <25 sq cm 01/20/2014 36952- Debride <25 sq cm 01/08/2012 97206- Debride <25 sq cm 03/23/2012 72375- Debride <25 sq cm 12/13/2011 77366- Debride <25 sq cm 12/19/2011 74699- Debride <25 sq cm 12/12/2011 69501- Debride <25 sq cm 07/08/2011 42468- Debride <25 sq cm 09/16/2011 44408- Debride <25 sq cm 11/11/2011 66429- Debride <25 sq cm 12/04/2011 94918-ZSQXJUXZ OF HEMATOMA/FLUID 019 77013,S9590-URP TENDON SHEATH/LIGAMENT 0 08/09/2020 65209, J0702- Neuroma/Injection 08/10/19 96986- Nail Unit Biopsy 01/07/2018 Next Appt Details Provider Name:Ramona Caban ferny, 03/03/2025 09:00:00 AM, [address] [place] [address], [phone], Insurance Providers Payer Name Payer Address Payer Phone Subscriber Number Group Number Insured Name Patient Relationship to Insured Coverage Start Date Coverage End Date [employer] Medicare [id number] [address] [address] [place] [address] [id number] Luz MarinasandraGinette Self - patient is the insured Medical (General) History Medical History History ICD Code thyroid disorder mumps measles chicken pox cancer back, hip, knee pain Arthritis celiac disease Surgical History Surgery Date(Month/Year) breast tumor removal 1997 cholecystectomy 1985 colon resection 1985 hysterectomy 1979 lens implant OD, OS 2004 hammer toe 2011 heart surgery unspecified Cardio Version 02/2020,04/2020 Hospitalization History Reason Date(Month/[place] [facility] [place] bowel 12 days 03/2016-04/2016 [facility] for a Heart Procedure 04/2015
--- OUTSIDE RECORDS SUMMARY | 2024-12-17 12:32 | XMS_ITS | Clinical Summary ---
Author Organization [facility] Address [address] [place] [address] Care Team Providers Care Manager [employer] Name Role Phone Kris Day MD Primary Care Provider [phone] Allergies Active Allergy Reactions Criticality Noted Date [...] season) 2024 07/25/2020, 07/03/2020 Influenza Vaccine (#1) 2025 Pneumococcal Vaccine Completed 02/25/2019, 02/16/2016, 03/15/2015 Hepatitis B Vaccines Aged Out No long er eligible based on patient's age to complete this topic RSV Ped < 20 months Aged Out No longe r eligible based on patient's age to complete this topic Care Teams Manager Intranet Relationship Specialty Start Date End Date Kris Day MD [address] [place] [address] Dr [address] [place] [address] PCP - General Cattle Inspector 05/10/22
--- OUTSIDE RECORDS SUMMARY | 2024-12-17 12:32 | XMS_ITS | Clinical Summary ---
Author Organization [facility] Address [address] [place] [address] Phone Care Team Providers Care Supervisor [employer] Name Role Phone Kris Day MD Primary Care Provider [phone] Encounters Date Type Department Care Team Description 11/15/2024 Lab Requisition [facility] Main Lab [address] [place] [address] Marv Sifuentes PA Effusion, right knee from Last 3 Months Surgical History Surgery Date Site/Laterality Comments HYSTERECTOMY 1976 PROCEDURE: HISTORICAL HYSTERECTOMY APPENDECTOMY 1978 PROCEDURE: CA APPENDECTOMY BREAST LUMPECTOMY 1988 Right PROCEDURE: HISTORICAL BREAST LUMPECTOMY BLADDER SUSPENSION 2001 PROCEDURE: HISTORICAL BLADDER SUSPENSION OTHER SURGICAL HISTORY 2018 PROCEDURE: CA BIOPSY THYROID PERCUTANEOUS CORE NEEDLE CARDIAC SURGERY 2016 PROCEDURE: HISTORICAL HEART SURGERY(ASD,VSD,VALVES); COMMENT: Ablation of Heart Node PACEMAKER IMPLANT 2020 PROCEDURE: HISTORICAL PACEMAKER OTHER SURGICAL HISTORY 1995 PROCEDURE: LAPAROSCOPIC INTEST RESECT/ANAST; COMMENT: Right colon volvulus & gallbladder resection OTHER SURGICAL HISTORY 1983 PROCEDURE: CA PALATOPLASTY CLEFT PALATE MAJOR REVJ; COMMENT: Redo OTHER SURGICAL HISTORY 1938 PROCEDURE: CA PALATOPLASTY CLEFT PALATE MAJOR REVJ; COMMENT: Cleft palate & lip repair BLADDER SUSPENSION 2001 PROCEDURE: HISTORICAL BLADDER SUSPENSION HERNIA REPAIR 2015 PROCEDURE: LAPAROSCOPY, INGUINAL HERNIA REPAIR; COMMENT: + intestine resection OTHER SURGICAL HISTORY 2016 PROCEDURE: CA UNLISTED PROCEDURE CARDIAC SURGERY; COMMENT: Cardiac Abalation OTHER SURGICAL HISTORY 2020 PROCEDURE: CA INS NEW/RPLC PRM PACEMAKER W/TRANSV ELTRD VENTR OTHER SURGICAL HISTORY 11/18/2023 N/A PROCEDURE: CA LAPS RPR PARAESPHGL HRNA INCL FUNDPLSTY W/MESH [...] hy perlipidemia Knee osteoarthritis DX: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 current use of anticoagulant DX:group home current use of anticoagulant Nodule of right lung DX:Nodule o f right lung Observed sleep apnea DX:Observed sleep apnea; COMMENT: unable to tolerate CPAP Osteoporosis DX:Osteoporosis Paroxysmal SVT (supraventric ular tachycardia) (CMS/HCC V24) DX:Paroxysmal SVT (supraven tricular tachycardia) ([facility]) Thyroid goiter DX:Thyroid goite r History of [...] AM EDT Appointment [facility] at [address] [address] Health Maintenance Due Date Last Done Comments DTaP,Tdap,and Td Vaccines (1 - Tdap) 1957 Zoster Vaccines (1 of 2) 1957 Pneumococcal Vaccine: 50+ Years (1 of 1 - PCV) 1988 RSV Immunization Adult Patients (1 - 1-dose 75+ series) 2013 COVID-19 Vaccine (3 - Pfizer risk series) 08/22/2020 07/25/2020, 07/03/2020 Cholesterol Screening (Lipid Panel) 05/12/2022 Depression Screening 05/12/2022 Falls Risk Assessment 05/12/2022 Medicare Annual Wellness Visit 05/12/2022 Osteoporosis Screening (Bone Density Screening) 05/12/2022 Social Influencers of Health Screening 05/12/2022 Hypertension/CHF/CAD Annual BMP Blood Test 01/02/2024 Influenza Vaccine (#1) 2025 HIB Vaccines Aged Out No longer [...] on patient's age to complete this topic Procedures Procedure Name Priority Date/Time Associated Diagnosis Comments DIFFERENTIAL BODY FLUID Routine 11/15/2024 8:30 AM EDT Effusion, right knee CELL COUNT WITH REFLEX DIFFERENTIAL, BODY FLUID Routine 11/15/2024 8:30 AM EDT Effusion, right knee CRYSTAL IDENTIFICATION, BODY FLUID Routine 11/15/2024 8:30 AM EDT Effusion, right knee CULTURE BODY FLUID WITH GRAM STAIN Routine 11/15/2024 8:30 AM EDT Effusion, right knee from Last 3 Months Results * (ABNORMAL) Cell count with reflex differential, body fluid (11/15/2024 8:30 AM EDT) Body Fluid Source Synovial 11/15/2024 4:13 PM EDT [facility] Body Fluid Clarity Cloudy 11/15/2024 4:13 PM EDT [facility] Body Fluid Color Yellow 11/15/2024 4:13 PM EDT [facility] Body Fluid RBC 1,108(H) 0 - 1 /mm3 LAB HEMETOLOGY METHOD 11/15/2024 4:13 PM EDT [facility] Body Fluid Total Nucleated Cells 7,440(H) <150 /mm3 LAB HEMETOLOGY METHOD 11/15/2024 4:13 PM EDT [facility] Synovial Fluid Structure of right knee region / Unknown 11/15/2024 8:30 AM EDT 11/15/2024 1:27 PM EDT us [facility] BODY FLUIDS AND STOOLS OR DERABLES Final Result [facility] [address] [place] [address], [place] [phone] * Culture body fluid with gram stain (11/15/2024 8:30 AM EDT) Fluid Culture No Growth aerobically/a naerobically after 14 days incubation. 11/29/2024 6:55 AM EDT [facility] Gram Stain Result Moderate WBCs present 11/29/2024 6:55 AM EDT [facility] Gram Stain Result No organisms seen 11/29/2024 6:55 AM EDT [facility] Synovial Fluid Structure of right knee region / Unknown 11/15/2024 8:30 AM EDT 11/15/2024 1:27 PM EDT us [facility] MICROBIOLOGY - GENERAL OR DERABLES Final Result Performing Organization Address City/[facility]/ZIP Co de Phone Number [facility] [address] [place] [address], [place] [phone] * (ABNORMAL) Differential body fluid (11/15/2024 8:30 AM EDT) Fluid Neutrophils 63.0(H) <25.0 % 11/15/2024 5:02 PM EDT [facility] Fluid Lymphocytes 7.0 <75.0 % 11/15/2024 5:02 PM EDT [facility] Fluid Monocytes/Macrop hages 30.0 <70.0 % 11/15/2024 5:02 PM EDT [facility] Synovial Fluid Structure of right knee region / Unknown 11/15/2024 8:30 AM EDT 11/15/2024 1:27 PM EDT us [facility] BODY FLUIDS AND STOOLS OR DERABLES Final Result [facility] [address] [place] [address], [place] [phone] * (ABNORMAL) Crystal identification, body fluid (11/15/2024 8:30 AM EDT) Crystals, Fluid Calcium Pyrophospha te(A) Absent 11/15/2024 4:04 PM EDT [facility] Synovial Fluid Structure of right knee region / Unknown 11/15/2024 8:30 AM EDT 11/15/2024 1:27 PM EDT [facility] BODY FLUIDS AND STOOLS OR DERABLES Final Result [facility] [address] [place] [address], [place] [phone] from Last 3 Months Insurance [facility] MEDICARE Care Teams Supervisor [employer] Relationship Specialty Start Date End Date Kris Day MD [address] [place] [address] Dr Angelica [place] PCP - General 05/10/22
--- OUTSIDE RECORDS SUMMARY | 2024-12-17 12:32 | XMS_ITS | Clinical Summary ---
Author Organization [facility] Address [address] [place] [address] Phone Care Team Providers Care Tow Feeder Name Role Phone Kris Day MD Primary Care Provider [phone] Allergies Active Allergy Reactions Criticality Noted Date [...] of partial resection of colon 03/11/2023 03/11/2023 retirement current use of anticoagulant 03/11/2023 Hypertensive disorder [...] Trochanteric bursitis of right hip 11/11/2022 03/11/2023 Immunizations Immunization Administration Dates Next Due DTaP 03/15/2015 Influenza Whole 03/05/2021,01/28/2020,02/12/2019 ,03/10/2008 Moderna SARS-COV-2 09/24/2021 Pfizer SARS-COV-2 07/25/2020,07/03/2020 Pneumococcal Conjugate 13-Valent 02/25/2019,0902/2016 Pneumococcal Polysaccharide 03/15/2015 Shingrix 03/09/2007 Td, Unspecified [...] Office Visit [facility] [address] [address] Dandy Newby MD [address] [address] Health Maintenance Due Date Last Done Comments Influenza Vaccine (#1) 2025 1, 01/28/2020, 02/12/2019, Additional history exists Pneumococcal Vaccine: 50+ Years Completed 02/25/2019, 02/16/2016, 03/15/2015 Hepatitis B Vaccine Aged Out No longe r eligible based on patient's age to complete this topic Insurance [facility] Medicare [facility] Medicare Care Teams Tow Feeder Relationship Specialty Start Date End Date Kris Day MD [address] DEA NOLAND PCP - General Internal Medicine 11/13/22
--- OUTSIDE RECORDS SUMMARY | 2024-12-17 12:33 | XMS_ITS ---
Author Name [facility] Organization Unknown History of Medication Use Medication Directions Dispensed Refills Start Date End Date Stat us lidocaine (PF) 100 mg/5 mL (2 %) injection syringe Take 4 mL by injection route. 07/15/2024 active lidocaine (PF) 100 mg/5 mL (2 %) injection syringe Take 4 mL by injection route. 07/15/2024 active Marcaine (PF) 0.5 % (5 mg/mL) injection solution Take 4 mL by injection route. 07/15/2024 active Marcaine (PF) 0.5 % (5 mg/mL) injection solution Take 4 mL by injection route. 07/15/2024 active triamcinolone acetonide 40 mg/mL suspension for injection Take 40 mg by injection route. 07/15/2024 active triamcinolone acetonide 40 mg/mL suspension for injection Take 40 mg by injection route. 07/15/2024 active cefdinir 300 mg capsule TAKE 1 CAPSULE BY MOUTH TWICE A DAY 5 completed clarithromycin 500 mg tablet TAKE 1 TABLET (ORAL) EVERY 12 HOURS FOR 10 DAYS FOR INFECTION 5 completed doxycycline hyclate 100 mg tablet TAKE 1 TABLET BY MOUTH TWICE A DAY 5 completed fluconazole 100 mg tablet TAKE 1 TABLET BY MOUTH EVERY DAY 5 completed fluconazole 150 mg tablet TAKE 1 TABLET BY MOUTH EVERY DAY 5 completed fluorouracil 5 % topical cream APPLY TO AFFECTED AREA TWICE A DAY TO RED SCALY AREAS OF SUN DAMAGE ON NOSE MAY GET REDNESS CRUSTING 5 completed meloxicam 15 mg tablet TAKE 1 TABLET BY MOUTH DAILY 5 completed neomycin 3.5 mg/g-polymyxin B 10,000 unit/g-dexameth 0.1 % eye oint APPLY AN APPLICATIONFUL TO THE AFFECTED LIDS AT BEDTIME 5 completed neomycin-polymyxin- hydrocort 3.5 mg/mL-10,000 unit/mL-1 % ear solution INSTILL 5 DROPS INTO THE LEFT EAR 2 TIMES DAILY 5 completed omeprazole 40 mg capsule,delayed release TAKE 1 CAPSULE BY MOUTH TWICE A DAY 5 completed Paxlovid 300 mg (150 mg x 2)-100 mg tablets in a dose pack TAKE 3 TABLETS BY MOUTH TWICE A DAY FOR 5 DAYS 5 completed prednisone 20 mg tablet TAKE 2 TABLETS EVERY DAY BY ORAL ROUTE IN THE MORNING FOR 4 DAYS. 5 completed promethazine-DM 6.25 mg-15 mg/5 mL oral syrup TAKE 5 ML (ORAL) EVERY 6 HOURS NEEDED FOR COUGH 5 completed tobramycin 0.3 %-dexamethasone 0.1 % eye drops,suspension INSTILL 1 DROP INTO BOTH EYES 3 TIMES A DAY 5 completed albuterol sulfate HFA 90 mcg/actuation aerosol inhaler TAKE 2 PUFFS INHALED EVERY 4 TO 6 HOURS NEEDED FOR SHORTNESS OF BREATH active albuterol sulfate HFA 90 mcg/actuation aerosol inhaler TAKE 2 PUFFS INHALED EVERY 4 TO 6 HOURS NEEDED FOR SHORTNESS OF BREATH active allopurinol 300 mg tablet TAKE 1 TABLET BY MOUTH DAILY active allopurinol 300 mg tablet TAKE 1 TABLET BY MOUTH DAILY active amoxicillin 875 mg-potassium clavulanate 125 mg tablet TAKE 1 TABLET BY MOUTH TWICE A DAY WITH MEALS FOR 10 DAYS active amoxicillin 875 mg-potassium clavulanate 125 mg tablet TAKE 1 TABLET BY MOUTH TWICE A DAY WITH MEALS FOR 10 DAYS active clotrimazole 10 mg av DISSOLVE 1 AV IN MOUTH 3 TIMES A DAY active dicyclomine 10 mg capsule TAKE 1-2 CAPSULES BY MOUTH EVERY 6 HOURS NEEDED FOR ABDOMINAL CRAMPS/DISCOMFORT 30 active doxycycline hyclate 100 mg tablet TAKE 1 TABLET BY MOUTH TWICE A DAY active Eliquis 5 mg tablet TAKE 1 TABLET BY MOUTH TWICE A DAY active Eliquis 5 mg tablet TAKE 1 TABLET BY MOUTH TWICE A DAY active ezetimibe 10 mg tablet TAKE 1 TABLET BY MOUTH EVERY DAY active fluorouracil 5 % topical cream APPLY TO AFFECTED AREA TWICE A DAY TO RED SCALY AREAS OF SUN DAMAGE ON NOSE MAY GET REDNESS CRUSTING active metoclopramide 10 mg tablet TAKE 1 TABLET BY MOUTH TWICE A DAY active metoclopramide 10 mg tablet TAKE 1 TABLET BY MOUTH TWICE A DAY active omeprazole 20 mg capsule,delayed release TAKE 1 CAPSULE BY MOUTH EVERY DAY active omeprazole 40 mg capsule,delayed release TAKE 1 CAPSULE BY MOUTH DAILY active ondansetron 4 mg disintegrating tablet DISSOLVE 1 TABLET ON TONGUE EVERY 6 HOURS NEEDED FOR NAUSEA AND VOMITTING active ondansetron 4 mg disintegrating tablet DISSOLVE 1 TABLET ON TONGUE EVERY 6 HOURS NEEDED FOR NAUSEA AND VOMITTING active tobramycin 0.3 %-dexamethasone 0.1 % eye drops,suspension active torsemide 20 mg tablet TAKE 2 TABLETS BY MOUTH EVERY DAY active torsemide 20 mg tablet TAKE 2 TABLETS BY MOUTH EVERY DAY active Allergies Allergen Reaction Severity Comment Documented Date Source Statu s CIPRO [facility] GLUTEN [facility] SULFA (SULFONAMIDE ANTIBIOTICS) [facility] Problems Problem Status Onset Date Problem Type Date of Resoluti on Source Pain of left knee joint active 2022-11-11 ProblemAct [facility] Osteoarthritis of left knee joint active 2024-07-15 ProblemAct [facility] Left Achilles tendinitis active 2024-10-14 ProblemAct [facility] Arthritis of left knee active 2022-11-11 ProblemAct [facility] Effusion of joint of right knee active 2024-11-15 ProblemAct [facility] Trochanteric bursitis of right hip active 2022-11-11 ProblemAct [facility] Osteoarthritis of right knee joint active 2024-12-09 ProblemAct [facility] Encounters Encounter Type Encounter Reason Primary Diagnosis Location Date Ambulatory [facility] 12/17/2024 Ambulatory [facility] 12/13/2024 Ambulatory [facility] 12/08/2024 Ambulatory [facility] 11/15/2024 Ambulatory [facility] 11/15/2024 Ambulatory [facility] [place] 11/12/2024 Ambulatory [facility] [place] 11/11/2024 Ambulatory [facility] [place] 10/15/2024 Ambulatory [facility] 10/14/2024 Ambulatory [facility] [place] 10/14/2024 Ambulatory [facility] [place] 09/29/2024 Ambulatory [facility] [place] 09[facility]28/2024 Ambulatory [facility] [place] 09/28/2024 Ambulatory [facility] [place] 09/28/2024 Ambulatory [facility] [place] 09/27/2024 Ambulatory [facility] [place] 09/27/2024 Ambulatory [facility] [place] 09/13/2024 Ambulatory [facility] [place] 07/16/2024 Ambulatory [facility] [place] 07[facility]15/2024 Ambulatory [facility] [place] 07[facility]15/2024 Ambulatory [facility] [place] 01/29/2023 Ambulatory [facility] [place] 12[facility]23/2022 Ambulatory [facility] [place] 12[facility]23/2022 Ambulatory [facility] [place] 12/19/2022 Ambulatory [facility] [place] 11/25/2022 Ambulatory [facility] [place] 11/19/2022 Ambulatory [facility] [place] 11/11/2022 Ambulatory [facility] [place] 11/11/2022 Ambulatory [facility] 09/09/2022
[2024-12-17 12:42] LABS: MANUAL DIFF FLAG NO
[2024-12-17 13:12] LABS: Hematocrit 41.1 % (37.0-47.0); Hemoglobin 13.7 g/dl (12.0-16.0); Imm Gran Abs Auto 0.01 X10*3/uL (0.00-0.03); Imm Gran Pct Auto 0.2 % (0.0-0.4); Lymphocytes Absolute Auto 2.1 X10*3/uL (1.2-4.9); Mean Corpuscular HGB Conc 33.3 g/dl (31.0-35.0); Mean Corpuscular Hemoglobin 29.7 pg (27.0-33.0); Mean Corpuscular Volume 89.0 fL (80.0-98.0); NRBC Abs Auto 0.000 X10*3/uL (0.0-0.012); NRBC Pct Auto 0.0 /100WBC (0.0-0.2); Platelet Count 225 X10*3/uL (160-400); Red Blood Count 4.62 X10*6/uL (4.20-5.50); White Blood Count 5.7 X10*3/uL (4.8-10.8)
[2024-12-17 13:48] LABS: Alanine Aminotransferase 36 U/L (0-31); Albumin Level 4.4 g/dL (3.5-5.0); Alkaline Phosphatase 118 U/L (39-117); Anion Gap 12 (12-20); Aspartate Amino Transferase 34 U/L (5-31); Blood Urea Nitrogen 31 mg/dL (9-16); Calcium 9.8 mg/dL (8.4-10.2); Carbon Dioxide 37 mmol/L (22-29); Chloride 99 mmol/L (96-108); Cholesterol 169 mg/dL (<200); Estimated Glomerular Filt Rate 52; HDL Cholesterol 59 mg/dL (>40); Potassium 5.0 mmol/L (3.3-5.1); Sodium 143 mmol/L (135-145); Total Protein 7.2 g/dL (6.5-8.0); Triglycerides 138 mg/dL (<150)
[2024-12-17 13:52] LABS: Hemoglobin A1C 148.1036 umol/L; Total Hemoglobin (HGBA1C) 3564.2890 umol/L
== END 2024-12-17 12:26 | disposition home or self-care (01) ==
LOC: HO.LAB 12:25
PROVIDERS: PCP Internal Medicine; Visit Provider Internal Medicine
DX: I48.11 Longstanding persistent atrial fibrillation (principal); E78.00 Pure hypercholesterolemia, unspecified; E55.9 Vitamin D deficiency, unspecified; Z13.0 Encounter for screening for diseases of the blood and blood-forming organs and certain disorders involving the immune mechanism; Z13.1 Encounter for screening for diabetes mellitus
CPT/HCPCS: 36415; 80053; 80061; 83036; 85025

== ENCOUNTER 2024-12-30 13:59 | Outpatient (AMB) | payer MEDICARE, SELFPAY ==
--- OUTSIDE RECORDS SUMMARY | 2023-09-25 11:10 | XMS_ITS ---
Author Organization [facility] Address [address] [place] [address] Care Team Providers Care Precision Farming Coordinator Name Role Phone Barb (RETIRED) Kris JOHNSON Primary Care Provide Bella Bejarano Unavailable [phone] REASON FOR VISIT epigastric pain, hiatal hernia, abnormal barium swallow Problems Problem Type SNOMED Code ICD Code Onset Dates Problem Status W/U Status Risk Notes Problem Atrophic gastritis (04023741) Unspecified chronic gastritis without bleeding (K29.50) Active confirmed Problem Benign neoplasm of stomach (35625956) Polyp of stomach and duodenum (K31.7) Active confirmed Problem Gastro-esophagea l reflux disease without esophagitis (175933378) Gastro-esophage al reflux disease without esophagitis (K21.9) Active confirmed Encounters Encounter Location Date Provider [place] [facility] [place] [address] [place] [address] [phone] 09/25/2023 Bella Reyes Hiatal hernia K44. 9 [...] CRYSTAL MOCTEZUMA MDOB:[birth year] (84 yo F)Acc No.[id number]:09/25/2023 EGD/MAC Patient: PANDA MORALESANNE Alfreda Provider: Michael Reyes MD :1940 A ge:83 Y S ex:Female Date:09/25/2023 Address: [employer] [facility], [address], [place], [place] Pcp:Kris Day (RETIRED )MD Subjective: * Chief [...] MD Date: 0 09/25/2023 Generated for Cassidyi young/Yandy/eTmontezsmitting on: 0 12/30/2024 02:03 PM EDT
[2024-12-30 10:36] VITALS: BP 136/64; PULSE 81; RESP 16; O2SAT 97; BMI 26.4
--- NOTE | 2024-12-30 10:36 | MHC.PC.OV ---
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 Accompanied by: Spouse Allergies ciprofloxacin (Ciprofloxacin) Allergy (Severe, Verified 12/30/24 10:36) WHOLE DIGESTIVE SYSTEM SHUT DOWN gluten (GLUTEN) Allergy (Intermediate, Verified 12/30/24 10:36) DIARRHEA Sulfa (Sulfonamide Antibiotics) Allergy (Mild, Verified 12/30/24 10:36) NAUSEA & VOMITING, vomiting Doxycycline Hyclate Allergy (Unknown, Uncoded 09/23/24 14:45) severe thrush gluten Allergy (Unknown, Uncoded 09/23/24 14:45) (+) celiacs cipro Adverse Reaction (Unknown, Uncoded 09/23/24 14:45) n/v sulfa Adverse Reaction (Unknown, Uncoded 09/23/24 14:45) vomiting Tobacco use date assessed: 12/30/24 Fall risk assessment: No Falls in past year Last assessed Fall Risk: 12/30/24 Dental Screening Dental Screen Date: 12/30/24 Did you have a dental visit in the last 12 months?: Yes Did you have a dental problem in the last 6 months where you did not have access to dental care?: No HPI HPI Comments History of Present Illness Details The patient is a 84 year old female with a past medical history of atrial fibrillation, GERD, hyperlipidemia, htn, s/p PPM, ibs, [place] presenting for follow up. CV: on eliquis, zetia, torsemide and ASA. 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 PPM. Reports left side of body more swollen than right, particularly her left leg. She has bilateral varicosities, spider veins. She denies redness, warmth or calf pain. There is no pitting. GERD: on prilosec Follows with [facility], Dr Miller. Colonoscopy: Mammography: scheduled for end january. Carol. ROS see HPI PHYSICAL EXAM: GENERAL: Alert and oriented x 3. NAD EYES: EOMI. Anicteric. HENT: Moist mucous membranes. No scleral icterus. No cervical lymphadenopathy. LUNGS: Clear to auscultation bilaterally. CARDIOVASCULAR: Regular rate and rhythm. No JVD. ABDOMEN: Soft, non-tender +bs EXTREMITIES: Non pitting trace left edema. Non-tender. Spider veins SKIN: No rashes or lesions. Warm. NEUROLOGIC: No focal neurological deficits. CN II-XII grossly intact PSYCHIATRIC: Cooperative. Appropriate mood and affect [facility] Medical History Cataracts, both eyes Kidney disease Hiatal hernia Celiac disease Hyperlipidemia HTN (hypertension) Duodenal ulcer SVT (supraventricular tachycardia) Atrial fibrillation Thyroid nodule Seasonal allergic rhinitis Nodule of upper lobe of right lung Arthritis of right knee GERD (gastroesophageal reflux disease) Vitamin D deficiency Cancer of right breast Diastolic heart failure Pacemaker Surgical History History of colonoscopy (~05/16/14) S/P GODWIN (total abdominal hysterectomy) History of toe surgery Hx of tooth extraction History of bladder suspension procedure Hx of cardiac pacemaker H/O partial resection of colon H/O partial mastectomy History of cardiac radiofrequency ablation History of cholecystectomy History of appendectomy History of hysterectomy Hx of corrected cleft lip and palate Family History Mother No problems noted. Father No problems noted. Social History Housing: House Alcohol intake: never Patient Tobacco Use Status: Former Tobacco user Tobacco use type: Cigarette e-Cigarette/Vaping Use: Never Used Second Hand Smoke Exposure: No service: No Current occupational status: retired Cognitive needs: No Hearing needs: Yes (b/l hearing aids ) Vision needs: Yes ( rx Glasses) Questionnaire PHQ-9 Over the last 2 weeks, how often have you been bothered by any of the following problems? 1. Little interest or pleasure in doing things: not at all 2. Feeling down, depressed, or hopeless: not at all 3. Trouble falling or staying asleep, or sleeping too much: not at all 4. Feeling tired or having little energy: not at all 5. Poor appetite or overeating: not at all 6. Feeling bad about yourself - or that you are a failure or have let yourself or your family down: not at all 7. Trouble concentrating on things, such as reading the newspaper or watching television: not at all 8. Moving or speaking so slowly that other people could have noticed. Or the opposite - being so fidgety or restless that you have been moving around a lot more than usual: not at all 9. Thoughts that you would be better off or of hurting yourself in some way: not at all Total score: 0 Depression Screening Interpretation: Negative Depression Screening Done: Yes 11307 - PHQ-9 Billing: Yes Source: Developed by Drs. Karson Cartwright, Alecia Tobin, Junior Alcaraz and colleagues, with an educational antonio from [employer]. Thrive Questionnaire Date Thrive assessed: 12/30/24 I am a: Patient Within the past 12 months, did the food you bought not last and you didn't have the money to get more?: Never true Within the past 12 months, did you worry whether your food would run out before you got money to buy more?: Never true Do you have trouble paying for medicines?: No Do you have trouble getting transportation to medical appointments?: No Do you have trouble paying your heating and electricity bill?: No Do you have trouble taking care of your child, family member or friend?: No Do you have trouble with day-to-day activities such as bathing, preparing meals, shopping, managing finances, etc.?: No Are you currently unemployed and looking for a job?: No Are you interested in more education?: No THRIVE Score: 0 AUDIT C Alcohol Use Questionnaire (AUDIT-C) 1. How often do you have a drink containing alcohol?: Never 3. How often do you have six or more drinks on one occasion?: Never Total Score: 0 RAFAL-7 AMB Questionnaire RAFAL-7 Date RAFAL - 7 assessed: 12/30/24 Feeling nervous, anxious, or on edge: 0 = Not at all Not being able to stop or control worryin = Not at all Worrying too much about different things: 0 = Not at all Trouble relaxin = Not at all Being so restless that it is hard to sit still: 0 = Not at all Becoming easily annoyed or irritable: 0 = Not at all Feeling afraid as if something awful might happen: 0 = Not at all Total RAFAL-7 score (0-4 normal; 5-9 mild; 10-14 moderate; 15-21 severe): 0 Source: Developed by Drs. Karson Cartwright, Alecia Tobin, Junior Alcaraz and colleagues, with an educational antonio from [employer]. Physical exam (Primary Care) Vital Signs: Last Vital Signs Pulse 81 12/30/24 10:36 Resp 16 12/30/24 10:36 BP 136/64 12/30/24 10:36 Pulse Ox 97 12/30/24 10:36 Oxygen Delivery Method Room Air 12/30/24 10:36 BMI result Body Mass Index 26.4 Tobacco/Smoking Status: Tobacco use Status Tobacco use date assessed 12/30/24 12/30/24 10:37 Patient Tobacco Use Status Former Tobacco user 12/30/24 10:37 Tobacco use type Cigarette 12/30/24 10:37 e-Cigarette/Vaping Use Never Used 12/30/24 10:37 PHQ-9: PHQ-9 Score PHQ-9: Total score 0 12/31/24 09:02 Depression Screening Interpretation: Negative Thrive Assessment: Date of Thrive Assessment Date Thrive assessed 12/30/24 12/30/24 10:37 Coding Level of Care Code Est Pt Level 4 (88078) Complex EM visit Add On G2211 Diagnoses Chronic diastolic heart failure I50.32 Heart failure chronicity: chronic Longstanding persistent atrial fibrillation I48.11 Atrial fibrillation type: longstanding persistent Localized edema R60.0 Edema type: localized Additional Codes PHQ-9 - 82824 - PHQ-9 Billing: Yes ([id number]) Assessment & Plan Assessment & Plan (1) Diastolic heart failure: Code(s): I50.30 - Unspecified diastolic (congestive) heart failure Category: Medical Qualifiers: Heart failure chronicity: chronic Qualified Code(s): I50.32 - Chronic diastolic (congestive) heart failure (2) Atrial fibrillation: Code(s): I48.91 - Unspecified atrial fibrillation Category: Medical Qualifiers: Atrial fibrillation type: longstanding persistent Qualified Code(s): I48.11 - Longstanding persistent atrial fibrillation (3) Edema: Code(s): R60.9 - Edema, unspecified Qualifiers: Edema type: localized Qualified Code(s): R60.0 - Localized edema Plan 84 year old for follow up CHF, HTN-needs new primary principal web developer. Will refer to [facility] since she is seeing EP there LE non pitting swelling L>R-likely venous insufficiency-ultrasound & referral to vascular Orders: Orders US venous insuf bilat 12/30/24 M79.89 - Other specified soft tissue disorders Referrals Cardiology Referral I10 - Essential (primary) hypertension, I48.11 - Longstanding persistent atrial fibrillation, I50.32 - Chronic diastolic (congestive) heart failure Vascular Surgery Referral I73.9 - Peripheral vascular disease, unspecified
--- OUTSIDE RECORDS SUMMARY | 2024-12-30 14:04 | XMS_ITS | Data Portability ---
Author Organization [place] [facility] Wilmer Garcia AONE [place] Address [address] [place] [address] Care Team Providers Care Pyroglazer Name Role Phone GRIFFIN SANDERS Primary Care Provider GRIFFIN SANDERS Referring Provider [phone] Assessment Encounter Date Assessment Date Assessment LastModified by Organization Details LastModified Time 10/14/2024 10/14/2024 We discussed today his diagnosis [...] physical examination, tests/diagnostic imaging, and treatment plan [email or web address] Not available 11/11/2024 10:23:26 11/15/2024 11/15/2024 Patient is an 84-year-old female with an effusion and osteoarthritis. She had exacerbation of her symptoms. She developed a joint effusion. We discussed treatment options. She was eager for any relief. We discussed joint aspiration and possible corticosteroid injection. She was eager to proceed. Patient tolerated the aspiration and injection well. Postinjection instructions given. Frequency of injection was reviewed. Synovial fluid analysis sent All questions answered to their satisfaction. Patient will follow-up in 3 to 4 weeks if symptoms have not improved, sooner for any complications. Patient was seen and evaluated by Marv Sifuentes PA-C in indirect conjunction with Dr. Ramirez. The provider agrees with the history, physical examination, recommended tests/diagnostic imaging, and treatment plan. [email or web address] Not available 12/16/2024 17:15:55 12/09/2024 12/09/2024 HPI : Patient is here [...] degrees. The knees are stable within those [id number]. The alignment of the right knee is [...] symptoms worsen. [email or web address] Not available 12/09/2024 11:21:59 12/23/2024 12/23/2024 She continues to improve with PT and at home exercises. She will continue with therapy at this time and transition fully to home exercises at her convenience. We will fit her with a new heel wedge today to see if this fits better in her shoe. Follow-up in 6 weeks for progress check. Patient was seen and evaluated by Gibran Hull PA-C in indirect conjunction with Documenting Provider: Kayley Romero MD He/She agrees with history, physical examination, tests/diagnostic imaging, and treatment plan [email or web address] Not available 12/23/2024 10:01:57 Plan of Treatment Reminders Order Date Submit Date Provider Last Modified By Organization Details Last Modified Time Details Appointments FOLLOW UP 2024 01:00P Alfreda Romero MD Not available Not available Not available Lab crystals, synovial fluid 2024 025 ALAN Not available 11/17/2024 08:58:20 cell count w/ diff, synovial fluid 2024 025 [email or web address] Not available 12/17/2024 10:17:28 gram stain, synovial fluid 2024 025 ALAN Not available 11/17/2024 08:59:30 culture, synovial fluid 2024 025 delmi 3 Not available 12/17/2024 10:17:28 Referral None recorded. Procedures None recorded. Surgeries None recorded. Imaging XR, ankle, 3 or more view 2024 025 acosta [facility] [place] [facility], [address], [place], [address], 10/14/2024 10:12:58 Medication Orders lidocaine (PF) 100 mg/5 mL (2 %) injection syringe 2024 025 [email or web address] [id number], [address] [place], [address], 12/09/2024 10:44:13 [email or web address] lone acetonide 40 mg/mL suspensio n for injection 2024 025 [email or web address] [id number], [address] [place], [address], 12/09/2024 10:44:13 Patient TargetsNo targets recorded. Patient InstructionsNo instructions recorded. Reason for Referral None Reported. Results Created Date Observation Date Name Description Value Unit Range Abnormal Flag Note LastModifiedBy Organization Detail LastModifiedTime Result Notes None recorded. Problems Name Problem SNOMED Code Status Onset Date Resolution Date Notes Provider Name and Address Organization Details Recorded Time Pain of left knee joint 7511939559930 07 Active 2022 ERNST REMY PA-C [address], [place], [address], [place] [facility] [place], P 3 09:16:19 Trochanteri c bursitis of right hip 4715592096932 00 Active 2022 ERNST REMY PA-C [address], [place], [address], [place] [facility] [place], P 3 09:16:22 Arthritis of left knee 3072028098987 104 Active 2022 ERNST REMY PA-C [address], [place], [address], [place] [facility] [place], P 3 09:16:24 Osteoarthri tis of left knee joint 6915119452563 09 Active 2024 ERNST REMY PA-C [address], [place], [address], [place] [facility] [place], P 5 10:12:25 Left Achilles tendinitis 2812091379819 02 Active 2024 GIBRAN HULL PA-C [address], [place], [address], [place] [facility] [place], P 5 09:59:41 Effusion of joint of right knee 9497483428741 04 Active 2024 MARV SIFUENTES PA-C [address], [place], [address], [place] [facility] [place], P 5 10:44:29 Osteoarthri tis of right knee joint 7557318644106 00 Active [address], [place], [address], [place] [facility] [place], P 5 11:19:31 Pain of right knee region 1763693603231 05 Active 2024 MARV SIFUENTES PA-C [address], [place], [address], [place] [facility] [place], P 5 17:13:32 Problem Notes None recorded. Procedures Surgical History Date Name Laterality Status Provider Name and Address Organization Details Recorded Time 5 HEIDY Knee Inj/Asp completed [address], [place], [address], [place] [facility] [place], P 12/16/2024 17:12:18 5 MJG Knee injection w/US completed ERNST REMY PA-C [address], [place], [address], [place] [facility] [place], P 07/15/2024 10:12:10 3 MJG Knee injection w/US completed ERNST REMY PA-C [address], [place], [address], [place] [facility] [place], P 11/25/2022 10:35:31 3 MJG GT injection completed ERNST REMY PA-C [address], [place], [address], [facility] 11/11/2022 09:17:28 Imaging Results None [...] Not available Not available Not available 11/11/2022 82267 8003 SNOMED Lyle Carla hamilton, [facility], P 3 09:03:25 4751 Cipro medicatio n Not available Not available Not available 11/11/2022 52523 3 RxNorm Lyle Carla hamilton, [facility], P 3 09:03:31 4752 wheat gluten extract food Not available Not available Not available 11/11/2022 36593 81 RxNorm Lyle Swanndipika hamilton, [facility], P 3 09:03:37 Medications Name Sig Start [...] 6 HOURS NEEDED FOR NAUSEA AND VOMITTING 12/23 completed Not Available Not Available Not Available [email or web address] [...] Updated DateTime 10/14/2024 172.72 cm 27.2 kg/m2 46987.03 g [facility] [place] [facility] [place], P 10/14/2024 09:45:06 Date Recorded Body height Body mass index (BMI) Body weight Provider Name and Address Organization Details Last Updated DateTime 11/11/2024 172.72 cm 27.2 kg/m2 47891.03 g [facility] [place] [facility] [place], P 11/11/2024 10:15:34 Date Recorded Body height Body mass index (BMI) Body weight Provider Name and Address Organization Details Last Updated DateTime 11/15/2024 167.64 cm 25.5 kg/m2 [address] [place] [facility] [place], P 11/15/2024 10:35:43 Date Recorded Body height Body mass index (BMI) Body weight Provider Name and Address Organization Details Last Updated DateTime 12/09/2024 167.64 cm 25.3 kg/m2 [address] [place] [facility] [place], [facility] 12/09/2024 10:44:22 Date Recorded Body height Body mass index (BMI) Body weight Provider Name and Address Organization Details Last Updated DateTime 12/23/2024 167.64 cm 25.3 kg/m2 [address] [place] [facility] [place], P 12/23/2024 09:46:34 Social History Question Answer Notes LastModified by [employer] Details LastModified Time Tobacco Smoking Status Former Smoker Lyle Swanndipika hamilton, [facility] [place], P 11/11/2022 09:04:02 When Did You Quit Smoking? 16+yearssinc elastcigaret te [email or web address] Information not available 11/11/2022 How Many Years Have You Smoked Tobacco? 20 [email or web address] Information not available 11/11/2022 Sex: Unknown Functional Status Question Answer Note LastModified by Organizat ion Details LastModified Time Do you use any illicit or recreational drugs? No [email or web address] Information not available 11/11/2022 Do you or have you ever used any other forms of tobacco or nicotine? No [email or web address] Information not available 11/11/2022 What is your level of alcohol consumption? None [email or web address] Information not available 11/11/2022 Mental Status None recorded. Family History Relationship Description Onset Age of this Age Resolved Age Notes LastModified by Organization Details LastModified Time Mother Arthritis [email or web address] Not avai layla 11/11/2022 09:04:43 Mother Diabetes mellitus [email or web address] Not available 10/2022 09:04:52 Mother Heart disease [email or web address] Not available 10/2022 09:05:03 Mother Hyperlipidem ia [email or web address] Not available 10/2022 09:05:12 Mother Hypertensive disorder Not available 10/2022 09:05:20 Father Diabetes mellitus [email or web address] Not available 10/2022 09:04:52 Father Heart disease [email or web address] Not available 10/2022 09:05:03 Medical History Condition Response Coronary Artery Disease N Gout Y Hyperthyroidism N MRSA N Blood Transfusion N Emphysema N Hypothyroidism N COPD N Depression N Pacemaker Y Vascular Disease N Gastrointestinal Disease Y Anxiety Disorder N Autoimmune disease N Arthritis Y Cancer Y Stroke N High Cholesterol N Neurologic Disorder N Liver Disease N Organ Transplant N Rheumatoid Arthritis N Arrhythmia N Fibromyalgia N Kidney Disease Y Allergies/Hayfever N Adverse Reaction to Anesthesia N Thyroid Problems N Anemia N Brain Injury N Heart Attack ([place]) N Osteopenia Y Diabetes N Bleeding Disorder [...] SNOMED-CT Code Diagnosis ICD10 Code Diagnosis Note [id number] LAWRENCE MARTIN [facility] [address] [address] 11/11/2022 08:48:19 11/11/2022 09:40:18 Pain of left knee joint 2759817675 91375 M25.562 Trochanter ic bursitis of right hip 6593440638 28937 M70.61 Arthritis of left knee 6821029014 825129 M13.862 [id number] LAWRENCE MARTIN [address] [address] 11/25/2022 10:18:33 11/25/2022 10:58:21 Arthritis of left knee 7546355859 247828 M13.862 [id number] LAWRENCE MARTIN [facility] [address] [address] 12/23/2022 13:37:53 12/23/2022 14:15:30 Arthritis of left knee 7693003397 220553 M13.862 Trochanter ic bursitis of right hip 8815846414 23394 M70.61 Diagnosis: R greater trochanter ic bursitis with IT band friction syndrome Evaluate and treat as indicated to reduce pain and to improve mobility, range of motion, and function. Please teach a home exercise plan and incorporat e PT into patient's exercise routine. 2-3 sessions weekly for 6 weeks. [id number] LAWRENCE MARTIN [facility] 299 [facility] [address] [place] [address] 07/15/2024 08:44:28 07/15/2024 10:35:10 Arthritis of left knee 8180213834 897451 M13.862 Osteoarthr itis of left knee joint 8026884171 40865 M17.12 [id number] LAWRENCE MARTIN [address] [address] 09/28/2024 14:12:23 09/28/2024 14:54:38 Arthritis of left knee 9826627944 220009 M13.862 [id number] LAWRENCE HERBERT [place] [address] 10/14/2024 09:37:34 10/14/2024 10:12:58 Ankle pain 532312172 M25.572 Left Achil les tendinitis 0125961856 93495 M76.62 [id number] LAWRENCE HERBERT [place] [address] 11/11/2024 10:09:37 11/11/2024 10:25:44 Left Achilles tendinitis 6906222167 04817 M76.62 [id number] LAWRENCE JOE [facility] [address] [place] [address] [place] [address] 11/15/2024 09:28:19 11/15/2024 10:45:45 Pain of right knee region 9962006540 82610 M25.561 Osteoarthr itis of right knee joint 7688639979 99819 M17.11 Effusion o f joint of right knee 4961254707 27164 M25.461 [id number] MD RADHA Barrios [address] [address] 12/09/2024 10:11:16 12/09/2024 11:20:35 Osteoarthritis of right knee joint 6682332813 67020 M17.11 [id number] GIBRAN HULL PA-C [facility] [address] [place] [address] 12/23/2024 09:40:22 12/23/2024 10:09:04 Left Achilles tendinitis 9136853058 91924 M76.62 Health Concerns Section Related Observation LastModified by Organization Detai ls LastModified Time None Recorded Concern Status LastModified by Organization Details LastModified Time None Recorded Advance Directives Directive None Recorded Payers Insurance Date Sequence Insurance Name Policy Number Policy Wong Covered Member ID Wong Member ID Guarantor Name 09/13/2024 1 [facility] (MEDICARE REPLACEMENT/A DVANTAGE - PPO) [id number] Gintete Champion [id number] Ginette Champion Notes Date Note Type Note Provider Name and Address Organization Details Recorded Time 10/14/2024 text/html Ginette Champion is an 84-year-old [...] smoker. No alcohol use. GIBRAN HULL PA-C [address], [place], [address], [place] [facility] [place], P 10/14/2024 10:02:13 11/11/2024 text/html Ginette Champion [...] GIBRAN HULL PA-C [address], [place], [address], [facility] - [facility] [place], P 11/11/2024 10:23:39 11/15/2024 text/html Patient is an 84-year-old female who presents today with right knee pain. Symptoms started after doing physical therapy. She was using a recumbent bike when she was using to rehab her Achilles tendinitis. Since last week she has noted swelling in her knee which has persisted. She was initially seen for her Achilles tendon but was also having knee pain. Symptoms were not as severe as this. She had been icing and using Tylenol without improvement. She feels that her knee is swollen and tight. MARV SIFUENTES PA-C [address], [place], [address], [facility] - [facility] [place], P 12/16/2024 17:16:43 12/23/2024 text/html Ginette Champion is an 84-year-old female who presents today for repeat evaluation regarding her left Achilles tendon. She has made great progress with physical therapy and feels that her symptoms are improving. She does still have localized Achilles pain but kinesiology tape has been helpful. She has been using a gel heel cup and off the heel wedge as she felt that the heel wedge was too high. Otherwise she is doing well. From 11/11/24 (TK): for evaluation of her Achilles tendinitis. Since [...] GIBRAN HULL PA-C [address], [place], [address], [place] [facility] [place], P 12/23/2024 10:02:08 OBGyn Episode No OBEpisode recorded.
--- OUTSIDE RECORDS SUMMARY | 2024-12-30 14:04 | XMS_ITS | Clinical Summary ---
Author Organization [facility] Address [address] [place] [address] Phone Care Team Providers Care Cutting Inspector Name Role Phone Kris Day MD Primary Care Provider Encounters Date Type Department Care Team Description 11/15/2024 Lab Requisition [facility] Main [facility] [address] [place] [address] Marv Sifuentes PA Effusion, right knee from Last 3 Months Surgical History Surgery Date Site/Laterality Comments HYSTERECTOMY 1976 PROCEDURE: HISTORICAL HYSTERECTOMY APPENDECTOMY 1978 PROCEDURE: SC APPENDECTOMY BREAST LUMPECTOMY 1988 Right PROCEDURE: HISTORICAL BREAST LUMPECTOMY BLADDER SUSPENSION 2001 PROCEDURE: HISTORICAL BLADDER SUSPENSION OTHER SURGICAL HISTORY 2018 PROCEDURE: SC BIOPSY THYROID PERCUTANEOUS CORE NEEDLE CARDIAC SURGERY 2016 PROCEDURE: HISTORICAL HEART SURGERY(ASD,VSD,VALVES); COMMENT: Ablation of Heart Node PACEMAKER IMPLANT 2020 PROCEDURE: HISTORICAL PACEMAKER OTHER SURGICAL HISTORY 1995 PROCEDURE: LAPAROSCOPIC INTEST RESECT/ANAST; COMMENT: Right colon volvulus & gallbladder resection OTHER SURGICAL HISTORY 1983 PROCEDURE: SC PALATOPLASTY CLEFT PALATE MAJOR REVJ; COMMENT: Redo OTHER SURGICAL HISTORY 1938 PROCEDURE: SC PALATOPLASTY CLEFT PALATE MAJOR REVJ; COMMENT: Cleft palate & lip repair BLADDER SUSPENSION 2001 PROCEDURE: HISTORICAL BLADDER SUSPENSION HERNIA REPAIR 2015 PROCEDURE: LAPAROSCOPY, INGUINAL HERNIA REPAIR; COMMENT: + intestine resection OTHER SURGICAL HISTORY 2016 PROCEDURE: SC UNLISTED PROCEDURE CARDIAC SURGERY; COMMENT: Cardiac Abalation OTHER SURGICAL HISTORY 2020 PROCEDURE: SC INS NEW/RPLC PRM PACEMAKER W/TRANSV ELTRD VENTR OTHER SURGICAL HISTORY 11/18/2023 N/A PROCEDURE: SC LAPS RPR PARAESPHGL HRNA INCL FUNDPLSTY W/MESH [...] hy perlipidemia Knee 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) Thyroid goiter DX:Thyroid goite r History of [...] AM EDT [facility]ment [facility] [address] [address] Health Maintenance Due Date Last Done Comments DTaP,Tdap,and Td Vaccines (1 - Tdap) 1957 Zoster Vaccines (1 of 2) 1957 Pneumococcal Vaccine: 50+ Years (1 of 1 - PCV) 1988 RSV Immunization Adult Patients (1 - 1-dose 75+ series) 2013 COVID-19 Vaccine (3 - Pfizer risk series) 08/22/2020 07/25/2020, 07/03/2020 Cholesterol Screening (Lipid Panel) 05/12/2022 Falls Risk Assessment 05/12/2022 Medicare Annual Wellness Visit 05/12/2022 Osteoporosis Screening (Bone Density Screening) 05/12/2022 Social Influencers of Health Screening 05/12/2022 Hypertension/CHF/CAD Annual BMP Blood Test 01/02/2024 Depression Screening 06/09/2024 Influenza Vaccine (#1) 2025 HIB Vaccines Aged [...] Fluid Source Synovial 11/15/2024 4:13 PM EDT [facility] Body Fluid Clarity Cloudy 11/15/2024 4:13 PM EDT [facility] Body Fluid Color Yellow 11/15/2024 4:13 PM EDT [facility] Body Fluid RBC 1,108(H) 0 - 1 /mm3 LAB HEMETOLOGY METHOD 11/15/2024 4:13 PM EDT [facility] Body Fluid Total Nucleated Cells 7,440(H) <150 /mm3 LAB HEMETOLOGY METHOD 11/15/2024 4:13 PM EDT [facility] Synovial Fluid Structure of right knee region / Unknown 11/15/2024 8:30 AM EDT 11/15/2024 1:27 PM EDT us [facility] BODY FLUIDS AND STOOLS OR DERABLES Final Result [facility] [address] [place] [address], [place] [phone] * Culture body fluid with gram stain (11/15/2024 8:30 AM EDT) Fluid Culture No Growth aerobically/a naerobically after 14 days incubation. 11/29/2024 6:55 AM EDT [facility] Gram Stain Result Moderate WBCs present 11/29/2024 6:55 AM EDT [facility] Gram Stain Result No organisms seen 11/29/2024 6:55 AM EDT [facility] Synovial Fluid Structure of right knee region / Unknown 11/15/2024 8:30 AM EDT 11/15/2024 1:27 PM EDT us Marv [facility] MICROBIOLOGY - GENERAL OR DERABLES Final Result Performing Organization Address City/[facility]/ZIP Co de Phone Number [facility] [address] [place] [address], [place] [phone] * (ABNORMAL) Differential body fluid (11/15/2024 8:30 AM EDT) Fluid Neutrophils 63.0(H) <25.0 % 11/15/2024 5:02 PM EDT [facility] Fluid Lymphocytes 7.0 <75.0 % 11/15/2024 5:02 PM EDT [facility] Fluid Monocytes/Macrop hages 30.0 <70.0 % 11/15/2024 5:02 PM EDT [facility] Synovial Fluid Structure of right knee region / Unknown 11/15/2024 8:30 AM EDT 11/15/2024 1:27 PM EDT us Marv [facility] BODY FLUIDS AND STOOLS OR DERABLES Final Result [facility] [address] [place] [address], [place] [phone] * (ABNORMAL) Crystal identification, body fluid (11/15/2024 8:30 AM EDT) Crystals, Fluid Calcium Pyrophospha te(A) Absent 11/15/2024 4:04 PM EDT [facility] Synovial Fluid Structure of right knee region / Unknown 11/15/2024 8:30 AM EDT 11/15/2024 1:27 PM EDT [facility] BODY FLUIDS AND STOOLS OR DERABLES Final Result [facility] [address] [place] [address], [place] [phone] from Last 3 Months Insurance [facility] MEDICARE Care Teams Cutting Inspector Relationship Specialty Start Date End Date Kris Day MD [address] [place] [address] Dr Angelica [place] PCP - General 05/10/22
--- OUTSIDE RECORDS SUMMARY | 2024-12-30 14:04 | XMS_ITS | Clinical Summary ---
Author Organization [facility] Address [address] [place] [address] Phone Care Team Providers Care Chief Substation Operator Name Role Phone Kris Day MD Primary Care Provider [phone] Allergies Active Allergy Reactions Criticality Noted Date [...] of partial resection of colon 03/11/2023 03/11/2023 snf current use of anticoagulant 03/11/2023 Hypertensive disorder [...] Visit [facility] [address] [address] Dandy Newby MD [address] [address] Health Maintenance Due Date Last Done Comments Influenza Vaccine (#1) 2025 1, 01/28/2020, 02/12/2019, Additional history exists Pneumococcal Vaccine: 50+ Years Completed 02/25/2019, 02/16/2016, 03/15/2015 Hepatitis B Vaccine Aged Out No longe r eligible based on patient's age to complete this topic Insurance [facility] Medicare [facility] Medicare Care Teams Chief Substation Operator Relationship Specialty Start Date End Date Kris Day MD [address] DEA NOLAND PCP - General Internal Medicine 11/13/22
--- OUTSIDE RECORDS SUMMARY | 2024-12-30 14:05 | XMS_ITS | Clinical Summary ---
Author Organization [facility] Address [address] [place] [address] Care Team Providers Care Insights Manager Name Role Phone Kris Day MD Primary Care Provider [phone] Allergies Active Allergy Reactions Criticality Noted Date [...] age to complete this topic Care Teams Insights Manager Relationship Specialty Start Date End Date Kris Day MD [address] [place] [address] Dr [address] [place] Jang [address] PCP - General Foil Cutter 05/10/22
== END 2024-12-30 15:18 | disposition home or self-care (01) ==
LOC: HO.HMCHD 13:59
PROVIDERS: PCP Internal Medicine; Visit Provider Internal Medicine
DX: I50.32 Chronic diastolic (congestive) heart failure (principal); I48.11 Longstanding persistent atrial fibrillation; R60.0 Localized edema

== ENCOUNTER → 2024-12-30 13:59 | Outpatient (BNVA) | payer MEDICARE, SELFPAY | PROVIDERS: PCP Internal Medicine; Visit Provider Internal Medicine | DX: I50.32 Chronic diastolic (congestive) heart failure (principal); I48.11 Longstanding persistent atrial fibrillation; R60.0 Localized edema | CPT/HCPCS: 96127; 99212 ==

== ENCOUNTER 2025-01-07 08:14 | Outpatient (REF) | payer MEDICARE, SELFPAY ==
--- OUTSIDE RECORDS SUMMARY | 2023-09-25 11:10 | XMS_ITS ---
Author Organization [facility] Address [address] [place] [address] Care Team Providers Care Network Systems Consultant Name Role Phone Barb (RETIRED) Kris JOHNSON Primary Care Provide Bella Bejarano Unavailable [phone] REASON FOR VISIT epigastric pain, hiatal hernia, abnormal barium swallow Problems Problem Type SNOMED Code ICD Code Onset Dates Problem Status W/U Status Risk Notes Problem Unspecified chronic gastritis without bleeding (K29.50) Active confirmed Problem Benign neoplasm of stomach (98960600) Polyp of stomach and duodenum (K31.7) Active confirmed Problem Gastro-esophagea l reflux disease without esophagitis (683729638) Gastro-esophage al reflux disease without esophagitis (K21.9) Active confirmed Encounters Encounter Location Date Provider Diagnosis [facility] [address] [place] [address] [phone] 09/25/2023 Bella Reyes Hiatal hernia K44. 9 [...] Treatment No Information Progress Notes * CRYSTAL MOCETZUMA MDOB:[birth year] (84 yo F)Acc No.[id number]:09/25/2023 EGD/MAC Patient: CRYSTAL MORALES Provider: Michael Reyes MD :1940 A ge:83 Y S ex:Female Date:09/25/2023 Address:[address] [place] [address], [address], [place], [id number] Pcp:Kris Day (RETIRED )MD Subjective: * Chief Complaints: * 1 . [...] MD Date: 0 09/25/2023 Generated for Abdoul vidal/Yandy/eTransmitting on: 0 01/07/2025 08:19 AM EDT
--- NOTE | ~2025-01-07 | US_ITS ---
EXAMINATION: US LOWER EXTREMITY VENOUS (REFLUX EXAM), BILATERAL CLINICAL INFORMATION: Varices. COMPARISON: None. TECHNIQUE: Color flow triplex imaging and compression Doppler was performed to evaluate both the deep and the superficial systems bilaterally. To evaluate the superficial system, the examination was performed in the upright position. Color-flow Doppler ultrasound and compression ultrasound were utilized. In addition, maneuvers were utilized to demonstrate reflux. FINDINGS: 1. DEEP VENOUS ULTRASOUND OF THE RIGHT LOWER EXTREMITY: Common Femoral Vein: Compressible, normal respiratory variation and augmented flow. Femoral Vein: Compressible, normal color flow and augmentation. Popliteal Vein: Compressible, normal augmentation. Deep Reflux: There is no evidence of reflux in the deep system in either the common femoral vein, superficial femoral or the popliteal vein. There is no evidence of a Gottlieb's cyst. 2. SUPERFICIAL ULTRASOUND WITH DOPPLER OF RIGHT LOWER EXTREMITY: GREAT SAPHENOUS VEIN: Saphenofemoral Junction: 0.7 cm; Reflux: 0 ms Proximal Thigh: 0.4 cm; Reflux: 0 ms Mid Thigh: 0.3 cm; Reflux: 2112 ms Distal Thigh: 0.35 cm; Reflux: 2080 ms At Knee: 0.3 cm; Reflux: 2418 ms Proximal Calf: 0.3 cm; Reflux: 2744 ms Mid Calf: 0.3 cm; Reflux: 0 ms Distal Calf: 0.3 cm; Reflux: 0 ms DUPLICATED MEDIAL GREAT SAPHENOUS VEIN: Diameter: 0.33 cm. Reflux: NA DUPLICATED LATERAL GREAT SAPHENOUS VEIN: Diameter: None imaged Reflux: NA SMALL SAPHENOUS VEIN: Saphenopopliteal Junction: 0.59 cm; Reflux: 0 ms Proximal: 0.27 cm; Reflux: 0 ms Distal: 0.2 cm; Reflux: 0 ms VEIN OF GIACOMINI: Size: NA Reflux: NA PERFORATORS: Location: Below the knee. Size: 0.15 cm. Reflux: NA VARICOSITIES: Location: Proximal thigh. Size: 0.3 cm. Reflux: NA 3. DEEP VENOUS ULTRASOUND OF THE LEFT LOWER EXTREMITY: Common Femoral Vein: Compressible, normal respiratory variation and augmented flow. Femoral Vein: Compressible, normal color flow and augmentation. Popliteal Vein: Compressible, normal augmentation. Deep Reflux: There is no evidence of reflux in the deep system in either the common femoral vein, superficial femoral or the popliteal vein. There is no evidence of a Gottlieb's cyst. 4. SUPERFICIAL ULTRASOUND WITH DOPPLER OF LEFT LOWER EXTREMITY: GREAT SAPHENOUS VEIN: Saphenofemoral Junction: 0.9 cm; Reflux: 0 ms Proximal Thigh: 0.5 cm; Reflux: 0 ms Mid Thigh: 0.4 cm; Reflux: 0 ms Distal Thigh: 0.34 cm; Reflux: 2436 ms At Knee: 0.34 cm; Reflux: 2404 ms Proximal Calf: 0.3 cm; Reflux: 0 ms Mid Calf: 0.3 cm; Reflux: 0 ms Distal Calf: 0.3 cm; Reflux: 0 ms DUPLICATED MEDIAL GREAT SAPHENOUS VEIN: Diameter: 0.35 cm. Reflux: NA DUPLICATED LATERAL GREAT SAPHENOUS VEIN: Diameter: None imaged. Reflux: NA SMALL SAPHENOUS VEIN: Saphenopopliteal Junction: 0.4 cm; Reflux: 0 ms Proximal: 0.2 cm; Reflux: 0 ms Distal: 0.1 cm; Reflux: 0 ms VEIN OF GIACOMINI: Size: NA Reflux: NA PERFORATORS: Location: Below the knee. Size: 0.3 cm. Reflux: 2444 ms. VARICOSITIES: Location: Small saphenous vein, mid segment. Size: 0.4 cm. Reflux: NA US/US venous insuf bilat IMPRESSION: Right: Venous insufficiency, great saphenous vein from the mid thigh to below the knee. Varices without reflux in the proximal thigh. Left: Venous insufficiency, great saphenous vein above the knee to the knee. Perforators with reflux below the knee. Varices without reflux, small saphenous vein mid segment. Electronically signed by: Fortunato Baer MD 01/07/2025 10:48 AM EDT
--- OUTSIDE RECORDS SUMMARY | 2025-01-07 08:19 | XMS_ITS | Clinical Summary ---
Author Organization [facility] Address [address] [place] [address] Phone Care Team Providers Care Assembly Machine Tender Name Role Phone Kris Day MD Primary Care Provider [phone] Encounters Date Type Department Care Team Description 11/15/2024 Lab Requisition [facility] Main Lab [address] [place] [address] Marv Sifuentes PA Effusion, right knee from Last 3 Months Surgical History Surgery Date Site/Laterality Comments HYSTERECTOMY 1976 PROCEDURE: HISTORICAL HYSTERECTOMY APPENDECTOMY 1978 PROCEDURE: MI APPENDECTOMY BREAST LUMPECTOMY 1988 Right PROCEDURE: HISTORICAL BREAST LUMPECTOMY BLADDER SUSPENSION 2001 PROCEDURE: HISTORICAL BLADDER SUSPENSION OTHER SURGICAL HISTORY 2018 PROCEDURE: MI BIOPSY THYROID PERCUTANEOUS CORE NEEDLE CARDIAC SURGERY 2016 PROCEDURE: HISTORICAL HEART SURGERY(ASD,VSD,VALVES); COMMENT: Ablation of Heart Node PACEMAKER IMPLANT 2020 PROCEDURE: HISTORICAL PACEMAKER OTHER SURGICAL HISTORY 1995 PROCEDURE: LAPAROSCOPIC INTEST RESECT/ANAST; COMMENT: Right colon volvulus & gallbladder resection OTHER SURGICAL HISTORY 1983 PROCEDURE: MI PALATOPLASTY CLEFT PALATE MAJOR REVJ; COMMENT: Redo OTHER SURGICAL HISTORY 1938 PROCEDURE: MI PALATOPLASTY CLEFT PALATE MAJOR REVJ; COMMENT: Cleft palate & lip repair BLADDER SUSPENSION 2001 PROCEDURE: HISTORICAL BLADDER SUSPENSION HERNIA REPAIR 2015 PROCEDURE: LAPAROSCOPY, INGUINAL HERNIA REPAIR; COMMENT: + intestine resection OTHER SURGICAL HISTORY 2016 PROCEDURE: MI UNLISTED PROCEDURE CARDIAC SURGERY; COMMENT: Cardiac Abalation OTHER SURGICAL HISTORY 2020 PROCEDURE: MI INS NEW/RPLC PRM PACEMAKER W/TRANSV ELTRD VENTR OTHER SURGICAL HISTORY 11/18/2023 N/A PROCEDURE: MI LAPS RPR PARAESPHGL HRNA INCL FUNDPLSTY W/MESH [...] hy perlipidemia Knee osteoarthritis 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) Thyroid goiter DX:Thyroid goite r History [...] AM EDT [facility]ment [facility] [address] [address] Health Maintenance Due Date Last [...] Result [facility] [address] [place] [address], [place] [phone] * Culture body fluid with gram stain [...] OR DERABLES Final Result Performing Organization Address City/[facility]/ZIP Co de Phone Number [facility] [address] [place] [address], [place] [phone] * (ABNORMAL) Differential body fluid (11/15/2024 8:30 [...] [facility] [address] [place] [address], [place] [phone] * (ABNORMAL) Crystal identification, body fluid (11/15/2024 8:30 AM EDT) Crystals, Fluid Calcium Pyrophospha te(A) Absent 11/15/2024 4:04 PM EDT [facility] Synovial Fluid Structure of right knee region / Unknown 11/15/2024 8:30 AM EDT 11/15/2024 1:27 PM EDT [facility] BODY FLUIDS AND STOOLS OR DERABLES Final Result [facility] [address] [place] [address], [place] [phone] from Last 3 Months Insurance [facility] MEDICARE Care Teams Assembly Machine Tender Relationship Specialty Start Date End Date Kris Day MD [address] [place] [address] Dr Angelica [place] PCP - General 05/10/22
--- OUTSIDE RECORDS SUMMARY | 2025-01-07 08:20 | XMS_ITS | Patient Health Record ---
Author Organization [facility] Address [address] [facility] [place] [address] Care Team Providers Care Commercial Internship Name Role Phone Altagracia Funk Primary Care Provider Ramona Bonilla Unavailable [phone] Linwood Dhaliwal Unavailable [phone] Allergies Allergen (clinical drug ingredient) Drug/Non Drug [...] day Active Alendronate Sodium 70 MG (Prior Auth#:[id number] ) Oral; Duration: 28 Not-Taking Dicyclomine HCl [...] Vaccine Route Administration Date Status Comme nts Influenza Unknown 03/09/2024 Administered COVID-19 Pfizer BioNTech Vaccine Unknown 02/07/2022 Administered [...] primary osteoarthritis of the ankle and/or foot (536480280) Primary osteoarthrit is, left ankle and foot (M19.072) Active confirmed Problem Other hammer toe(s) (acquired), left foot (M20.42) Active confirmed Vital Signs Blood pressure diastolic 60 mm Hg 12/01/2024 Height 5 ft 6 in in 12/01/2024 Blood pressure systolic 126 mm Hg 12/01/2024 Weight 158 lbs 12/01/2024 BMI 25.5 kg/m2 12/01/2024 Procedures Procedure Date Ordered Date Performed Result Body Sit e 66931-HPFDZTT NAIL, 6 OR MORE 12/01/2024 N/A Encounters Encounter Location Date Provider Diagnosis [facility] [address] [place] [address] 02/18/2024 Linwood Dhaliwal Ingrowing nail L60.0 ; Tinea unguium B35.1 ; Pain in right toe(s) M79.674 ; Other hammer toe(s) (acquired), left foot M20.42 and Metatarsalgia, left foot M77.42 [facility] [address] [place] [address] 12/01/2024 Ramona Miller Pain in right toe(s) [...] X ray : Foot, left 3V 05/06/2022 [id number] NAIL, 6 OR MORE 12/01/2024 95562-Somzvtgo Plate 05/21/2018 91353-Rtxqmykl Plate 01/06/2014 92933-Imkughbr Plate 12/12/2015 33478- Debride <25 sq cm 12/27/2015 79216- Debride <25 sq cm 01/20/2014 58305- Debride <25 sq cm 01/08/2012 86216- Debride <25 sq cm 03/23/2012 12981- Debride <25 sq cm 12/13/2011 92568- Debride <25 sq cm 12/19/2011 49885- Debride <25 sq cm 12/12/2011 39101- Debride <25 sq cm 07/08/2011 93153- Debride <25 sq cm 09/16/2011 05254- Debride <25 sq cm 11/11/2011 77624- Debride <25 sq cm 12/04/2011 01670-GBGVJGBB OF HEMATOMA/FLUID 019 19809,H0985-TIL TENDON SHEATH/LIGAMENT 0 08/09/2020 74562, J0702- Neuroma/Injection 08/10/19 76342- Nail Unit Biopsy 01/07/2018 Next Appt Details Provider Name:Ramona Caban ferny, 03/03/2025 09:00:00 AM, [address] [place], [address], Insurance Providers Payer Name Payer Address Payer Phone Subscriber Number Group Number Insured Name Patient Relationship to Insured Coverage Start Date Coverage End Date [employer] Medicare Adv-[id number] [address] [address] [place] [address] [id number] Luz MarinasandraGinette Self - patient is the insured Medical (General) History Medical History History ICD Code thyroid disorder mumps measles chicken pox cancer back, hip, knee pain Arthritis celiac disease Surgical History Surgery Date(Month/Year) breast tumor removal 1997 cholecystectomy 1985 colon resection 1985 hysterectomy 1979 lens implant OD, OS 2004 hammer toe 2011 heart surgery unspecified Cardio Version 02/2020,04/2020 Hospitalization History Reason Date(Month/Year[place] [facility] [place] perforated bowel 12 days 03/2016-04/2016 [facility] for a Heart Procedure 04/2015
--- OUTSIDE RECORDS SUMMARY | 2025-01-07 08:20 | XMS_ITS | Clinical Summary ---
Author Organization [facility] Address [address] [place] [address] Care Team Providers Care Credit Control Clerk Name Role Phone Kris Day MD Primary Care Provider [phone] Allergies Active Allergy Reactions Criticality Noted Date [...] age to complete this topic Care Teams Credit Control Clerk Relationship Specialty Start Date End Date Kris Day MD [address] [place] [address] Dr [address] [place] Jang [address] PCP - General Manager English 05/10/22
--- OUTSIDE RECORDS SUMMARY | 2025-01-07 08:20 | XMS_ITS | Clinical Summary ---
Author Organization [facility] Address [address] [facility] [address] [place] [address] Phone Care Team Providers Care Inspector Fibrous Wallboard Name Role Phone Kris Day MD Primary Care Provider [phone] Allergies Active Allergy Reactions Criticality Noted Date [...] of partial resection of colon 03/11/2023 03/11/2023 [facility] current use of anticoagulant 03/11/2023 Hypertensive disorder [...] Visit [facility] [address] [address] Dandy Nweby MD [address] [address] Health Maintenance Due Date Last Done Comments Influenza Vaccine (#1) 2025 1, 01/28/2020, 02/12/2019, Additional history exists Pneumococcal Vaccine: 50+ Years Completed 02/25/2019, 02/16/2016, 03/15/2015 Hepatitis B Vaccine Aged Out No longe r eligible based on patient's age to complete this topic Insurance [facility] Medicare [facility] Medicare Care Teams Inspector Fibrous Wallboard Relationship Specialty Start Date End Date Kris Day MD [address] DEA NOLAND PCP - General Internal Medicine 11/13/22
== END 2025-01-07 08:15 | disposition home or self-care (01) ==
LOC: HO.US 08:14
PROVIDERS: PCP Internal Medicine; Visit Provider Internal Medicine
DX: M79.89 Other specified soft tissue disorders (principal)
CPT/HCPCS: 93970

== ENCOUNTER → 2025-01-07 08:15 | Outpatient (BNV) | payer MEDICARE, SELFPAY | PROVIDERS: PCP Internal Medicine; Visit Provider Radiology Diagnostic Radiology | DX: R22.43 Localized swelling, mass and lump, lower limb, bilateral (principal) | CPT/HCPCS: 93970 ==

== ENCOUNTER 2025-03-01 11:07 | Outpatient (AMB) | payer MEDICARE, SELFPAY ==
--- OUTSIDE RECORDS SUMMARY | 2023-09-25 11:10 | XMS_ITS ---
Author Organization [facility] Address [address] [place] [address] Care Team Providers Care Nut Threader Name Role Phone Barb (RETIRED) Kris JOHNSON Primary Care Provide Bella Bejarano Unavailable [phone] REASON FOR VISIT epigastric pain, hiatal hernia, abnormal barium swallow Problems Problem Type SNOMED Code ICD Code Onset Dates Problem Status W/U Status Risk Notes Problem Atrophic gastritis (14806454) Unspecified chronic gastritis without bleeding (K29.50) Active confirmed Problem Benign neoplasm of stomach (94507001) Polyp of stomach and duodenum (K31.7) Active confirmed Problem Gastro-esophagea l reflux disease without esophagitis (432228888) Gastro-esophage al reflux disease without esophagitis (K21.9) Active confirmed Encounters Encounter Location Date Provider Diagnosis [facility] [place] [address] [place] [phone] 09/25/2023 Bella Reyes Hiatal hernia K44. 9 [...] CRYSTAL MOCTEZUMA MDOB:[birth year] (84 yo F)Acc No.[id number]:09/25/2023 EGD/MAC Patient: PANDA MORALESANNE Alfreda Provider: Michael Reyes MD :1940 A ge:83 Y S ex:Female Date:09/25/2023 Address: [employer] [facility], [address], [place], [place] Pcp:Kris Day (RETIRED )MD Subjective: * Chief [...] Reyes MD Date: 0 09/25/2023 Generated for Cassidyi young/Yandy/eTransmitting on: 0 03/01/2025 01:53 PM EDT
--- NOTE | 2025-03-01 11:11 | MHC.OFFVIS ---
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 Left leg is worse. Left arm and hand is swollen as well. Patient gets tingling in both legs in the morning upon waking up. Tingling stops once she is up and moving. No pain. Accompanied by: Self / Same As Patient Allergies ciprofloxacin (Ciprofloxacin) Allergy (Severe, Verified 03/01/25 11:16) WHOLE DIGESTIVE SYSTEM SHUT DOWN gluten (GLUTEN) Allergy (Intermediate, Verified 03/01/25 11:16) DIARRHEA Sulfa (Sulfonamide Antibiotics) Allergy (Mild, Verified 03/01/25 11:16) NAUSEA & VOMITING, vomiting Doxycycline Hyclate Allergy (Unknown, Uncoded 09/23/24 14:45) severe thrush gluten Allergy (Unknown, Uncoded 09/23/24 14:45) (+) celiacs cipro Adverse Reaction (Unknown, Uncoded 09/23/24 14:45) n/v sulfa Adverse Reaction (Unknown, Uncoded 09/23/24 14:45) vomiting HPI HPI 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 The swelling in the left leg has been significant, prompting the use of compression stockings, which have helped maintain a more normal size. The patient reports that without the stockings, the leg swells significantly. An ultrasound revealed venous insufficiency due to non-functioning valves in the veins of the left leg. The patient has been advised to continue using compression stockings, which have provided significant relief and improved leg strength during ambulation. The patient also experiences knee arthritis with effusion, which has required aspiration in the past. The last cortisone injection was administered seven months ago, and the patient reports no current pain, only swelling. The patient has a history of engaging in physical therapy and owns exercise equipment to aid circulation. She has been advised to maintain physical activity, including the use of her exercise machine, to promote circulation and manage symptoms. [facility] Medical History Cataracts, both eyes Kidney disease Hiatal hernia Celiac disease Hyperlipidemia HTN (hypertension) Duodenal ulcer SVT (supraventricular tachycardia) Atrial fibrillation Thyroid nodule Seasonal allergic rhinitis Nodule of upper lobe of right lung Arthritis of right knee GERD (gastroesophageal reflux disease) Vitamin D deficiency Cancer of right breast Diastolic heart failure Pacemaker Surgical History History of colonoscopy (~05/16/14) S/P GODWIN (total abdominal hysterectomy) History of toe surgery Hx of tooth extraction History of bladder suspension procedure Hx of cardiac pacemaker H/O partial resection of colon H/O partial mastectomy History of cardiac radiofrequency ablation History of cholecystectomy History of appendectomy History of hysterectomy Hx of corrected cleft lip and palate Family History Mother No problems noted. Father No problems noted. Social History Housing: House Alcohol intake: never Patient Tobacco Use Status: Former Tobacco user Tobacco use type: Cigarette e-Cigarette/Vaping Use: Never Used Second Hand Smoke Exposure: No service: No Current occupational status: retired Cognitive needs: No Hearing needs: Yes (b/l hearing aids ) Vision needs: Yes ( rx Glasses) Review of Systems Const Reports as per HPI ENT Reports no additional complaints Card Denies chest pain, Denies chest pain at rest and Denies chest pain with activity Resp Denies chest congestion and Denies cough GI Reports no additional complaints Musc Details: pain over varicosities, aching of lower extremities, swelling, cramping, heaviness and tiredness, itching Denies abnormal gait Skin/Breast Reports pruritus and Denies wounds Neuro Reports no additional complaints and Denies abnormal gait Psych Denies no additional complaints Physical Exam Const General: cooperative, healthy appearing and comfortable Orientation/consciousness: oriented to person, oriented to place and oriented to time Neck Carotids: no bruits Chest Chest palpation & inspection: normal inspection of the chest and normal palpation of entire chest wall Resp Effort & Inspection: normal respiratory effort and able to speak in complete sentences Cardio Rate: regular rate Heart sounds: S1 normal heart sound present and S2 normal heart sound present Peripheral pulses: Peripheral pulses 2+ throughout GI Inspection: Yes normal to inspection Skin Other: +2 edema, CEAP Classification C4 - skin color changes Ep - Etiology Primary As - superficial veins P - reflux General skin exam: dry skin Neuro General: oriented to person, oriented to place and oriented to time Extrem Right lower extremity: full ROM, normal capillary refill and edema Left lower extremity: full ROM, normal capillary refill and edema Psych Mental Status: mental status grossly normal Results Reviewed Results Reviewed: Brief summary of venous insufficiency testing is as follows: right great saphenous vein: Reflux at knee but vein small in caliber right small saphenous vein: negative right accessory vein: none present left great saphenous vein: Reflux at knee but vein small in caliber left small saphenous vein: negative left accessory vein: none present Please note there is no evidence of any venous aneurysms or significant tortuosity Assessment & Plan Assessment & Plan (1) Varicose veins of right lower extremity with inflammation: Code(s): I83.11 - Varicose veins of right lower extremity with inflammation Category: Medical Plan: In short patient does have some mild lower extremity swelling.I discussed with the patient that her venous insufficiency is not severe and can be managed conservatively with compression stockings. I advised her to continue using them, especially during active days, and to elevate her legs when resting. I also explained that if her symptoms worsen or if she notices skin changes, she should return for further evaluation. Thank you for allowing us to assist in her care. If there are any questions or concerns please do not hesitate to contact us. Plan Patient was informed and verbally consented to the use of an ambient scribe for clinic note documentation during this visit. Patient Instructions: - Continue wearing compression stockings daily, especially on active days. - Elevate legs when resting to reduce swelling. - Maintain regular physical activity to promote circulation. - Monitor for any worsening of symptoms or skin changes and return for evaluation if needed. Coding Level of Care Code New Pt Level 4 (34216) Diagnoses Varicose veins of right lower extremity with inflammation I83.11
--- OUTSIDE RECORDS SUMMARY | 2025-03-01 13:53 | XMS_ITS | Patient Health Record ---
[facility] Address [address] [place] [address] Care Team Providers Care Speech Writer Name Role Phone Altagracia Funk Primary Care Provider Ramona Bonilla Unavailable [phone] Allergies Allergen (clinical drug ingredient) Drug/Non Drug [...] day Active Alendronate Sodium 70 MG (Prior Auth#:[id number] ) Oral; Duration: 28 Not-Taking Dicyclomine HCl [...] Pfizer BioNTech Vaccine Unknown 02/07/2022 Administered 2020,2020 unsure dates Social History Tobacco Use: Social [...] primary osteoarthritis of the ankle and/or foot (903257114) Primary osteoarthrit is, left ankle and foot (M19.072) Active confirmed Problem Acquired hammer toe of left foot (1369080279504579) Other hammer toe(s) (acquired), left foot (M20.42) Active confirmed Vital Signs Blood pressure diastolic 60 mm Hg 12/01/2024 Height 5 ft 6 in in 12/01/2024 Blood pressure systolic 126 mm Hg 12/01/2024 Weight 158 lbs 12/01/2024 BMI 25.5 kg/m2 12/01/2024 Procedures Procedure Date Ordered Date Performed Result Body Sit e 19522-EEXLTMG NAIL, 6 OR MORE 12/01/2024 N/A Encounters Encounter Location Date Provider Diagnosis [facility] [place] [address] [place] [address] 12/01/2024 Ramona Miller Pain in right toe(s) M79.674 ; Onychomycosis B35.1 and Pain in left toe(s) M79.675 Assessments Encounter Date Diagnosis (ICD Code) Assessment Notes Treatment Notes Treatment Clinical Notes Section Notes 12/01/2024 Pain in right toe(s) (ICD-10 - M79.674) 12/01/2024 Onychomycosis (ICD-10 - B35.1) 12/01/2024 Pain in left toe(s) (ICD-10 - M79.675) Plan Of Treatment Pending Test Test Name Order Date X ray : Foot, right 2V 12/04/2011 X ray : Foot, right 2V 12/12/2011 X ray : Foot, right 2V 12/19/2011 X ray : Foot, right 2V 01/08/2012 X ray : Foot, left 3V 05/24/2020 X ray : Foot, left 3V 05/06/2022 53382-HHIOBRM NAIL, 6 OR MORE 12/01/2024 71969-Lkbotggx Plate 05/21/2018 17442-Xewmrhmu Plate 01/06/2014 88193-Wpsodhyt Plate 12/12/2015 79862- Debride <25 sq cm 12/27/2015 93834- Debride <25 sq cm 01/20/2014 66036- Debride <25 sq cm 01/08/2012 76807- Debride <25 sq cm 03/23/2012 32261- Debride <25 sq cm 12/13/2011 05143- Debride <25 sq cm 12/19/2011 13473- Debride <25 sq cm 12/12/2011 76607- Debride <25 sq cm 07/08/2011 72605- Debride <25 sq cm 09/16/2011 81928- Debride <25 sq cm 11/11/2011 50810- Debride <25 sq cm 12/04/2011 73106-BPCJMYKS OF HEMATOMA/FLUID 019 03176,N3990-ITO TENDON SHEATH/LIGAMENT 0 08/09/2020 60807, J0702- Neuroma/Injection 08/10/19 21 47278- Nail Unit Biopsy 01/07/2018 Next Appt Details Provider Name:Ramona isaacs, 03/03/2025 09:00:00 AM, [address] [place], [address], Insurance Providers Payer Name Payer Address Payer Phone Subscriber Number Group Number Insured Name Patient Relationship to Insured Coverage Start Date Coverage End Date [employer] Medicare Adv-[id number] [address] [address] [place] [address] [id number] Luz Marinasandra Ginette Self - patient is the insured Medical (General) History Medical History History ICD Code thyroid disorder mumps measles chicken pox cancer back, hip, knee pain Arthritis celiac disease Surgical History Surgery Date(Month/Year) breast tumor removal 1997 cholecystectomy 1985 colon resection 1985 hysterectomy 1979 lens implant OD, OS 2004 hammer toe 2011 heart surgery unspecified Cardio Version 02/2020,04/2020 Hospitalization History Reason Date(Month/Year) [facility] [place] for Surgery for perforated bowel 12 days 03/2016-04/2016 [facility] [place] for a Heart Procedure 04/2015
--- OUTSIDE RECORDS SUMMARY | 2025-03-01 13:53 | XMS_ITS | Patient Health Record ---
Author Organization [facility] Address [address] [place] [address] Care Team Providers Care Pot Firer Name Role Phone Barb (RETIRED) Kris JOHNSON Primary Care Provide r Unavailable Bella Reyes Unavailable [phone] Allergies Allergen (clinical drug ingredient) Drug/Non Drug Allergy documented on EMR Reaction Allergy Type Onset Date Status Sulfa Unknown Drug Allergy Active ciprofloxacin Cipro Unknown Drug Allergy Act ciera Substance with 4-heimadx-4-methylglutar yl-coenzyme A reductase inhibitor mechanism of action (substance) statins (uncoded) Unknown Allergy Acti ve Reason For Referral No Information Medications Medication [...] Problem Status W/U Status Risk Notes Problem 56491749 Epigastric abdominal pain (R10.13) Active confirmed Problem Epigastric pain (78033862) Epigastric pain (R10.13) Active confirmed Problem Gastro-esophage al reflux disease without esophagitis (259664651) Gastro-esophagea l reflux disease without esophagitis (K21.9) Active confirmed Problem 116396279 Abdominal bloating (R14.0) Active confirmed Problem 461734556 Change in bowel habits (R19.4) Active confirmed Problem Atrophic gastritis (63177299) Unspecified chronic gastritis without bleeding (K29.50) Active confirmed Problem 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) Polyp of stomach and duodenum (K31.7) Active confirmed Problem 495170571 Celiac disease (K90.0) Active confirmed Problem 85920602 Hiatal hernia (K44.9) Active confirmed Problem 76668184 Constipation, unspecified constipation type (K59.00) Active confirmed Problem Barium swallow abnormal (356323091) Abnormal barium swallow (R93.3) Active confirmed Problem 68983249 Abdominal distention (R14.0) Active confirmed Plan Of Treatment Future Test Test Name Order Date UPPER GI ENDOSCOPY 02/09/2015 UPPER GI ENDOSCOPY 02/01/2020 UPPER GI ENDOSCOPY 09/19/2023 Insurance Providers Payer Name Payer Address Payer Phone Subscriber Number Group Number Insured Name Patient Relationship to Insured Coverage Start Date Coverage End Date [employer] Medicare Adv (PPO) [address] [address] [place] [address] [id number] CRYSTAL MOCTEZUMA Self - patient is the insured Medical (General) History Medical History History ICD Code Colonoscopy and EGD 8--colon was negative, upper had a moderate-sized HH--no significant esophagitis 1 Small tubular adenoma removed in 2004 Supraventriclar tachycardia treated with ablation and medication--not successful----scheduled for another ablation on 02/21/[address] Rodriguez at [facility] Breast cancer treated with lumpectomy, X RT, and Tamoxifen Denies IN,DM,CVA,Lung disease,renal dise ase Duodenal ulcer in the [...] Dr. Lorenzo Hawley Cleft palate surgery - 1938 GODWIN 1976 Cholecystectomy Umbilical hernia repair resulting [...]
--- OUTSIDE RECORDS SUMMARY | 2025-03-01 13:53 | XMS_ITS | Clinical Summary ---
Author Organization [facility] 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 [address] [address] Dandy Newby MD [address] [address] Health Maintenance Due Date Last Done Comments Influenza Vaccine (#1) 2025 1, 01/28/2020, 02/12/2019, Additional history exists Pneumococcal Vaccine: 50+ Years Completed 02/25/2019, 02/16/2016, 03/15/2015 Hepatitis B Vaccine Aged Out No longe r eligible based on patient's age to complete this topic Insurance [facility] Medicare [facility] Medicare Care Teams Relief Pilot Relationship Specialty Start Date End Date Kris Day MD [id number] DEA NOLAND PCP - General Internal Medicine 11/13/22
--- OUTSIDE RECORDS SUMMARY | 2025-03-01 13:53 | XMS_ITS | Clinical Summary ---
Author Organization [facility] Address [address] [place] [address] Care Team Providers Care Pipelaying Fitter Name Role Phone Kris Day MD Primary Care Provider [phone] Allergies Active Allergy Reactions Criticality Noted Date [...] Tdap) 03/09/2019 03/08/2019 COVID-19 Vaccine (3 - 2024-2 6 season) 2025 07/25/2020, 07/03/2020 Influenza Vaccine (#1) 2025 Pneumococcal Vaccine Completed 02/25/2019, 02/16/2016, 03/15/2015 Hepatitis B Vaccines Aged Out No long er eligible based on patient's age to complete this topic RSV Ped < 20 months Aged Out No longe r eligible based on patient's age to complete this topic Care Teams Pipelaying Fitter Relationship Specialty Start Date End Date Kris Day MD [address] [place] [address] Dr [address] [place] [address] PCP - General Dry Goods Inspector 05/10/22
--- OUTSIDE RECORDS SUMMARY | 2025-03-01 13:53 | XMS_ITS | Encounter Summary ---
Author Organization [facility] Address [address] [place] [address] Care Team Providers Care Reproductive Surgeon Name Role Phone Altagracia Stanton MD Primary Care Provider [phone] Encounter Details Date Type Department Care Team (Late st Contact Info) Description 11/15/2024 Lab Requisition [facility] Main Lab [address] [place] [id number] Marv Sifuentes PA [address] [facility] [address] [place] [address] Effusion, right knee Social History Tobacco Use Types Packs/Day Years [...] on file Sexual Orientation Not on file documented as of this encounter Plan of Treatment Upcoming Encounters Date Type Department Care Team (Late st Contact Info) Description 05/16/2025 2:30 PM EST Ancillary Procedure [facility] [address] [place] [address] documented as of this encounter Procedures Procedure Name Priority Date/Time Associated Diagnosis Comments CELL COUNT WITH REFLEX DIFFERENTIAL, BODY FLUID Routine 11/15/2024 8:30 AM EDT Effusion, right knee CULTURE BODY FLUID WITH GRAM STAIN Routine 11/15/2024 8:30 AM EDT Effusion, right knee DIFFERENTIAL BODY FLUID Routine 11/15/2024 8:30 AM EDT Effusion, right knee CRYSTAL IDENTIFICATION, BODY FLUID Routine 11/15/2024 8:30 AM EDT Effusion, right knee documented in this encounter Results * (ABNORMAL) Differential body fluid (11/15/2024 8:30 AM EDT) Fluid Neutrophils 63.0(H) <25.0 % 11/15/2024 5:02 PM EDT [facility] Fluid Lymphocytes 7.0 <75.0 % 11/15/2024 5:02 PM EDT [facility] Fluid Monocytes/Macrop hages 30.0 <70.0 % 11/15/2024 5:02 PM EDT [facility] Synovial Fluid Structure of right knee region / Unknown 11/15/2024 8:30 AM EDT 11/15/2024 1:27 PM EDT us [facility] BODY FLUIDS AND STOOLS OR DERABLES Final Result [facility] [address] [place] [address], [place] [phone] * Culture body fluid with gram stain (11/15/2024 8:30 AM EDT) Fluid Culture No Growth aerobically/a naerobically after 14 days incubation. 11/29/2024 6:55 AM EDT [facility] Gram Stain Result Moderate WBCs present 11/29/2024 6:55 AM EDT [facility] Gram Stain Result No organisms seen 11/29/2024 6:55 AM EDT [facility] Synovial Fluid Structure of right knee region / Unknown 11/15/2024 8:30 AM EDT 11/15/2024 1:27 PM EDT us [facility] MICROBIOLOGY - GENERAL OR DERABLES Final Result Performing Organization Address [facility] Co de Phone Number [facility] [address] [place] [address], [place] [phone] * (ABNORMAL) Cell count with reflex differential, body fluid (11/15/2024 8:30 AM EDT) Body Fluid Source Synovial 11/15/2024 4:13 PM EDT [facility] Body Fluid Clarity Cloudy 11/15/2024 4:13 PM EDT [facility] Body Fluid Color Yellow 11/15/2024 4:13 PM EDT [facility] Body Fluid RBC 1,108(H) 0 - 1 /mm3 LAB HEMETOLOGY METHOD 11/15/2024 4:13 PM EDT [facility] Body Fluid Total Nucleated Cells 7,440(H) <150 /mm3 LAB HEMETOLOGY METHOD 11/15/2024 4:13 PM EDT [facility] Synovial Fluid Structure of right knee region / Unknown 11/15/2024 8:30 AM EDT 11/15/2024 1:27 PM EDT [facility] BODY FLUIDS AND STOOLS OR DERABLES Final Result Performing Organization Address City/[facility] Co de Phone Number [facility] [address] [place] [address], [place] [phone] * (ABNORMAL) Crystal identification, body fluid (11/15/2024 8:30 AM EDT) Crystals, Fluid Calcium Pyrophospha te(A) Absent 11/15/2024 4:04 PM EDT [facility] Synovial Fluid Structure of right knee region / Unknown 11/15/2024 8:30 AM EDT 11/15/2024 1:27 PM EDT us [facility] BODY FLUIDS AND STOOLS OR DERABLES Final Result [facility] [address] [place] [address], documented in this encounter Visit Diagnoses Diagnosis Effusion, right knee documented in this encounter Care Teams Reproductive Surgeon Relationship Specialty Start Date End Date Altagracia Stanton MD [address] [place] [id number] PCP - General Internal Medicine 01/21/25 documented as of this encounter
--- OUTSIDE RECORDS SUMMARY | 2025-03-01 13:53 | XMS_ITS | Clinical Summary ---
Author Organization [facility] Address [address] [place] [address] Phone Care Team Providers Care Second Cook And Baker Name Role Phone Altagracia Stanton MD Primary Care Provider [phone] Encounters Date Type Department Care Team Description 01/21/2025 9:00 AM EDT - 01/21/2025 11:59 PM EDT Hospital [facility]counter [facility] at [address] [address] Encounter for screening mammogram for breast cancer Discharge Disposition: Home or Self Care from Last 3 Months Surgical History Surgery Date Site/Laterality Comments HYSTERECTOMY 1976 PROCEDURE: HISTORICAL HYSTERECTOMY APPENDECTOMY 1978 PROCEDURE: CO APPENDECTOMY BREAST LUMPECTOMY 1988 Right PROCEDURE: HISTORICAL BREAST LUMPECTOMY BLADDER SUSPENSION 2001 PROCEDURE: HISTORICAL BLADDER SUSPENSION OTHER SURGICAL HISTORY 2018 PROCEDURE: CO BIOPSY THYROID PERCUTANEOUS CORE NEEDLE CARDIAC SURGERY 2016 PROCEDURE: HISTORICAL HEART SURGERY(ASD,VSD,VALVES); COMMENT: Ablation of Heart Node PACEMAKER IMPLANT 2020 PROCEDURE: HISTORICAL PACEMAKER OTHER SURGICAL HISTORY 1995 PROCEDURE: LAPAROSCOPIC INTEST RESECT/ANAST; COMMENT: Right colon volvulus & gallbladder resection OTHER SURGICAL HISTORY 1983 PROCEDURE: CO PALATOPLASTY CLEFT PALATE MAJOR REVJ; COMMENT: Redo OTHER SURGICAL HISTORY 1938 PROCEDURE: CO PALATOPLASTY CLEFT PALATE MAJOR REVJ; COMMENT: Cleft palate & lip repair BLADDER SUSPENSION 2001 PROCEDURE: HISTORICAL BLADDER SUSPENSION HERNIA REPAIR 2015 PROCEDURE: LAPAROSCOPY, INGUINAL HERNIA REPAIR; COMMENT: + intestine resection OTHER SURGICAL HISTORY 2016 PROCEDURE: CO UNLISTED PROCEDURE CARDIAC SURGERY; COMMENT: Cardiac Abalation OTHER SURGICAL HISTORY 2020 PROCEDURE: CO INS NEW/RPLC PRM PACEMAKER W/TRANSV ELTRD VENTR OTHER SURGICAL HISTORY 11/18/2023 N/A PROCEDURE: CO LAPS RPR PARAESPHGL HRNA INCL FUNDPLSTY W/MESH Medical History Medical History Date Comments History of breast cancer DX:Hist ory of breast cancer Acquired hammer toe of left foot DX:Acquired hammer toe of left foot Atrial fibrillation ([facility]/HCC V24, [facility]/HCC V28) DX:Atrial fibrillation (HCC) Bilateral sensorineural hearing [...] hy perlipidemia Knee osteoarthritis DX: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 Nodule of right lung DX:Nodule o f right lung Observed sleep apnea DX:Observed sleep apnea; COMMENT: unable to tolerate CPAP Osteoporosis DX:Osteoporosis Paroxysmal SVT (supraventric ular tachycardia) (CMS/[facility] V24) DX:Paroxysmal SVT (supraven tricular tachycardia) ([facility]) Thyroid goiter DX:Thyroid goite r History of [...] Description 05/16/2025 2:30 PM EST Ancillary Procedure [facility] [address] [place] [address] Health Maintenance Due Date Last Done Comments Cholesterol Screening (Lipid Panel) 05/12/2022 Falls Risk Assessment 05/12/2022 Medicare Annual Wellness Visit 05/12/2022 Osteoporosis Screening (Bone Density Screening) 05/12/2022 Social Influencers of Health Screening 05/12/2022 Hypertension/CHF/CAD Annual BMP Blood Test 01/02/2024 Depression Screening 06/09/2024 Influenza Vaccine (#1) 2025 , 01/31/2023, 03/05/2021, Additional history exists DTaP,Tdap,and Td Vaccines (3 - Td or Tdap) 03/08/2029 03/08/2019, 03/15/2015 Pneumococcal Vaccine: 50+ Years Completed 02/25/2019, 02/16/2016, 09/14/2015, Additional history exists Zoster Vaccines Completed 03/12/2023, 12/07, 07/18/2008, Additional history exists RSV Immunization Adult Patients Completed 06/05/2023 COVID-19 Vaccine Completed 11/15/2024, , 03/17/2023, Additional history exists HIB Vaccines Aged Out No longer eligi [...] 20 months Aged Out No longer eligible based on patient's age to complete this topic Varicella Vaccines Aged Out No longer eligible based on patient's age to complete this topic Procedures Procedure Name Priority Date/Time Associated Diagnosis Comments MG MAMMO DIGITAL SCREENING W ENRICO BILAT Routine 01/21/2025 10:06 AM EDT Encounter for screening mammogram for breast cancer from Last 3 Months Results * MG Mammo Digital Screening w Enrico bilat (01/21/2025 10:06 AM EDT) Anatomical Region Laterality Modality Breast Bilateral Mammography 01/21/2025 10:1 2 AM EDT Impressions 01/21/2025 10:20 AM EDT No mammographic evidence of new or recurrent malignancy. No suspicious interval change. A negative mammogram in the presence of a clinically suspicious palpable abnormality does not preclude the possibility of malignancy or alter the indications for biopsy. ASSESSMENT: BI-RADS 2: BENIGN RECOMMENDATION(S): 1: Routine screening mammogram BILATERAL in 1 year. [facility] location[facility] [address], [address] -------- FINAL REPORT -------- Dictated By: Pravin Mccarthy Dictated Date: 01/21/2025 10:12 ET Assigned Physician: Pravin Mccarthy Reviewed and Electronically Signed By: Pravin Mccarthy Signed Date: 01/21/2025 10:20 ET Workstation ID: [id number] Transcribed By: Self Edit Transcribed Date: 01/21/2025 10:12 ET Narrative 01/21/2025 10:20 AM EDT EXAM: SCREENING MAMMOGRAPHY, BILATERAL HISTORY: SCREENING. Personal history of right breast cancer. Right lumpectomy 1987. Mother diagnosed with breast cancer age 90. COMPARISON: 01/19/24, 11/08/22, 11/06/21, 11/02/20 TECHNIQUE: Synthesized CC and MLO projections of each breast. Tomosynthesis of each breast in the CC and MLO projections. ADDITIONAL IMAGING: None Computer-aided detection was employed with the [employer] AI 3-D. TISSUE DENSITY: There are scattered areas of fibroglandular density. (BI-RADS category B) FINDINGS: A power generator obscures some of the anatomy in the left axilla. RIGHT BREAST: No suspicious mass. No suspicious calcification. No distortion. There is a scar marker with unchanged postlumpectomy appearance in the right retroareolar region. LEFT BREAST: No suspicious mass. No suspicious calcification. No distortion. No additional suspicious left breast findings Procedure Note Pravin Mccarthy MD - 01/21/2025 EXAM: SCREENING MAMMOGRAPHY, BILATERAL HISTORY: SCREENING. Personal history of right breast cancer. Rightlumpectomy 1987. Mother diagnosed with breast cancer age 90. COMPARISON: 01/19/24, 11/08/22, 11/06/21, 11/02/20 TECHNIQUE: Synthesized CC and MLO projections of each breast.Tomosynthesis of each breast in the CC and MLO projections. ADDITIONAL IMAGING: None Computer-aided detection was employed with the [employer] AI 3-D. TISSUE DENSITY: There are scattered areas of fibroglandular density.(BI-RADS category B) FINDINGS: A power generator obscures some of the anatomy in the left axilla. RIGHT BREAST: No suspicious mass. No suspicious calcification. No distortion. There coleman scar marker with unchanged postlumpectomy appearance in the rightretroareolar region. LEFT BREAST: No suspicious mass. No suspicious calcification. No distortion. Noadditional suspicious left breast findings IMPRESSION: No mammographic evidence of new or recurrent malignancy. No suspicious interval change. A negative mammogram in the presence of a clinically suspicious palpableabnormality does not preclude the possibility of malignancy or alter theindications for biopsy. ASSESSMENT: BI-RADS 2: BENIGN RECOMMENDATION(S): 1: Routine screening mammogram BILATERAL in 1 year. [facility] location[facility] [address], [address] -------- FINAL REPORT -------- Dictated By: Pravin Mccarthy Dictated Date: 01/21/2025 10:12 ET Assigned Physician: Pravin Mccarthy Reviewed and Electronically Signed By: Pravin Mccarthy Signed Date: 01/21/2025 10:20 ET Workstation ID: [id number] Transcribed By: Self Edit Transcribed Date: 01/21/2025 10:12 ET us Self Referral Sppl IMG BI PROCEDURES Final Resul t from Last 3 Months Insurance [employer] MEDICARE Care Teams Second Cook And Baker Relationship Specialty Start Date End Date Altagracia Stanton MD [address] [place] [address] [phone] PCP - General Internal Medicine 01/21/25
== END 2025-03-01 11:40 | disposition home or self-care (01) ==
LOC: HO.HVS 11:08
PROVIDERS: PCP Internal Medicine; Visit Provider Surgery Vascular Surgery
DX: I83.11 Varicose veins of right lower extremity with inflammation (principal)
CPT/HCPCS: 99204

== ENCOUNTER → 2025-03-01 11:07 | Outpatient (BNVA) | payer MEDICARE, SELFPAY | PROVIDERS: PCP Internal Medicine; Visit Provider Surgery Vascular Surgery | DX: I83.11 Varicose veins of right lower extremity with inflammation (principal) | CPT/HCPCS: 99202 ==

== ENCOUNTER 2025-03-29 14:45 | Outpatient (AMB) | payer MEDICARE, SELFPAY ==
--- NOTE | 2025-03-29 14:49 | A.OFFPC_ITS ---
Vital Signs 03/29/25 14:57 Height 5 ft 6.5 in Weight 168 lb BMI 26.7 BP 128/72 Blood Pressure Location Rt brachial Position Sitting Respiration 16 Pulse 70 Pulse Source Pulse Oximeter Temp 97.9 F Temp Source Oral Pulse Oximetry (%) 94 Oxygen Delivery Method Room Air Intake Visit Reasons: ED / fu from [facility]- see comments Intake Note: follow up Horticultural Farmer Required: No Allergies ciprofloxacin (Ciprofloxacin) Allergy (Severe, Verified 03/29/25 14:54) WHOLE DIGESTIVE SYSTEM SHUT DOWN gluten (GLUTEN) Allergy (Intermediate, Verified 03/29/25 14:54) DIARRHEA Sulfa (Sulfonamide Antibiotics) Allergy (Mild, Verified 03/29/25 14:54) NAUSEA & VOMITING, vomiting Doxycycline Hyclate Allergy (Unknown, Uncoded 09/23/24 14:45) severe thrush gluten Allergy (Unknown, Uncoded 09/23/24 14:45) (+) celiacs cipro Adverse Reaction (Unknown, Uncoded 09/23/24 14:45) n/v sulfa Adverse Reaction (Unknown, Uncoded 09/23/24 14:45) vomiting Tobacco use date assessed: 03/29/25 Fall risk assessment: 1 Fall in past year Last assessed Fall Risk: 03/29/25 Dental Screening Dental Screen Date: 03/29/25 Did you have a dental visit in the last 12 months?: Yes Did you have a dental problem in the last 6 months where you did not have access to dental care?: No Was dental information given to patient?: Patient has dentist HPI HPI Comments History of Present Illness Details The patient is a 84 year old female with a past medical history of atrial fibrillation, GERD, hyperlipidemia, htn, s/p PPM, ibs, PAIUTE-SHOSHONE presenting for follow up. She was recently in [facility]- with dizziness, lightheadedness, nausea. CT head, neck-no CVA. Blood work and urine culture. Blood pressure was high. No reason for symptoms found. Her torsemide had been increased soon before and so she returned to her previous dosing She endorses chronic fatigue. She is going to bed at 10, wakes up at 7 . Previous apnea testing was normal. There is a lot of stress in the family. She does feel that her husbands memory is worsening CV: on eliquis, zetia, torsemide and ASA. Follows with Dr Rodriguez. Previously Dr Palmer. PPM. Reports left side of body more swollen than right, particularly her left leg. She has bilateral varicosities, spider veins. She had venous studies showing incompetent valves. She was recently seen by cardiology and her to rsemide was increased. MSK: OA. Has had knee drainage in the past. Recently tripped and fell on the left knee and hip. She has some left knee bruising but it is improving GERD: stable on prilosec Follows with [facility], Dr Miller. Colonoscopy: 2023 Mammography: Jan 2025 [facility]. Tdap today ROS see HPI PHYSICAL EXAM: GENERAL: Alert and oriented x 3. NAD EYES: EOMI. Anicteric. HENT: Moist mucous membranes. enlarged heterogenous thyroid LUNGS: Clear to auscultation bilaterally. CARDIOVASCULAR: Regular rate and rhythm. No JVD. ABDOMEN: Soft, non-tender +bs EXTREMITIES: Non pitting trace left edema. Non-tender. Spider veins SKIN: No rashes or lesions. Warm. NEUROLOGIC: No focal neurological deficits. CN II-XII grossly intact PSYCHIATRIC: Cooperative. Appropriate mood and affect [facility] Medical History Cataracts, both eyes Kidney disease Hiatal hernia Celiac disease Hyperlipidemia HTN (hypertension) Duodenal ulcer SVT (supraventricular tachycardia) Atrial fibrillation Thyroid nodule Seasonal allergic rhinitis Nodule of upper lobe of right lung Arthritis of right knee GERD (gastroesophageal reflux disease) Vitamin D deficiency Cancer of right breast Diastolic heart failure Pacemaker Surgical History History of colonoscopy (~05/16/14) S/P GODWIN (total abdominal hysterectomy) History of toe surgery Hx of tooth extraction History of bladder suspension procedure Hx of cardiac pacemaker H/O partial resection of colon H/O partial mastectomy History of cardiac radiofrequency ablation History of cholecystectomy History of appendectomy History of hysterectomy Hx of corrected cleft lip and palate Family History Mother No problems noted. Father No problems noted. Social History Housing: House Alcohol intake: never Patient Tobacco Use Status: Former Tobacco user Tobacco use type: Cigarette e-Cigarette/Vaping Use: Never Used Second Hand Smoke Exposure: No service: No Current occupational status: retired Cognitive needs: No Hearing needs: Yes (b/l hearing aids ) Vision needs: Yes ( rx Glasses) Questionnaire PHQ-9 Over the last 2 weeks, how often have you been bothered by any of the following problems? 1. Little interest or pleasure in doing things: not at all 2. Feeling down, depressed, or hopeless: not at all 3. Trouble falling or staying asleep, or sleeping too much: not at all 4. Feeling tired or having little energy: not at all 5. Poor appetite or overeating: not at all 6. Feeling bad about yourself - or that you are a failure or have let yourself or your family down: not at all 7. Trouble concentrating on things, such as reading the newspaper or watching television: not at all 8. Moving or speaking so slowly that other people could have noticed. Or the opposite - being so fidgety or restless that you have been moving around a lot more than usual: not at all 9. Thoughts that you would be better off or of hurting yourself in some way: not at all Total score: 0 Depression Screening Interpretation: Negative Depression Screening Done: Yes 37018 - PHQ-9 Billing: Yes Source: Developed by Drs. Karson Cartwright, Alecia Tobin, Junior Alcaraz and colleagues, with an educational antonio from [email or web address]. Thrive Questionnaire Date Thrive assessed: 03/22/25 I am a: Patient What is your living situation today?: I have a steady place to live Within the past 12 months, did the food you bought not last and you didn't have the money to get more?: Never true Within the past 12 months, did you worry whether your food would run out before you got money to buy more?: Never true Do you have trouble paying for medicines?: No Do you have trouble getting transportation to medical appointments?: No Do you have trouble paying your heating and electricity bill?: No Do you have trouble taking care of your child, family member or friend?: No Do you have trouble with day-to-day activities such as bathing, preparing meals, shopping, managing finances, etc.?: No Are you currently unemployed and looking for a job?: No Are you interested in more education?: No Please select the resources that you would like help with: None Currently or been in a relationship where the following occur: No concerns reported THRIVE Score: 0 AUDIT C Alcohol Use Questionnaire (AUDIT-C) 1. How often do you have a drink containing alcohol?: Never Total Score: 0 RAFAL-7 AMB Questionnaire RAFAL-7 Date RAFAL - 7 assessed: 03/29/25 Feeling nervous, anxious, or on edge: 0 = Not at all Not being able to stop or control worryin = Several days Worrying too much about different things: 1 = Several days Trouble relaxin = Not at all Being so restless that it is hard to sit still: 0 = Not at all Becoming easily annoyed or irritable: 0 = Not at all Feeling afraid as if something awful might happen: 0 = Not at all Total RAFAL-7 score (0-4 normal; 5-9 mild; 10-14 moderate; 15-21 severe): 2 Source: Developed by Drs. Karson Cartwright, Alecia Tobin, Junior jones nd colleagues, with an educational antonio from [email or web address]. RAFAL-7 Assessment Billing RAFAL-7 Assessment Tool: RAFAL-7 Assessment 58628 Physical exam (Primary Care) Vital Signs: Last Vital Signs Temp 97.9 F 03/29/25 14:57 Pulse 70 03/29/25 14:57 Resp 16 03/29/25 14:57 BP 128/72 03/29/25 14:57 Pulse Ox 94 03/29/25 14:57 Oxygen Delivery Method Room Air 03/29/25 14:57 BMI result Body Mass Index 26.7 Tobacco/Smoking Status: Tobacco use Status Tobacco use date assessed 03/29/25 03/29/25 14:59 Patient Tobacco Use Status Former Tobacco user 03/29/25 14:57 Tobacco use type Cigarette 03/29/25 14:57 e-Cigarette/Vaping Use Never Used 03/29/25 14:57 PHQ-9: PHQ-9 Score PHQ-9: Total score 0 03/30/25 14:39 Depression Screening Interpretation: Negative Thrive Assessment: Date of Thrive Assessment Date Thrive assessed 03/22/25 03/29/25 14:51 Currently or been in a relationship where the following occur: No concerns reported Immunizations Boostrix Tdap 2.5 Lf unit-8 mcg-5 Lf/0.5 mL intramuscular syringe Performing Provider: Altagracia Stanton MD Performing Location: [facility] Administered by: Haydee Pena CMA on 03/29/25 15:50 Dose Route Admin Location Dispensed Lot Number Expiration Date [employer] Statistician 0.5 mL IM Left Deltoid 0.5 mL [id number] 05/06/27 84347-636-68 [employer] Total Dispensed Waste 0.5 mL 0 % VIS Given Date VIS Provided VIS Publication Date 03/29/25 Single Vaccine 21 Eligibility Eligibility Date Funding Source Not [facility] Eligible 03/29/25 Private Coding Level of Care Code Est Pt Level 4 (13561) Complex EM visit Add On G2211 Diagnoses Chronic diastolic heart failure I50.32 Heart failure chronicity: chronic Longstanding persistent atrial fibrillation I48.11 Atrial fibrillation type: longstanding persistent Primary hypertension I10 Hypertension type: primary hypertension Fatigue, unspecified type R53.83 Fatigue type: unspecified Additional Codes RAFAL-7 Assessment Billing - RAFAL-7 Assessment Tool: RAFAL-7 Assessment 44056 ([id number]) PHQ-9 - 53683 - PHQ-9 Billing: Yes ([id number]) Assessment & Plan Assessment & Plan (1) Diastolic heart failure: Code(s): I50.30 - Unspecified diastolic (congestive) heart failure Category: Medical Qualifiers: Heart failure chronicity: chronic Qualified Code(s): I50.32 - Chronic diastolic (congestive) heart failure (2) Atrial fibrillation: Code(s): I48.91 - Unspecified atrial fibrillation Category: Medical Qualifiers: Atrial fibrillation type: longstanding persistent Qualified Code(s): I48.11 - Longstanding persistent atrial fibrillation (3) HTN (hypertension): Code(s): I10 - Essential (primary) hypertension Category: Medical Qualifiers: Hypertension type: primary hypertension Qualified Code(s): I10 - Essential (primary) hypertension (4) Fatigue: Code(s): R53.83 - Other fatigue Category: Medical Qualifiers: Fatigue type: unspecified Qualified Code(s): R53.83 - Other fatigue Plan 84 year old for follow up Blood pressure is well controlled Fatigue-labs ordered. TSH, thyroid us-for nodules Follow up six months Orders: Orders Lyme IgG/IgM w/reflex to WB 03/29/25 E04.1 - Nontoxic single thyroid nodule, I10 - Essential (primary) hypertension, I48.11 - Longstanding persistent atrial fibrillation, R53.83 - Other fatigue Thyroid Peroxidase Antibodies 03/29/25 E04.1 - Nontoxic single thyroid nodule, I10 - Essential (primary) hypertension, I48.11 - Longstanding persistent atrial fibrillation, R53.83 - Other fatigue Comprehensive Met. Panel 03/29/25 R53.83 - Other fatigue IRON PROFILE 03/29/25 R53.83 - Other fatigue TDaP Immunization 03/29/25 Z23 - Encounter for immunization Vitamin B12 and Folate 03/29/25 E04.1 - Nontoxic single thyroid nodule, I10 - Essential (primary) hypertension, I48.11 - Longstanding persistent atrial fibrillation, R53.83 - Other fatigue TSH reflex Free T4 03/29/25 E04.1 - Nontoxic single thyroid nodule, I10 - Essential (primary) hypertension, I48.11 - Longstanding persistent atrial fibrillation, R53.83 - Other fatigue Medications: Refilled apixaban (Eliquis) 5 mg PO BID 180 tabs 3RF ezetimibe 10 mg PO DAILY 90 tabs 3RF E78.00 - Pure hypercholesterolemia, unspecified
[2025-03-29 14:57] VITALS: BP 128/72; PULSE 70; RESP 16; TEMP 36.6; O2SAT 94; BMI 26.7
--- OUTSIDE RECORDS SUMMARY | 2025-03-29 19:50 | XMS_ITS | Clinical Summary ---
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
--- OUTSIDE RECORDS SUMMARY | 2025-03-29 19:50 | XMS_ITS | Clinical Summary ---
Author Organization [facility] Address [address] [place] [phone] Phone Care Team Providers Care Cream Buyer Name Role Phone Altagracia Stanton MD Primary Care Provider [phone] Allergies Active Allergy Reactions Criticality Noted Date Comments Ciprofloxacin GI intolerance,Nausea Only,Unknown 11/09/2021 Other reaction(s): digestive system shut down ciprofloxacin Sulfa (Sulfonamide Antibiotics) Nausea And Vomiting 10/20/2023 Medications No known medications Active Problems No known active problems Encounters Date Type Department Care Team Description 03/11/2025 8:30 AM EDT Ancillary Procedure [facility] [address] [place] [address] [place] [phone] Atrial fibrillation, unspecified type (CMS/HCC V24, CMS/HCC V28); Supraventricular tachycardia, unspecified (CMS/HCC V24) 03/08/2025 7:26 PM EDT - 03/08/2025 11:15 PM EDT Emergency [facility] Emergency [address] [place] [phone] Mitch Patricia MD Lawrenz, Cedric W, MD Hypertension, unspecified type (Primary Dx); Pressure in head; Abnormal urinalysis Discharge Disposition: Home or Self Care 01/21/2025 9:00 AM EDT - 01/21/2025 11:59 PM EDT Hospital En[facility] at [address] [phone] Encounter for screening mammogram for breast cancer Discharge Disposition: Home or Self Care from Last 3 Months Surgical History Surgery Date Site/Laterality Comments HYSTERECTOMY 1976 PROCEDURE: HISTORICAL HYSTERECTOMY APPENDECTOMY 1978 PROCEDURE: GA APPENDECTOMY BREAST LUMPECTOMY 1988 Right PROCEDURE: HISTORICAL BREAST LUMPECTOMY BLADDER SUSPENSION 2001 PROCEDURE: HISTORICAL BLADDER SUSPENSION OTHER SURGICAL HISTORY 2018 PROCEDURE: GA BIOPSY THYROID PERCUTANEOUS CORE NEEDLE CARDIAC SURGERY 2016 PROCEDURE: HISTORICAL HEART SURGERY(ASD,VSD,VALVES); COMMENT: Ablation of Heart Node PACEMAKER IMPLANT 2020 PROCEDURE: HISTORICAL PACEMAKER OTHER SURGICAL HISTORY 1995 PROCEDURE: LAPAROSCOPIC INTEST RESECT/ANAST; COMMENT: Right colon volvulus & gallbladder resection OTHER SURGICAL HISTORY 1983 PROCEDURE: GA PALATOPLASTY CLEFT PALATE MAJOR REVJ; COMMENT: Redo OTHER SURGICAL HISTORY 1938 PROCEDURE: GA PALATOPLASTY CLEFT PALATE MAJOR REVJ; COMMENT: Cleft palate & lip repair BLADDER SUSPENSION 2001 PROCEDURE: HISTORICAL BLADDER SUSPENSION HERNIA REPAIR 2015 PROCEDURE: LAPAROSCOPY, INGUINAL HERNIA REPAIR; COMMENT: + intestine resection OTHER SURGICAL HISTORY 2016 PROCEDURE: GA UNLISTED PROCEDURE CARDIAC SURGERY; COMMENT: Cardiac Abalation OTHER SURGICAL HISTORY 2020 PROCEDURE: GA INS NEW/RPLC PRM PACEMAKER W/TRANSV ELTRD VENTR OTHER SURGICAL HISTORY 11/18/2023 N/A PROCEDURE: GA LAPS RPR PARAESPHGL HRNA INCL FUNDPLSTY W/MESH [...] hy perlipidemia Knee osteoarthritis 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 Nodule of right [...] Sign Reading Time Taken Comments Blood Pressure 151/79 03/11/2025 9:09 AM EDT Pulse 60 03/08/2025 10:01 PM EDT Temperature 36.7 C (98.1 F) 03/08/2025 10:01 PM EDT Respiratory Rate 14 03/08/2025 10:01 PM EDT Oxygen Saturation 98% 03/08/2025 10:01 PM EDT Inhaled Oxygen Concentration - - Weight 76.2 kg (168 lb) 03/11/2025 9:09 AM EDT Height 167.6 cm (5' 6 ) 03/11/2025 9:09 AM EDT Body Mass Index 27.12 03/11/2025 9:09 AM EDT Plan of Treatment Health Maintenance Due Date Last Done Comments Cholesterol Screening (Lipid Panel) 05/12/2022 Falls Risk Assessment 05/12/2022 Medicare Annual Wellness Visit 05/12/2022 Osteoporosis Screening (Bone Density Screening) 05/12/2022 Social Influencers of Health Screening 05/12/2022 Depression Screening 06/09/2024 Hypertension/CHF/CAD Annual BMP Blood Test 03/08/2026 03/08/2025 DTaP,Tdap,and Td Vaccines (3 - Td or Tdap) 03/08/2029 03/08/2019, 03/15/2015 Pneumococcal Vaccine: 50+ Years Completed 02/25/2019, 02/16/2016, 09/14/2015, Additional history exists Zoster Vaccines Completed 03/12/2023, 12/07, 07/18/2008, Additional history exists RSV Immunization Adult Patients Completed 06/05/2023 COVID-19 Vaccine Completed 02/17/2025, 02/2025, 02/05/2024, Additional history exists Influenza Vaccine Completed 02/17/2025, , 02/05/2024, Additional history exists HIB Vaccines Aged Out [...] Procedure Name Priority Date/Time Associated Diagnosis Comments TRANSTHORACIC ECHOCARDIOGRAM (TTE) COMPLETE Routine 03/11/2025 9:09 AM EDT Atrial fibrillation, unspecified type (CMS/HCC V24, CMS/HCC V28) Supraventricular tachycardia, unspecified (CMS/HCC V24) ECG ANNOTATED 03/11/2025 CT ANGIO HEAD/NECK WO AND/OR W CONTRAST STAT 03/08/2025 9:19 PM EDT [place] URINE CULTURE TUBE STAT 03/08/2025 9:04 PM EDT URINALYSIS WITH REFLEX MICROSCOPIC AND CULTURE STAT 03/08/2025 9:04 PM EDT URINALYSIS WITH REFLEX MICROSCOPIC AND CULTURE STAT 03/08/2025 9:04 PM EDT CULTURE URINE STAT 03/08/2025 9:04 PM EDT XR CHEST 1 VIEW STAT 03/08/2025 8:37 PM EDT TROPONIN I HIGH SENSITIVITY STAT 03/08/2025 8:21 PM EDT PROTHROMBIN TIME WITH INR STAT 03/08/2025 8:21 PM EDT POCT GLUCOSE BLOOD Routine 03/08/2025 8: 18 PM EDT RHYTHM ECG, REPORT Routine 03/08/2025 8: 08 PM EDT HEPATIC FUNCTION PANEL STAT Add-on 7:58 PM EDT CBC WITH AUTO DIFFERENTIAL STAT 03/08/2025 7:58 PM EDT MAGNESIUM STAT 03/08/2025 7:58 PM EDT BASIC METABOLIC PANEL STAT 03/08/2025 7:58 PM EDT CBC AND DIFFERENTIAL STAT 03/08/2025 7:58 PM EDT ECG 12-LEAD STAT 03/08/2025 7:45 PM EDT MG MAMMO DIGITAL SCREENING W ENRICO BILAT Routine 01/21/2025 10:06 AM EDT Encounter for screening mammogram for breast cancer from Last 3 Months Results * (ABNORMAL) TRANSTHORACIC ECHOCARDIOGRAM (TTE) COMPLETE (03/11/2025 9:09 AM EDT) Left Atrium Minor [place] 5.8 cm CV PACS Left Atrium Major [place] 5.8 cm CV PACS LA Area Sys (A2C) 22 cm2 CV PACS LA Area Sys (A4C) 22 cm2 CV PACS LA Volume (BP) 71 mL CV PACS RA Area 24.8 cm2 CV PACS RA 2D Volume 77 mL CV PACS AV Mean Gradient 2 mmHg CV PACS Ao VTI 29.4 cm CV PACS AV Peak Tanmay 1.2 m/s CV PACS AV Peak Gradient 6 mmHg CV PACS AV Area Continuity Equation 1.9 cm2 CV PACS AV Area Peak Velocity 2.0 cm2 CV PACS Aortic Sinus Valsalva 3.5 cm CV PACS Ascending Aorta 3.0 cm CV PACS IVSD 0.7 0.6 - 0.9 cm CV PACS LVIDD 3.8 3.8 - 5.2 cm CV PACS LVIDS 2.4 2.2 - 3.5 cm CV PACS LVOT Diameter 1.8 cm CV PACS LVOT Mean Tanmay 0.6 m/s CV PACS LVOT Mean Grad 1 mmHg CV PACS LVOT Peak VTI 21.7 cm CV PACS LVOT Peak Tanmay 0.9 m/s CV PACS LVOT Peak Gradient 4 mmHg CV PACS LVPWD 0.9 0.6 - 0.9 cm CV PACS MV E' Tissue Velocity Lateral 11 cm/s CV PACS MV E' Tissue Velocity Septal 9 cm/s CV PACS LVOT Area 2.5 cm2 CV PACS LVOT Stroke Volume 55 mL CV PACS MV Deceleration [place] 4.4 m/s2 CV PACS E Wave Deceleration Time 210 119 - 242 ms CV PACS MV PHT 61 ms CV PACS MV Peak E Tanmay 1.00 m/s CV PACS MV Mean Gradient 1 mmHg CV PACS MV VTI 29.8 cm CV PACS Mitral Valve Max Velocity 1.1 m/s CV PACS MV Peak Gradient 4 mmHg CV PACS MV Area PHT 3.2 cm2 CV PACS MV Area Continuity Equation 1.9 cm2 CV PACS PV Acceleration Time 134 ms CV PACS PV Acceleration Time 102 ms CV PACS PV Acceleration Time 118 ms CV PACS RV Diastolic Basal Dimension 3.9 2.5 - 4.1 cm CV PACS RV S' 15 cm/s CV PACS TAPSE 20 mm CV PACS TR Peak Velocity 3.40 m/s CV PACS TR Peak Gradient 47 mmHg CV PACS E/E' Ratio Septal 11 CV PACS E/E' Ratio Averaged 10 CV PACS Relative Wall Thickness ratio 0.47(A) 0.22 - 0.42 CV PACS LVOT:AV VTI Index 0.74 CV PACS FS 37 % CV PACS LV Mass 2D 86 66 - 150 g CV PACS MV VTI:LVOT VTI ratio 1.4 CV PACS LVOT flow 153 mL/s CV PACS AV Velocity Ratio 0.75 CV PACS E/E' Ratio Lateral 9 CV PACS LVOT Stroke Index 30 mL/m2 CV PACS Ascending Aorta Index 1.61 cm/m2 CV PACS RA 2D Volume Index 41 15 - 27 mL/m2 CV PACS TIP Index (VTI) 1.01 cm2/m2 CV PACS TIP Index (Pk Tanmay) 1.08 cm2/m2 CV PACS LVIDD Index 2.04 cm/m2 CV PACS LVIDS Index 1.29 cm/m2 CV PACS LA Volume Index (BP) 38 mL/m2 CV PACS LV Mass Index 2D 46 44 - 88 g/m2 CV PACS BSA 1.88 m2 CV PACS RV Free Wall Peak S' 15 cm/s CV PACS RA Major [place] 5.9 cm CV PACS RA Major [place] Index 3.2(A) 2.2 - 2.8 cm/m2 CV PACS AV Area 2D 2.0 cm2 CV PACS TIP Index (2D) 1.08 cm2/m2 CV PACS AV Area Index 1.1 CV PACS Anatomical Region Laterality Modality Ultrasound Narrative 03/11/2025 3:19 PM EDT Left ventricle cavity size is normal. Left ventricular systolic function is in the normal range with an ejection fraction of 60-65%. No wall motion abnormalities. Normal wall thickness. Right ventricle cavity is normal. Right ventricular systolic function is normal. Aortic valve leaflets are mildly thickened. No stenosis or insufficiency. Trivial MR. Dilated RV and right atrium. The right atrium is markedly dilated. A pacing wire can be seen in the right atrium and crossing the tricuspid valve. It looks like it is heading to the very base of the interventricular septum. There is mild (1-2+) central tricuspid insufficiency. It is possible that this is due to the pacing wire. The peak TR gradient is 47 mmHg There is an echo report from [facility] from 2022 which says that the left atrium is mildly dilated. The right ventricle mildly dilated. The pacer ICD wire visible. And there was only trace TR at that time with a dilated right atrium. Left Ventricle Left ventricle cavity size is normal. Wall thickness is normal. Systolic function is normal with an ejection fraction of 55-60%. There are no regional LV wall motion abnormalities. Indeterminate diastolic function. Right Ventricle Right ventricle cavity appears normal. Systolic function is normal. A pacer wire is present in the right ventricle. Left Atrium Left atrium cavity is mildly dilated. Right Atrium Right atrium cavity is moderately dilated. A pacer wire is present in the right atrium. IVC/SVC Inferior vena cava structure is normal. RA pressures is estimated to be 3 mmHg (IVC diameter <21 mm and decreases >50% during inspiration). Mitral Valve The leaflets are mildly thickened. There is trace regurgitation. There is no evidence of mitral valve stenosis. Tricuspid Valve Tricuspid valve structure is normal. There is mild regurgitation. There is no evidence of tricuspid valve stenosis. The pacer wire is obstructing coaptation of the septal leaflet. Aortic Valve The aortic valve is trileaflet. The leaflets are mildly thickened. There is no regurgitation or stenosis. Pulmonic Valve Visualized portions of the pulmonic valve appear normal. No significant pulmonic valve regurgitation. There is no evidence of pulmonic valve stenosis. Ascending Aorta The aorta appears normal in size. Pericardium Pericardium appears normal. There is no pericardial effusion. Study Details Overall the study quality was adequate. The underlying ECG rhythm was atrial fibrillation. Wall Scoring Baseline Score Index: 1.00 The left ventricular wall motion is normal. Randall Rodriguez MD CV ECHO PROCEDURES Final Result * ECG-Annotated (03/11/2025) us Provider Onbase ECG ORDERABLES Final Result * CT Angio Head/Neck wo and/or w Contrast (03/08/2025 9:19 PM EDT) Anatomical Region Laterality Modality Head and Neck Computed Tomogra phy 03/08/2025 10:1 1 PM EDT Impressions 03/08/2025 10:11 PM EDT 1. Unremarkable head CT. 2. Patent head and neck CTA. 3. Moderate narrowing of the origin of the right vertebral artery. 4. Dilated azygous vein suggesting volume overload. This document has been electronically signed by: Scott Whitaker MD on 03/08/2025 22:11:14 Narrative 03/08/2025 10:11 PM EDT INDICATION: Pressure sensation to shoulders, neck, and head CT Head without contrast. CT angiography head and neck with contrast. 3D Postprocessing. Comparison: None provided Findings: HEAD CT: No intra-axial mass, midline shift, hydrocephalus, or acute hemorrhage. Mild cerebral atrophy. The visualized paranasal sinuses and mastoid air cells are normal. The orbits are within normal limits. No skull fracture. HEAD AND NECK CTA: Aortic arch and cervical great vessels are patent. No stenosis of the internal carotid arteries. Moderate narrowing of the origin of the right vertebral artery. Intracranial arteries are patent. No aneurysm, dissection, or occlusion. No abnormal intracranial enhancement. The visualized thyroid gland is unremarkable. No cervical mass or fluid collection. Lung apices clear. Dilated azygous vein. No acute fracture. Procedure Note Scott Whitaker MD - 03/08/2025 INDICATION: Pressure sensation to shoulders, neck, and head CT Head without contrast. CT angiography head and neck with contrast. 3D Postprocessing. Comparison: None provided Findings: HEAD CT: No intra-axial mass, midline shift, hydrocephalus, or acute hemorrhage. Mild cerebral atrophy. The visualized paranasal sinuses and mastoid air cells are normal. The orbits are within normal limits. No skull fracture. HEAD AND NECK CTA: Aortic arch and cervical great vessels are patent. No stenosis of the internal carotid arteries. Moderate narrowing of the origin of the right vertebral artery. Intracranial arteries are patent. No aneurysm, dissection, or occlusion. No abnormal intracranial enhancement. The visualized thyroid gland is unremarkable. No cervical mass or fluid collection. Lung apices clear. Dilated azygous vein. No acute fracture. IMPRESSION: 1. Unremarkable head CT. 2. Patent head and neck CTA. 3. Moderate narrowing of the origin of the right vertebral artery. 4. Dilated azygous vein suggesting volume overload. This document has been electronically signed by: Scott Whitaker MD on 03/08/2025 22:11:14 Mitch Patricia MD IMG CT PROCEDURES Final Result * (ABNORMAL) Urinalysis with reflex microscopic and culture (03/08/2025 9:04 PM EDT) Specific [place] Urine 1.012 1.003 - 1.030 LAB URINALYSIS - AUTOMATED METHOD 03/08/2025 9:33 PM [facility] pH, Urine 6.0 5.0 - 8.0 pH LAB URINALYSIS - AUTOMATED METHOD 03/08/2025 9:33 PM [facility] Leukocytes, Urine Trace(A) Negative LAB URINALYSIS - AUTOMATED METHOD 03/08/2025 9:33 PM [facility] Nitrite, Urine Negative Negative LAB URINALYSIS - AUTOMATED METHOD 03/08/2025 9:33 PM [facility] Protein, Urine Negative <=Trace mg/dL LAB URINALYSIS - AUTOMATED METHOD 03/08/2025 9:33 PM [facility] Glucose, Urine Negative Negative mg/dL LAB URINALYSIS - AUTOMATED METHOD 03/08/2025 9:33 PM [facility] Ketones, Urine Negative Negative mg/dL LAB URINALYSIS - AUTOMATED METHOD 03/08/2025 9:33 PM [facility] Urobilinogen, Urine 0.2 0.2 - 1.0 mg/dL LAB URINALYSIS - AUTOMATED METHOD 03/08/2025 9:33 PM [facility] Bilirubin, Urine Negative Negative LAB URINALYSIS - AUTOMATED METHOD 03/08/2025 9:33 PM [facility] Blood, Urine Negative Negative LAB URINALYSIS - AUTOMATED METHOD 03/08/2025 9:33 PM [facility] RBC, Urine 1.1 0 - 4 /HPF LAB URINALYSIS - AUTOMATED METHOD 03/08/2025 9:33 PM [facility] WBC, Urine 4.5(H) 0 - 4 /HPF LAB URINALYSIS - AUTOMATED METHOD 03/08/2025 9:33 PM EDT [facility] Squamous Epithelial, Urine 10 0 - 60 /LPF LAB URINALYSIS - AUTOMATED METHOD 03/08/2025 9:33 PM EDT [facility] Bacteria, Urine Negative Negative /HPF LAB URINALYSIS - AUTOMATED METHOD 03/08/2025 9:33 PM EDT [facility] Hyaline Casts, Urine 0.8 0 - 3 /LPF LAB URINALYSIS - AUTOMATED METHOD 03/08/2025 9:33 PM EDT [facility] Urine Urine specimen obtained by clean catch procedure / Unknown Non-blood Collection / Unknown 03/08/2025 9:04 PM EDT 03/08/2025 9:24 PM EDT us Mitch Patricia MD LAB URINE ORDERABLES Final Res ult [facility] [address] [place] [address], [place] [phone] * Bradford urine culture tube (03/08/2025 9:04 PM EDT) Extra Tube Hold for add-ons. 03/08/2025 11:01 PM EDT [facility] Comment:Auto resulted. Urine Urine specimen obtained by clean catch procedure / Unknown Non-blood Collection / Unknown 03/08/2025 9:04 PM EDT 03/08/2025 9:24 PM EDT us Mitch Patricia MD LAB URINE ORDERABLES Final Res ult [facility] [address] [place] [address], [place] [phone] * Culture urine (03/08/2025 9:04 PM EDT) Culture, Urine 10,000-49,000 CFU/mL Mixed urogenital bessie, no uropathogens present. Suggest repeat specimen if clinically indicated. 03/10/2025 8:41 AM EDT [facility] Urine Urine specimen obtained by clean catch procedure / Unknown Non-blood Collection / Unknown 03/08/2025 9:04 PM EDT 03/08/2025 9:33 PM EDT us Mitch Patricia MD LAB MICROBIOLOGY - GENERAL ORD ERABLES Final Result [facility] [address] [place] [address], [place] [phone] * XR Chest 1 View (03/08/2025 8:37 PM EDT) Anatomical Region Laterality Modality Body Radiographic Misty ging 03/09/2025 8:43 AM EDT Impressions 03/09/2025 9:11 AM EDT FINDINGS/IMPRESSION: Left chest wall pacemaker with single lead unchanged. Lungs are clear. No pleural effusion or pneumothorax. Cardiac silhouette is normal in size. Degenerative changes seen throughout the bones. -------- FINAL REPORT -------- Dictated By: GOLD COHEN Dictated Date: 03/09/2025 08:43 ET Assigned Physician: GOLD COHEN Reviewed and Electronically Signed By: GOLD COHEN Signed Date: 03/09/2025 09:11 ET Workstation ID: [id number] Transcribed By: Self Edit Transcribed Date: 03/09/2025 08:43 ET Narrative 03/09/2025 9:11 AM EDT XR CHEST 1 VIEW INDICATION: Dizziness TECHNIQUE: XR CHEST 1 VIEW COMPARISON: 11/18/2023 Procedure Note Gold Cohen MD - 03/09/2025 XR CHEST 1 VIEW INDICATION: Dizziness TECHNIQUE: XR CHEST 1 VIEW COMPARISON: 11/18/2023 IMPRESSION: FINDINGS/IMPRESSION: Left chest wall pacemaker with single lead unchanged.Lungs are clear. No pleural effusion or pneumothorax. Cardiacsilhouette is normal in size. Degenerative changes seen throughout thebones. -------- FINAL REPORT -------- Dictated By: GOLD COHEN Dictated Date: 03/09/2025 08:43 ET Assigned Physician: GOLD COHEN Reviewed and Electronically Signed By: GOLD COHEN Signed Date: 03/09/2025 09:11 ET Workstation ID: [id number] Transcribed By: Self Edit Transcribed Date: 03/09/2025 08:43 ET Mitch Patricia MD IMG XR PROCEDURES Final Result * Troponin I high sensitivity (03/08/2025 8:21 PM EDT) [facility] High Sensitivity Troponin I 12 <=54 ng/L LAB CHEMISTRY METHOD 03/08/2025 9:01 PM EDT [facility] Blood Venous blood specimen / Unknown Venipuncture / Unknown 03/08/2025 8:21 PM EDT 03/08/2025 8:25 PM EDT Narrative [facility] - 03/08/2025 9:01 PM EDT High levels of biotin in samples may falsely decrease hsTroponin values. Use caution when interpreting hsTroponin results in patients taking biotin who exhibit renal impairment (eGFR <60) or in patients taking more than 20 mg/day of biotin. Mitch Patricia MD LAB BLOOD ORDERABLES Final Res ult [facility] [address] [place] [address], [place] [phone] * Prothrombin time with INR (03/08/2025 8:21 PM EDT) [facility] Protime 12.5 10.6 - 13.9 sec LAB COAGULATION METHOD 03/08/2025 8:45 PM EDT [facility] INR 1.0 LAB COAGULATION METHOD 03/08/2025 8:45 PM EDT [facility] Blood Venous blood specimen / Unknown Venipuncture / Unknown 03/08/2025 8:21 PM EDT 03/08/2025 8:25 PM EDT Mitch Patricia MD LAB BLOOD ORDERABLES Final Res ult [facility] [address] [place] [address], [place] [phone] * (ABNORMAL) POCT Glucose, blood (03/08/2025 8:18 PM EDT) [facility] Glucose POCT 121(H) 70 - 100 mg/dL 03/08/2025 8:19 PM EDT [facility] Blood Capillary blood specimen / Unknown 03/08/2025 8:18 PM EDT 03/08/2025 8:20 PM EDT Mitch Patricia MD LAB POINT OF CARE TE ST DOCKED DEVICE UNSOLICITED RESULTS Final Result Performing Organization Address 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: yes Previous ECG: Previous ECG: Compared to current Interpretation: Interpretation: non-specific Quality: Tracing quality: Limited by artifact Rate: ECG rate assessment: normal Rhythm: Rhythm: paced Pacing: Capture: Complete Ectopy: Ectopy: none Comments: EKG shows ventricular paced rhythm at [address] depression in leads I and aVL, no ST elevation, no T wave inversions, normal axis, normal R wave progression, increased in rate by 18 bpm and otherwise unchanged compared with EKG from 01/29/2024, independently reviewed and interpreted contemporaneously by me as an abnormal but nonischemic EKG. Mitch Patricia MD ECG ORDERABLES Final Result * CBC auto differential (03/08/2025 7:58 PM EDT) [facility] WBC 4.9 4.8 - 10.8 K/mcL LAB HEMETOLOGY METHOD 03/08/2025 8:38 PM EDT [facility] RBC 4.50 3.80 - 4.80 M/mcL LAB HEMETOLOGY METHOD 03/08/2025 8:38 PM EDT [facility] Hemoglobin 13.2 11.5 - 16.0 g/dL LAB HEMETOLOGY METHOD 03/08/2025 8:38 PM EDT [facility] Hematocrit 40.5 35.0 - 47.0 % LAB HEMETOLOGY METHOD 03/08/2025 8:38 PM EDT [facility] MCV 89.6 79.0 - 98.0 FL LAB HEMETOLOGY METHOD 03/08/2025 8:38 PM EDT [facility] MCH 29.2 27.0 - 32.0 pcg LAB HEMETOLOGY METHOD 03/08/2025 8:38 PM EDT [facility] MCHC 32.6 32.0 - 37.0 g/dL LAB HEMETOLOGY METHOD 03/08/2025 8:38 PM EDT [facility] RDW 13.6 11.0 - 15.0 % LAB HEMETOLOGY METHOD 03/08/2025 8:38 PM EDT [facility] Platelets 209 130 - 400 K/mcL LAB HEMETOLOGY METHOD 03/08/2025 8:38 PM EDT [facility] MPV 9.3 7.0 - 11.0 FL LAB HEMETOLOGY METHOD 03/08/2025 8:38 PM EDT [facility] NRBC 0.0 <1.0 % LAB HEMETOLOGY METHOD 03/08[facility]2025 8:[facility] NRBC Absolute 0.00 <0.10 K/mcL LAB HEMETOLOGY METHOD 03/08/2025 8:38 [facility] Neutrophils Relative 51.0 % LAB HEMETOLOGY METHOD 03/08/2025 8:38 PM EDT [facility] Lymphocytes Relative 37.9 % LAB HEMETOLOGY METHOD 03/08/2025 8:38 PM EDT [facility] Monocytes Relative 9.3 % LAB HEMETOLOGY METHOD 03/08/2025 8:38 PM [facility] Eosinophils Relative 0.8 % LAB HEMETOLOGY METHOD 03/08/2025 8:38 PM [facility] Basophils Relative 0.8 % LAB HEMETOLOGY METHOD 03/08/2025 8:38 PM [facility] Immature Granulocytes Relative 0.2 % LAB HEMETOLOGY METHOD 03/08/2025 8:38 PM [facility] Neutrophils Absolute 2.48 1.50 - 7.00 K/mcL LAB HEMETOLOGY METHOD 03/08/2025 8:38 PM [facility] Lymphocytes Absolute 1.84 1.00 - 5.00 K/mcL LAB HEMETOLOGY METHOD 03/08/2025 8:38 PM EDT [facility] Monocytes Absolute 0.45 0.20 - 1.00 K/mcL LAB HEMETOLOGY METHOD 03/08/2025 8:38 PM [facility] Eosinophils Absolute 0.04 0.00 - 0.50 K/mcL LAB HEMETOLOGY METHOD 03/08/2025 8:[facility] Basophils Absolute 0.04 0.00 - 0.20 K/mcL LAB HEMETOLOGY METHOD 03/08/2025 8:38 PM EDT [facility] Immature Granulocytes Absolute 0.01 0.00 - 0.03 K/mcL LAB HEMETOLOGY METHOD 03/08/2025 8:38 PM EDT [facility] Blood Venous blood specimen / Unknown Venipuncture / Unknown 03/08/2025 7:58 PM EDT 03/08/2025 8:24 PM EDT us Marcela Hill MD LAB BLOOD ORDERABLES Final Resul t Performing Organization Address City/[facility]/ZIP Co de Phone Number [facility] [address] [place] [address], [place] [phone] * Magnesium (03/08/2025 7:58 PM EDT) Magnesium 2.6 1.9 - 2.6 mg/dL LAB CHEMISTRY METHOD 03/08/2025 9:01 PM EDT [facility] Blood Venous blood specimen / Unknown Venipuncture / Unknown 03/08/2025 7:58 PM EDT 03/08/2025 8:24 PM EDT us Marcela Hill MD LAB BLOOD ORDERABLES Final Resul t Performing Organization Address City/[facility]/ZIP Co de Phone Number [facility] [address] [place] [address], [place] [phone] * (ABNORMAL) Hepatic function panel (03/08/2025 7:58 PM EDT) Total Protein 6.8 6.0 - 8.0 g/dL LAB CHEMISTRY METHOD 03/08/2025 9:01 PM EDT [facility] Albumin 3.8 3.2 - 5.0 g/dL LAB CHEMISTRY METHOD 03/08/2025 9:01 PM EDT [facility] Total Bilirubin 0.5 0.0 - 1.4 mg/dL LAB CHEMISTRY METHOD 03/08/2025 9:01 PM EDT [facility] Bilirubin, Direct 0.2 0.0 - 0.3 mg/dL LAB CHEMISTRY METHOD 03/08[facility]2025 [facility] Bilirubin, Indirect 0.3 0.0 - 1.1 mg/dL LAB CHEMISTRY METHOD 03/08/2025 9:01 PM EDT [facility] ALT (SGPT) 37 10 - 60 unit/L LAB CHEMISTRY METHOD 03/08/2025 9:01 PM [facility] AST (SGOT) 25 10 - 42 unit/L LAB CHEMISTRY METHOD 03/08/2025 9:[facility] Alkaline Phosphatase 154(H) 42 - 121 unit/L LAB CHEMISTRY METHOD 03/08/2025 9:01 PM [facility] Blood Venous blood specimen / Unknown Venipuncture / Unknown 03/08/2025 7:58 PM EDT 03/08/2025 8:24 PM EDT Mitch Patricia MD LAB BLOOD ORDERABLES Final Res ult [facility] [address] [place] [address], * (ABNORMAL) Basic metabolic panel (03/08/2025 7:58 PM EDT) Sodium 139 133 - 145 mmol/L LAB CHEMISTRY METHOD 03/08/2025 9:01 PM EDT [facility] Potassium 3.5 3.5 - 5.5 mmol/L LAB CHEMISTRY METHOD 03/08/2025 9:01 PM [facility] Chloride 99 96 - 110 mmol/L LAB CHEMISTRY METHOD 03/08/2025 9:[facility] CO2 34(H) 21 - 32 mmol/L LAB CHEMISTRY METHOD 03/08/2025 9:01 PM EDT [facility] Anion Gap 6 3 - 11 LAB CHEMISTRY METHOD 03/08/2025 9:01 PM EDT [facility] Glucose 114(H) 70 - 100 mg/dL LAB CHEMISTRY METHOD 03/08/2025 9:01 [facility] BUN 31(H) 5 - 25 mg/dL LAB CHEMISTRY METHOD 03/08/2025 9:01 [facility] Creatinine 1.02 0.50 - 1.10 mg/dL LAB CHEMISTRY METHOD 03/08/2025 9:01 PM EDT [facility] eGFR 54(L) >=60 mL/min/1. 73m2 LAB CHEMISTRY METHOD 03/08/2025 9:01 PM EDT [facility] Comment:Calculation based on the Chronic Kidney Disease Epidemiology Collaboration (CKD-EPI) equation refit without adjustment for race. BUN/Creatinine Ratio 30.4 LAB CHEMISTRY METHOD 03/08/2025 9:01 PM EDT [facility] Calcium 9.4 8.5 - 10.5 mg/dL LAB CHEMISTRY METHOD 03/08/2025 9:01 PM [facility] Blood Venous blood specimen / Unknown Venipuncture / Unknown 03/08/2025 7:58 PM EDT 03/08/2025 8:24 PM EDT us Marcela Hill MD LAB BLOOD ORDERABLES Final Resul t [facility] [address] [place] [address], * ECG 12 lead (03/08/2025 7:45 PM EDT) Ventricular Rate ECG 83 BPM GEMUSE Atrial Rate 85 BPM GEMUSE QRS Duration 134 ms GEMUSE Q-T Interval 422 ms GEMUSE QTc 495 ms GEMUSE R [place] -27 degrees GEMUSE T [place] 116 degrees GEMUSE ECG Interpretation Ventricular-pac ed rhythm (conduction system pacing) probable atrial fibrillation Abnormal ECG When compared with ECG of 29-JAN-2024 08:17, Vent. rate has increased BY 18 BPM Confirmed by Lili SEVERINO JOHN ([id number]) on 03/10/2025 2:10:36 PM GEMUSE 03/08/2025 7:45 PM EDT 03/10/2025 2:10 PM EDT us Marcela Hill MD ECG ORDERABLES Final Result GEMUSE * MG Mammo Digital Screening w Enrico [...] year. Mammography location: [facility] [address], [address] -------- FINAL REPORT -------- Dictated By: Pravin Mccarthy Dictated Date: 01/21/2025 10:12 ET Assigned Physician: Pravin Mccarthy Reviewed and Electronically Signed By: Pravin Mccarthy Signed Date: 01/21/2025 10:20 ET Workstation ID: [id number] Transcribed By: Self Edit Transcribed Date: 01/21/2025 [...] None Computer-aided detection was employed with the [employer] AI 3-D. TISSUE DENSITY: There are scattered [...] None Computer-aided detection was employed with the [employer] 3-D. TISSUE DENSITY: There are scattered [...] year. Mammography location: [facility] at [address], [address] -------- FINAL REPORT -------- Dictated By: Pravin Mccarthy Dictated Date: 01/21/2025 10:12 ET Assigned Physician: Pravin Mccarthy Reviewed and Electronically Signed By: Pravin Mccarthy Signed Date: 01/21/2025 10:20 ET Workstation ID: [id number] Transcribed By: Self Edit Transcribed Date: 01/21/2025 10:12 ET us Self Referral Sppl IMG BI PROCEDURES Final Resul t from Last 3 Months Insurance [employer] MEDICARE Care Teams Cream Buyer Relationship Specialty Start Date End Date Altagracia Stanton MD [address] [place] [address] PCP - General Internal Medicine 01/21/25
--- OUTSIDE RECORDS SUMMARY | 2025-03-29 19:50 | XMS_ITS | Encounter Summary ---
Author Organization [facility] Address [address] [place] [address] Care Team Providers Care It Risk And Assurance Senior Manager Name Role Phone Altagracia Stanton MD Primary Care Provider [phone] Encounter Details Date Type Department Care Team (Late st Contact Info) Description 11/15/2024 Lab Requisition [facility] [address] [place] [address] Marv Sifuentes PA [address] Isma Huang [address] [address] Effusion, right knee Social History Tobacco Use [...] as of this encounter Plan of Treatment Not on file documented as of this encounter Procedures Procedure [...] 63.0(H) <25.0 % 11/15/2024 5:02 PM EDT [facility] Fluid Lymphocytes 7.0 <75.0 % 11/15/2024 5:02 PM EDT [facility] Fluid Monocytes/Macrop hages 30.0 <70.0 % 11/15/2024 5:02 PM EDT [facility] Synovial Fluid Structure of right knee region / Unknown 11/15/2024 8:30 AM EDT 11/15/2024 1:27 PM EDT us [facility] BODY FLUIDS AND STOOLS OR DERABLES Final Result Performing Organization Address City/[facility] Co de Phone Number [facility] [address] [place] [address], [place] [phone] * Culture body fluid with gram stain (11/15/2024 8:30 AM EDT) Fluid Culture No Growth aerobically/a naerobically after 14 days incubation. 11/29/2024 6:55 AM EDT [facility] Gram Stain Result Moderate WBCs present 11/29/2024 6:55 AM EDT [facility] Gram Stain Result No organisms seen 11/29/2024 6:55 AM EDT [facility] Synovial Fluid Structure of right knee region / Unknown 11/15/2024 8:30 AM EDT 11/15/2024 1:27 PM EDT us Marv [facility] MICROBIOLOGY - GENERAL OR DERABLES Final Result [facility] [address] [place] [address], [place] [phone] * (ABNORMAL) Cell count with reflex differential, body fluid (11/15/2024 8:30 AM EDT) Body Fluid Source Synovial 11/15/2024 4:13 PM EDT [facility] Body Fluid Clarity Cloudy 11/15/2024 4:13 PM EDT [facility] Body Fluid Color Yellow 11/15/2024 4:13 PM EDT [facility] Body Fluid RBC 1,108(H) 0 - 1 /mm3 LAB HEMETOLOGY METHOD 11/15/2024 4:13 PM EDT [facility] Body Fluid Total Nucleated Cells 7,440(H) <150 /mm3 LAB HEMETOLOGY METHOD 11/15/2024 4:13 PM EDT [facility] Synovial Fluid Structure of right knee region / Unknown 11/15/2024 8:30 AM EDT 11/15/2024 1:27 PM EDT us Marv [facility] BODY FLUIDS AND STOOLS OR DERABLES Final Result Performing Organization Address [facility] Co de Phone Number [facility] [address] [place] [address], [place] [phone] * (ABNORMAL) Crystal identification, body fluid (11/15/2024 8:30 AM EDT) Crystals, Fluid Calcium Pyrophospha te(A) Absent 11/15/2024 4:04 PM EDT [facility] Synovial Fluid Structure of right knee region / Unknown 11/15/2024 8:30 AM EDT 11/15/2024 1:27 PM EDT us Marv [facility] BODY FLUIDS AND STOOLS OR DERABLES Final Result [facility] [address] [place] [address], documented in this encounter Visit Diagnoses Diagnosis Effusion, right knee documented in this encounter Care Teams It Risk And Assurance Senior Manager Relationship Specialty Start Date End Date Altagracia Stanton MD [address] [place] [address] PCP - General Internal Medicine 01/21/25 documented as of this encounter
== END 2025-03-29 15:40 | disposition home or self-care (01) ==
LOC: HO.HMCFM 14:46
PROVIDERS: PCP Internal Medicine; Visit Provider Internal Medicine
DX: I50.32 Chronic diastolic (congestive) heart failure (principal); I48.11 Longstanding persistent atrial fibrillation; I10 Essential (primary) hypertension; R53.83 Other fatigue

== ENCOUNTER 2025-03-29 14:45 | Outpatient (REF) | payer MEDICARE, SELFPAY ==
[2025-03-29 18:52] LABS: Alanine Aminotransferase 29 U/L (0-31); Albumin Level 4.6 g/dL (3.5-5.0); Alkaline Phosphatase 122 U/L (39-117); Anion Gap 12 (12-20); Aspartate Amino Transferase 31 U/L (5-31); Blood Urea Nitrogen 15 mg/dL (9-16); Calcium 9.4 mg/dL (8.4-10.2); Carbon Dioxide 34 mmol/L (22-29); Chloride 102 mmol/L (96-108); Estimated Glomerular Filt Rate 51; Iron 63 mcg/dL (30-160); Percent Iron Saturation 18 % (15-50); Potassium 3.7 mmol/L (3.3-5.1); Sodium 144 mmol/L (135-145); Total Iron Binding Capacity 345 mcg/dL (228-428); Total Protein 7.2 g/dL (6.5-8.0); Unsaturated Iron Binding 282 ug/dL
[2025-03-29 19:21] LABS: Folate 16.4 ng/mL (> or = 4.0); Vitamin B12 1644 pg/mL (200-900)
--- OUTSIDE RECORDS SUMMARY | 2025-03-29 20:43 | XMS_ITS | Patient Health Record ---
Author Organization [facility] Address [address] [facility] [place] [address] Care Team Providers Care File Clerk Name Role Phone Altagracia Funk Primary Care Provider Ramona Bonilla Unavailable [phone] Allergies Allergen (clinical drug ingredient) Drug/Non Drug Allergy documented on EMR Reaction Allergy Type Onset Date Status sulfamethoxazole / trimethoprim Bactrim vomiting Drug Allergy Active ciprofloxacin Cipro digestive system shut down Drug Allergy Active Gluten Gluten Unknown Allergy Active Reason For Referral No Information Medications Medication SIG (Take, Route, Frequency, Duration) Notes Start Date End Date Status Combivent 18-103 MCG/ACT 2 puffs Inhalation Six times a day Not-Taking Triamterene-HCTZ 37.5-25 MG 1 tablet in the morning Orally Once a day; Duration: 30 day(s) Not-Taking Calcium Active Furosemide 20 MG 1 tablet Orally Once a day 20mg in am 20 in pm everyday Not-Taking Centrum Silver Activ e Metoprolol Succinate 50 MG 1 capsule Orally Once a day Not-Taking Dicyclomine HCl 10 MG 1 tablet Orally Active Night Splint AFO - L1930 as directed 05/24/2020 Not-Taking Eliquis 5 MG Orally twice a day Active Alendronate Sodium 70 MG (Prior Auth#:[id number] ) Oral; Duration: 28 Not-Taking Ezetimibe 10 MG 1 tablet Oral Once a day Active Physical Therapy . . . 2-3x/week; Duration: 3-4 weeks 06/28/2020 Not-Taking Flonase 50 MCG/ACT 2 sprays Nasally Once a day; Duration: 30 day(s) Active Magnesium Not-Taking Gas Relief Active Simvastatin 20 MG 1 tablet every evening Orally Once a day; Duration: 30 day(s) Not-Taking ProAir RespiClick Ac tive PreserVision AREDS 2 Active Torsemide Active Aspir-81 Active Magnesium 400 MG 1 capsule with a meal Orally Active MiraLax Active Omeprazole Active Oscal 500/200 D-3 Ac tive Vitamin B Complex daily Ac tive Vitamin C daily Active Vitamin D daily Active Walking Boot/Pneumatic As directed Wear Daily; Duration: Until further notice Not-Taking Aciphex 20mg daily Not-Jason ing Aspirin 81mg daily Not-Jason ing Immunizations Vaccine Route Administration Date Status Comme [...] primary osteoarthritis of the ankle and/or foot (074140023) Primary osteoarthrit is, left ankle and foot (M19.072) Active confirmed Problem Acquired hammer toe of left foot (0994760097318112) Other hammer toe(s) (acquired), left foot (M20.42) Active confirmed Vital Signs Blood pressure diastolic 65 mm Hg 03/03/2025 Height 5 ft 6 in in 03/03/2025 Blood pressure systolic 128 mm Hg 03/03/2025 Weight 158 lbs 03/03/2025 BMI 25.5 kg/m2 03/03/2025 Procedures Procedure Date Ordered Date Performed Result Body Sit e 26656-YOXRZFR NAIL, 6 OR MORE 12/01/2024 N/A 24908-RQJZXBI NAIL, 6 OR MORE 03/03/2025 N/A Encounters Encounter Location Date Provider Diagnosis [facility] [address] [address] 12/01/2024 Ramona Miller Pain in right toe(s) M79.674 ; Onychomycosis B35.1 and Pain in left toe(s) M79.675 [facility] [place] [address] [place] [address] 03/03/2025 Ramona Miller Pain in right toe(s) M79.674 ; Onychomycosis B35.1 and Pain in left toe(s) M79.675 Assessments Encounter Date Diagnosis (ICD Code) Assessment Notes Treatment Notes Treatment Clinical Notes Section Notes 12/01/2024 Pain in right toe(s) (ICD-10 - M79.674) 03/03/2025 Pain in right toe(s) (ICD-10 - M79.674) 03/03/2025 Onychomycosis (ICD-10 - B35.1) 12/01/2024 Onychomycosis (ICD-10 - B35.1) 03/03/2025 Pain in left toe(s) (ICD-10 - M79.675) 12/01/2024 Pain in left toe(s) (ICD-10 - M79.675) Plan Of Treatment Pending Test Test Name Order Date X ray : Foot, right 2V 12/04/2011 X ray : Foot, right 2V 12/12/2011 X ray : Foot, right 2V 12/19/2011 X ray : Foot, right 2V 01/08/2012 X ray : Foot, left 3V 05/24/2020 X ray : Foot, left 3V 05/06/2022 77259-PQSRIZU NAIL, 6 OR MORE 12/01/2024 09884-HTPOQMC NAIL, 6 OR MORE 03/03/2025 85155-Bckqethl Plate 05/21/2018 77837-Sbwqbitq Plate 01/06/2014 37573-Ehvcilwa Plate 12/12/2015 59098- Debride <25 sq cm 12/27/2015 07355- Debride <25 sq cm 01/20/2014 53627- Debride <25 sq cm 01/08/2012 04090- Debride <25 sq cm 03/23/2012 87376- Debride <25 sq cm 12/13/2011 33836- Debride <25 sq cm 12/19/2011 44412- Debride <25 sq cm 12/12/2011 98470- Debride <25 sq cm 07/08/2011 81437- Debride <25 sq cm 09/16/2011 66206- Debride <25 sq cm 11/11/2011 61976- Debride <25 sq cm 12/04/2011 60850-EPEYKGAS OF HEMATOMA/FLUID 019 81826,Y5368-FUF TENDON SHEATH/LIGAMENT 0 08/09/2020 78451, J0702- Neuroma/Injection 08/10/19 97690- Nail Unit Biopsy 01/07/2018 Next Appt Details Provider Name:Ramona Caban ferny, 06/08/2025 09:00:00 AM, [address] [place], [address], Insurance Providers Payer Name Payer Address Payer Phone Subscriber Number Group Number Insured Name Patient Relationship to Insured Coverage Start Date Coverage End Date [employer] Medicare Adv-21486 [address] [address] [place] [address] [id number] Evelin Champione Self - patient is the insured Medical (General) History Medical History History ICD Code thyroid disorder mumps measles chicken pox cancer back, hip, knee pain Arthritis celiac disease Surgical History Surgery Date(Month/Year) breast tumor removal 1997 cholecystectomy 1985 colon resection 1985 hysterectomy 1979 lens implant OD, OS 2004 hammer toe 2011 heart surgery unspecified Cardio Version 02/2020,04/2020 Hospitalization History Reason Date(Month/Year) [facility] for Surgery for perforated bowel 12 days 03/2016-04/2016 [facility] for a Heart Procedure 04/2015
--- OUTSIDE RECORDS SUMMARY | 2025-03-29 20:44 | XMS_ITS | Patient Health Record ---
Author Organization [facility] Address [address] [place] [address] Care Team Providers Care Patternmaker Plaster Name Role Phone Barb (RETIRED) Kris JOHNSON Primary Care Provide r Unavailable Bella Reyes Unavailable [phone] Allergies Allergen (clinical drug ingredient) Drug/Non Drug Allergy documented on EMR Reaction Allergy Type Onset Date Status Sulfa Unknown Drug Allergy Active ciprofloxacin Cipro Unknown Drug Allergy Act ciera Substance with 2-gfzrxnv-4-methylglutar yl-coenzyme A reductase inhibitor mechanism of action (substance) statins (uncoded) Unknown Allergy Acti ve Reason For Referral No Information Medications Medication SIG (Take, Route, Frequency, Duration) Notes Start Date End Date Status Vitamin B Complex 1 1 Orally qd Active Multi Vitamin/Minerals 1 1 Orally qd Active Calcium 1 tab Oral; Duration : 14 days Active Gas-X 80 MG 1 tablet after meals and at bedtime as needed Orally once a day Active Vitamin C 500 MG 1 tablet Orally Once a day Active Aspir-81 81 MG 1 tablet Orally Once a day Active Dicyclomine HCl 10 MG TAKE 1-2 CAPSULES BY MOUTH EVERY 6 HOURS NEEDED FOR ABDOMINAL CRAMPS/DISCOMFORT 30; Duration: 90 Active MiraLax Active Omeprazole 20 MG 1 tablet Orally Once a day Active Vitamin D 1000 UNIT 1 tablet Orally Once a day Active ProAir RespiClick Ac tive Ezetimibe 10 MG 1 tablet Orally Once a day; Duration: 30 day(s) Active Eliquis 5 MG as directed Orally t wice a day Active Magnesium 400 MG as directed Orally Active Oscal 500/200 D-3 500-200 MG-UNIT 1 tablet Orally Twice a day; Duration: 30 day(s) Active Turmeric 500 MG as directed Orally Active PreserVision AREDS 2 - as directed Orally Active Torsemide 20 MG as directed Orally Active [employer] Stool Softener 8.6-50 MG TAKE 2 TABLETS BY MOUTH DAILY AT BEDTIME Oral; Duration: 15 Active Immunizations Vaccine Route Administration Date [...] Problem Status W/U Status Risk Notes Problem Epigastric pain (92709801) Epigastric abdominal pain (R10.13) Active confirmed Problem Epigastric pain (20681629) Epigastric pain (R10.13) Active confirmed Problem Gastro-esophagea l reflux disease without esophagitis (262472869) Gastro-esophagea l reflux disease without esophagitis (K21.9) Active confirmed Problem Abdominal bloating (808637964) Abdominal bloating (R14.0) Active confirmed Problem Change in bowel habit (84868762) Change in bowel habits (R19.4) Active confirmed Problem Atrophic gastritis (47914438) Unspecified chronic gastritis without bleeding (K29.50) Active confirmed Problem 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) Polyp of stomach and duodenum (K31.7) Active confirmed Problem Celiac disease (344834488) Celiac disease (K90.0) Active confirmed Problem Hiatal hernia (54009047) Hiatal hernia (K44.9) Active confirmed Problem Constipation (92591766) Constipation, unspecified constipation type (K59.00) Active confirmed Problem Barium swallow abnormal (676374541) Abnormal barium swallow (R93.3) Active confirmed Problem Flatulence, eructation and gas pain (994741707) Abdominal distention (R14.0) Active confirmed Plan Of Treatment Future Test Test Name Order Date UPPER GI ENDOSCOPY 02/09/2015 UPPER GI ENDOSCOPY 02/01/2020 UPPER GI ENDOSCOPY 09/19/2023 Insurance Providers Payer Name Payer Address Payer Phone Subscriber Number Group Number Insured Name Patient Relationship to Insured Coverage Start Date Coverage End Date [employer] Medicare Adv (PPO) [address] [address] [place] [address] [id number] CRYSTAL MOCTEZUMA Self - patient is the insured Medical (General) History Medical History History ICD Code Colonoscopy and EGD 8--colon was negative, upper had a moderate-sized HH--no significant esophagitis 1 Small tubular adenoma removed in 2004 Supraventriclar tachycardia treated with ablation and medication--not successful----scheduled for another ablation on 02/21/[address] Rodriguez at [facility] Breast cancer treated with lumpectomy, X RT, and Tamoxifen Denies DC,DM,CVA,Lung disease,renal dise ase Duodenal ulcer in the [...]
[2025-03-30 21:23] LABS: Lyme Abs Screen <0.90 index
== END 2025-03-29 14:46 | disposition home or self-care (01) ==
LOC: HO.WFDLDS 14:45
PROVIDERS: PCP Internal Medicine; Visit Provider Internal Medicine
DX: Z23 Encounter for immunization (principal); I11.0 Hypertensive heart disease with heart failure; I50.32 Chronic diastolic (congestive) heart failure; E04.1 Nontoxic single thyroid nodule; I48.11 Longstanding persistent atrial fibrillation; R53.83 Other fatigue; Z79.01 Long term (current) use of anticoagulants; Z79.899 Other long term (current) drug therapy
CPT/HCPCS: 36415; 80053; 82607; 82746; 83540; 84443; 86376; 86617; 86618; 90471; 90715; 96127; 99212